=== PATIENT | female | born 1940 | race Hispanic/Latino ===

== ENCOUNTER 2018-11-18 00:08 | Emergency (ER) | payer SELFPAY ==
--- OUTSIDE RECORDS SUMMARY | 2018-11-18 00:11 | XMS REPORT ---
:1940 Author Organization e[employer] Care Team Providers Name Role Phone Alejandra Oliva Provider Role Unavailable Allergies, Adverse Reactions, Alerts Substance Reaction Event Type N.K.D.A. Info Not Available Non Drug Allergy Problems Problem Type Condition Code Onset Dates Condition Status Problem High blood pressure I10 Active Problem Postnasal drip R09.82 Active Problem Circulation problem I99.9 Active Problem Shortness of breath R06.02 Active Problem Acquired hypothyroidism E03.9 Active Problem Essential hypertension I10 Active Problem Heart disease I51.9 Active Problem High cholesterol E78.00 Active Problem Migraines G43.909 Active Problem Mixed hyperlipidemia E78.2 Active Assessment Essential hypertension I10 Active Assessment Respiratory symptoms R09.89 Active Assessment Acquired hypothyroidism E03.9 Active Assessment Mixed hyperlipidemia E78.2 Active Assessment Persistent cough for 3 weeks or R05 Active longer Assessment Shortness of breath R06.02 Active Problem Persistent cough for 3 weeks or R05 Active longer Assessment Postnasal drip R09.82 Active Problem Respiratory symptoms R09.89 Active Medications Medication Code Code Instructions Start End Status Dosage System Date Date Hydrochlorothiazide [facility] 39464512946 12.5 MG Orally Active 1 tablet Once daily in the morning Timolol Maleate ND 50637058959 10 MG Orally Active 1 tablet Twice a day with food Calcio Lex NDC 0 Active not defined Augmentin [facility] 64977580011 500-125 MG October 31October Active 1 tablet Orally every 2018 26, 12 hrs 2019 Losartan Potassium ND 84209337555 50 MG Orally Active 1 tablet Once a day Vitamin D3 ND 82946949587 2000 UNIT Active 1 capsule Orally Once a day ProAir HFA ND 51469487833 108 (90 Base) October 31, Active 2 puffs MCG/ACT 2019 as needed Inhalation for every 4-6 hrs sob/wheez ing Atorvastatin Calcium ND 08707808030 40 MG Orally Active 1 tablet Once a day Levothyroxine Sodium ND 68836858333 100MCG Orally Active 1 tablet Once a day on an empty stomach in the morning Results No Known Results Summary Purpose eClinicalWorks Submission
[2018-11-18 01:08] LABS: Absolute Lymphocytes (CBC) 2.3 K/uL (0.7-4.9); Absolute Neutrophil 6.9 K/uL (1.8-8.0); Basophils % 0.6 % (0-1.3); Eosinophils % 5.5 % (0-4.4); Hematocrit 39.5 % (36.0-45.0); Lymphocytes % 21.3 % (15.3-44.8); MPV 10.8 fL (7.6-11.3); Monocytes % 9.4 % (3.3-12.3); RBC Red Blood Cell Count 4.11 M/uL (3.86-4.86)
[2018-11-18 01:22] LABS: Potassium 4.3 mmol/L (3.5-5.1)
[2018-11-18] MEDS ORDERED: MECLIZINE HCL 12.5 MG TAB ONE (01:33)
--- NOTE | 2018-11-18 02:57 | ER ---
Nurse's Notes [facility] Name: Brittany Villarreal Age: 78 yrs Sex: Female : 1940 Arrival Date: 11/18/2018 Time: 00:14 Bed 7 Private MD: Alejandra Oliva Diagnosis: Uncontrolled hypertension. Dizziness Presentation: 11/18 00:25 Presenting complaint: Child states: pt with increased blood pressure tonight. pt was ak1 assessed earlier in the evening by EMS and they refused transport. pt takes unknown medication for blood pressure. pt PCP Dr. Whatley. Transition of care: patient was not received from another setting of care. Onset of symptoms was November 18, 2018. Risk Assessment: Do you want to hurt yourself or someone else? Patient reports no desire to harm self or others. Initial Sepsis Screen: Does the patient meet any 2 criteria? No. Patient's initial sepsis screen is negative. Does the patient have a suspected source of infection? No. Patient's initial sepsis screen is negative. Care prior to arrival: None. 00:25 Method Of Arrival: Wheelchair ak1 00:25 Acuity: [place]ERETTE 3 ak1 Triage Assessment: 00:36 General: Appears in no apparent distress. Behavior is calm, cooperative. Pain: Denies ak1 pain. EENT: No signs and/or symptoms were reported regarding the EENT system. Neuro: Level of Consciousness is awake, alert, obeys commands, Oriented to person, Veterinary Laboratory Technician are equal bilaterally Moves all extremities. Gait is steady, Speech is normal, Facial symmetry appears normal. Cardiovascular: No deficits noted. Respiratory: No deficits noted. GI: No signs and/or symptoms were reported involving the gastrointestinal system. : No signs and/or symptoms were reported regarding the genitourinary system. Derm: No signs and/or symptoms reported regarding the dermatologic system. Musculoskeletal: No signs and/or symptoms reported regarding the musculoskeletal system. Historical: - Allergies: 00:36 No Known Allergies; ak1 - Home Meds: 00:36 Synthroid Oral [Active]; Aspirin Oral [Active]; atorvastatin oral oral [Active]; ak1 unknown blood pressure medication [Active]; - PMHx: 00:36 Hypertension; Thyroid problem; Hyperlipidemia; ak1 - PSHx: 00:36 ear sx; breast sx duct clogged; Hysterectomy; right knee sx; Tonsillectomy; ak1 - Immunization history:: Adult Immunizations up to date, Flu vaccine is up to date. - Social history:: Smoking status: Patient/guardian denies using tobacco. - Ebola Screening: : No symptoms or risks identified at this time. Screenin:39 Abuse screen: Denies threats or abuse. Denies injuries from another. Nutritional ak1 screening: No deficits noted. Tuberculosis screening: No symptoms or risk factors identified. Fall Risk None identified. Assessment: 01:21 Reassessment: Patient appears in no apparent distress at this time. No changes from ak1 previously documented assessment. pt taken to CT. Vital Signs: 00:24 BP 184 / 84; Pulse 74; Resp 16; Temp 98.2; Pulse Ox 97% on R/A; Weight 65.77 kg (R); ak1 Height 5 ft. 7 in. (170.18 cm) (R); Pain 0/10; 00:36 BP 167 / 75; Pulse 72; Resp 16; Pulse Ox 98% on R/A; ak1 03:13 BP 178 / 83; Pulse 65; Resp 18; Temp 98.2; Pulse Ox 98% on R/A; Pain 0/10; ak1 00:24 Body Mass Index 22.71 (65.77 kg, 170.18 cm) ak1 ED Course: 00:14 Patient arrived in ED. es 00:14 Alejandra Oliva MD is Private Physician. es 00:17 Mahad Dumont MD is Attending Physician. pkl 00:24 Juliana Mata, DELMAR is Primary Nurse. ak1 00:26 Triage completed. ak1 00:36 Arm band placed on Patient placed in an exam room, on a stretcher, on pulse oximetry, ak1 Patient notified of wait time. 00:39 Patient has correct armband on for positive identification. Placed in gown. Bed in low ak1 position. Call light in reach. Side rails up X2. Adult w/ patient. Pulse ox on. NIBP on. Door closed. Warm blanket given. Head of bed elevated. 00:57 Initial lab(s) drawn, by me, sent to lab. Inserted saline lock: 22 gauge in right tl2 antecubital area, using aseptic technique. Blood collected. 02:28 CT Head Brain wo Cont In Process Unspecified. EDMS 02:56 Alejandra Oliva MD is Referral Physician. pkl 03:15 No provider procedures requiring assistance completed. IV discontinued, intact, ak1 bleeding controlled, No redness/swelling at site. Pressure dressing applied. Administered Medications: 01:20 Drug: Meclizine 50 mg Route: PO; ak1 03:17 Follow up: Response: No adverse reaction ak1 Outcome: 02:57 Discharge ordered by . pkl 03:15 Discharged to home via wheelchair, with family. ak1 03:15 Condition: improved 03:15 Discharge instructions given to patient, family, Instructed on discharge instructions, follow up and referral plans. medication usage, Demonstrated understanding of instructions, follow-up care, medications, Prescriptions given X 2. 03:16 Patient left the ED. ak1 Signatures: Dispatcher [employer] Mahad Marie MD MD pkGeorgette Whittaker Amber RN RN ak1 Smiley Bhat RN RN tl2
--- NOTE | 2018-11-18 02:58 | EDPHYS ---
Physician Documentation [facility] Name: Brittany Villarreal Age: 78 yrs Sex: Female : 1940 Arrival Date: 11/18/2018 Time: 00:14 Bed 7 Private MD: Alejandra Oliva ED Physician Mahad Dumont HPI: 11/18 00:42 This 78 yrs old Female presents to ER via Wheelchair with complaints of High pkl Blood Pressure. 00:42 Onset: The symptoms/episode began/occurred just prior to arrival, 3 hour(s) ago. pkl Associated signs and symptoms: Pertinent positives: dizziness. Historical: - Allergies: 00:36 No Known Allergies; ak1 - Home Meds: 00:36 Synthroid Oral [Active]; Aspirin Oral [Active]; atorvastatin oral oral [Active]; ak1 unknown blood pressure medication [Active]; - PMHx: 00:36 Hypertension; Thyroid problem; Hyperlipidemia; ak1 - PSHx: 00:36 ear sx; breast sx duct clogged; Hysterectomy; right knee sx; Tonsillectomy; ak1 - Immunization history:: Adult Immunizations up to date, Flu vaccine is up to date. - Social history:: Smoking status: Patient/guardian denies using tobacco. - Ebola Screening: : No symptoms or risks identified at this time. ROS: 00:42 Eyes: Negative for injury, pain, redness, and discharge, ENT: Negative for injury, pkl pain, and discharge, Neck: Negative for injury, pain, and swelling, Cardiovascular: Negative for chest pain, palpitations, and edema, Respiratory: Negative for shortness of breath, cough, wheezing, and pleuritic chest pain, Abdomen/GI: Negative for abdominal pain, nausea, vomiting, diarrhea, and constipation, Back: Negative for injury and pain, : Negative for injury, bleeding, discharge, and swelling, MS/Extremity: Negative for injury and deformity, Skin: Negative for injury, rash, and discoloration. 00:42 Neuro: Positive for dizziness, Negative for loss of consciousness. Exam: 00:42 Head/Face: Normocephalic, atraumatic. Eyes: Pupils equal round and reactive to light, pkl extra-ocular motions intact. Lids and lashes normal. Conjunctiva and sclera are non-icteric and not injected. Cornea within normal limits. Periorbital areas with no swelling, redness, or edema. ENT: Nares patent. No nasal discharge, no septal abnormalities noted. Tympanic membranes are normal and external auditory canals are clear. Oropharynx with no redness, swelling, or masses, exudates, or evidence of obstruction, uvula midline. Mucous membranes moist. Neck: Trachea midline, no thyromegaly or masses palpated, and no cervical lymphadenopathy. Supple, full range of motion without nuchal rigidity, or vertebral point tenderness. No Meningismus. Chest/axilla: Normal chest wall appearance and motion. Nontender with no deformity. No lesions are appreciated. Cardiovascular: Regular rate and rhythm with a normal S1 and S2. No gallops, murmurs, or rubs. Normal PMI, no JVD. No pulse deficits. Respiratory: Lungs have equal breath sounds bilaterally, clear to auscultation and percussion. No rales, rhonchi or wheezes noted. No increased work of breathing, no retractions or nasal flaring. Abdomen/GI: Soft, non-tender, with normal bowel sounds. No distension or tympany. No guarding or rebound. No evidence of tenderness throughout. Back: No spinal tenderness. No costovertebral tenderness. Full range of motion. Skin: Warm, dry with normal turgor. Normal color with no rashes, no lesions, and no evidence of cellulitis. MS/ Extremity: Pulses equal, no cyanosis. Neurovascular intact. Full, normal range of motion. Neuro: Awake and alert, GCS 15, oriented to person, place, time, and situation. Cranial nerves II-XII grossly intact. Motor strength 5/5 in all extremities. Sensory grossly intact. Cerebellar exam normal. Normal gait. Vital Signs: 00:24 BP 184 / 84; Pulse 74; Resp 16; Temp 98.2; Pulse Ox 97% on R/A; Weight 65.77 kg (R); ak1 Height 5 ft. 7 in. (170.18 cm) (R); Pain 0/10; 00:36 BP 167 / 75; Pulse 72; Resp 16; Pulse Ox 98% on R/A; ak1 03:13 BP 178 / 83; Pulse 65; Resp 18; Temp 98.2; Pulse Ox 98% on R/A; Pain 0/10; ak1 00:24 Body Mass Index 22.71 (65.77 kg, 170.18 cm) ak1 MDM: 00:18 Patient medically screened. pkl 02:55 Data reviewed: vital signs, nurses notes, lab test result(s), radiologic studies, CT pkl scan. 11/18 00:42 Order name: CBC with Diff; Complete Time: 01:23 pkl 11/18 00:42 Order name: Chem 7; Complete Time: 01:23 pkl 11/18 00:42 Order name: CT Head Brain wo Cont pkl Administered Medications: 01:20 Drug: Meclizine 50 mg Route: PO; ak1 03:17 Follow up: Response: No adverse reaction ak1 Disposition: 11/18/18 02:57 Discharged to Home. Impression: Uncontrolled hypertension. Dizziness. - Condition is Stable. - Prescriptions for Antivert 25 mg Oral Tablet - take 1 tablet by ORAL route every 8 hours As needed; 20 tablet. Clonidine 0.1 mg Oral Tablet - take 1 tablet by ORAL route every 12 hours; 30 tablet. - Medication Reconciliation Form, Thank You Letter, Antibiotic Education, Prescription Opioid Use form. - Follow up: Alejandra Oliva MD; When: 2 - 3 days; Reason: Re-evaluation by your physician. - Problem is new. - Symptoms have improved. Signatures: Dispatcher [employer] EDMS Mahad Dumont MD MD pkJuliana Luna RN RN ak1 Corrections: (The following items were deleted from the chart) 03:16 02:57 11/18/2018 02:57 Discharged to Home. Impression: Uncontrolled hypertension. ak1 Dizziness. Condition is Stable. Forms are Medication Reconciliation Form, Thank You Letter, Antibiotic Education, Prescription Opioid Use. Follow up: Alejandra Oliva; When: 2 - 3 days; Reason: Re-evaluation by your physician. Problem is new. Symptoms have improved. pkl
--- NOTE | 2018-11-18 10:28 | RAD REPORT ---
EXAM DESCRIPTION: CT HEAD WITHOUT CONTRAST CLINICAL HISTORY: DIZZINESS COMPARISON: 11/18/2018 TECHNIQUE: Axial [address] imaging of the brain. Reformatted coronal and sagittal images ob tained. This examination was performed according to our departmental dose optimization program, which include s automated exposure control, adjustment of the mA and/or kV according to patient size and/or use of iterative reconstruction technique. FINDINGS: The ventricles and extra-axial fluid spaces are mildly prominent due to cortical volume lo ss. Mild decreased white matter attenuation secondary to chronic microvascular ischemic change. There is no hemorrhage. No mass lesion. No midline shift. No acute infarction. Normal cerebellum and vermis. Fourth ventricle is midline. Prepontine cisterns are not effaced. Atherosclerotic calcifications within the internal carotid arteries and vertebral arteries. Imaged intraorbital contents appear normal. Intact skull base. Evidence of left mastoidectomy. Partia l opacification of the inferior right mastoid air cells. Unremarkable calvarium and scalp soft tissue s. IMPRESSION: 1. Mild senescent brain changes. No intracranial acute finding. 2. Status post left mastoidectomy. Mild right mastoid effusion. Electronically signed by: Huong Shabazz DO 11/18/2018 2:39 AM CDT Due to temporary technical issues with the PACS/Fluency reporting system, reports are being signed by the in house radiologist as a courtesy to ensure prompt reporting. The interpreting radiologist is f ully responsible for the content of the report.
== END 2018-11-18 03:16 | disposition home or self-care (01) ==
LOC: ER 00:08
DX: I10 Essential (primary) hypertension (principal); E78.5 Hyperlipidemia, unspecified; E07.9 Disorder of thyroid, unspecified; Z79.82 Long term (current) use of aspirin
CPT/HCPCS: 36415; 70450; 80048; 85025; 99284

== ENCOUNTER 2021-01-09 16:23 | Inpatient (IN) | payer OTHER ==
--- OUTSIDE RECORDS SUMMARY | 2021-01-09 16:33 | XMS REPORT | Continuity of Care Document ---
:1940 Author Organization [facility] t Address [address] [place] [address] Care Team Providers Name Role Phone Aide Lei Attending Clinician Unavailable Wyatt Scott Admitting Clinician Unavailable Payers Payer Name Policy Type Policy Number Effective Date Expiration Date S ource Problems This patient has no known problems. Allergies, Adverse Reactions, Alerts Allergy Allergy Status Severity Reaction(s) Onset Inactive Treating Comm ents Source Name Type Date Date Clinician No Known DA Active U AMANDA Allergie 01-08 Corpus s 00:00: [address] Medications Ordered Filled Start Stop Current Ordering Indication Dosage Frequency Signature Comments Components Source Medication Medication Date Date Medication? Clinician (SIG) Name Name ProAir HFA ProAir HFA Yes Alejandra [address] [facility] needed for [facility] - 00:00: sob[facility] Augmentin Augmentin 2019- No Alejandra [address] [facility]26 [facility] Hydrochloro Hydrochloro Yes Alejandra [address] [facility] thiazide thiazide [facility] in the [facility] Timolol Timolol Yes Alejandra [address] [facility] Maleate Maleate [facility] with food [facility] Calcio del Calcio del Yes Alejandra not [facility] defined [facility] Losartan Losartan Yes Alejandra [address] Potassium Potassium [facility] Vitamin D3 Vitamin D3 Yes Alejandra [address] [facility]ender [facility] Atorvastati Atorvastati Yes Alejandra [address] [facility] n Calcium n Calcium [facility] Levothyroxi Levothyroxi Yes Alejandra [address] [facility] ne Sodium ne Sodium [facility] on an [facility] stomach in l the [facility]pat[facility] morning ent Clinics Procedures This patient has no known procedures. Encounters Start End Encounter Admission Attending Care Care Encounter Source Date/Time Date/Time Type Type Clinicians Facility Department ID 2021-01-08 2021-01-08 Emergency EM Do, [facility] [id number] [facility] 19:45:00 19:45:00 [place] [id number] [facility] 2020-12-27 2020-12-27 Outpatient [facility] [id number] [facility] 2020-12-06 2020-12-06 Outpatient [facility] [id number] [facility] 2020-10-05 2020-10-05 Outpatient [facility] [id number] [facility] 2020-10-04 2020-10-04 Outpatient [facility] [id number] [facility] 2019-01-03 2019-01-03 Outpatient [facility] [id number] [facility] 11:36:00 11:36:00 [facility] 2018-10-31 2018-10-31 [facility] [id number] 09:00:00 09:00:00 [facility] Results Test Description Test Time Test Comments Results Result Comments Source COVID 19 INHOUSE AG 2021-01-09 12:10:00 Test Item Value Reference Range Interpretation Comme nts COVID 19 INHOUSE AG (test NEGATIVE Negative " The Gisela SARS Antigen JOANNA does not code = [id number]) differen tiate betweenSARS-CoV and SARS-CoV-2 " e Gisela SARS Antigen JOANNA employs immunof luorescencetechnology in a sandwich gina gn that is used with Gisela todetect nucleocapsid protein from SARS-CoV and SA RS-CoV-2.This test allows for the detecti on of SARS-CoV [id number]. The test detects, but does not differ entiate,between the two viruses. " Resu lts are for the identification of RCSS-MvK-0zwjpklnnbmwp protein antigen . Antigen is generallydetect able in upper respiratory specimens durin g the acutephase of infection. Posi tive results indicate the presenceof everardo l antigens, but clinical correlation wit h patienthistory and other diagnosti c information is necessary todet ermine infection status. Positive result s do not rule outbacterial in fection or co-infection with other viru ses. Theagent detected may not be the definite cause of disease. " Nega tive results should be treated as pres umptive " This test has not been FDA cl eared or approved; the testhas been au thorized by FDA under an Emergency UseAu thorization (EUA) for use by laboratories certified undert CLIA that meet the r equirements to perform moderate,high o r waived complexity tests. This garry t is authorized foruse at the Point of Ca re (POC), i.e., in patient careset tings operating under a CLIA Certificat e of Waiver,Certificate of Compliance, or Certificate of Accreditation - XR L-SPINE 2/3 [id number] 22:50:00 [facility] 1940 Sex: F Patient Name: MANOJ RONDON Unit No: [id number] EXAMS: CPT CODE: [id number] XR L-SPINE 2/3 [id number] Reason: FALL R HIP PAIN PROCEDURE INFORMATION: Exam: XR Lumbosacral Spine Exam date and time: 01/08/2021 8:18 PM Age: 80 years old Clinical indication: Injury or trauma; Fall; Blunt trauma (contusions or hematomas); Additional info: Fall R hip pain TECHNIQUE: Imaging protocol: XR of the lumbosacral spine. Views: 2 or 3 views. COMPARISON: CR XR HIP BI W/PELVIS 01/08/2021 9:18 PM FINDINGS: Bones/joints: No evidence of vertebral body height loss. Alignment lumbar spine well preserved without significant listhesis. Bony degenerative changes moderate. Soft tissues: Unremarkable soft tissues. Vasculature: Vascular calcifications. Suspected abdominal aortic aneurysm. IMPRESSION: 1. No acute fracture or dislocation of the lumbar spine. 2. Suspected abdominal aortic aneurysm. Aortic ultrasound recommended when clinically appropriate. INTERNAL CODING PURPOSES ONLY RESULT CODE: CVR t [id number] Reported and signed by: Marco Gutierrez MD CC: Lou Gonzalez STONE MASON; Jesica Lovell DO Technologist: Bayron Painter CT Trscrpt Dt/ ([id number])[email or web address].VR Orig Print D/T: S: 01/08/2021(2249) [place] [facility] NAME: MANOJ [facility] [id number] [facility] PHYS: [place] [address] : 1940 AGE: 80 SEX: F LOC: [place] PHONE #: [phone] EXAM DATE: 01/08/2021 STATUS: REG ER FAX #: RAD NO: DC Dt: PAGE 1 Signed ReportBASIC METABOLIC PANEL 2021-01-08 22:45:00 Test Item Value Reference Range Interpretation Comments SODIUM (test code = 132 MMOL/L 133-145 L NA) POTASSIUM (test code = 4.4 MMOL/L 3.6-5.2 N K) CHLORIDE (test code = 96 MMOL/L 100-108 L CL) CARBON DIOXIDE (test 26 MMOL/L 22-32 N code = CO2) GLUCOSE (test code = 171 MG/DL 65-99 H Results of this assay GLU) method may be f alsely depressed orele vated if patient is t aking sulfasalazine. BLOOD UREA NITROGEN 28 MG/DL 6-20 H (test code = BUN) GLOMERULAR FILTRATION 50 32-75 N Report ing units: RATE (test code = GFR) mL/mi n/1.73m\\S\\2 (Modified MDRD Formula) CREATININE (test code 1.05 MG/DL 0.60-1.00 H = CREAT) CALCIUM (test code = 7.7 MG/DL 8.7-10.5 L CA) - XR HIP BI [id number] 22:43:00 [facility] : 1940 Sex: F Patient Name: MANOJ RONDON Unit No: [id number] EXAMS: CPT CODE: [id number] XR HIP BI [id number] Reason: FALL R HIP PAIN PROCEDURE INFORMATION: Exam: XR Bilateral Hips Exam date and time: 01/08/2021 8:18 PM Age: 80 yearsold Clinical indication: Injury or trauma; Fall; Blunt trauma (contusions or hematomas); Right; Hip; Additional info: Fall R hip pain TECHNIQUE: Imaging protocol: XR b ilateral hips. Views: 3 or 4 views of hips with pelvis when performed. COMPARISON: No relevant images were readily available for comparison purposes. FINDINGS:Bones/joints: Mild to moderately displaced acute appearing subcapital right femoral neck fracture. Bony degenerative changes. Soft tissues: Unremarkable soft tissues. Vasculature: Vascular calcifications. IMPRESSION: Acute right femoral neck fracture. INTERNAL CODING PURPOSES ONLY RESULT CODE: CVR at 2243 Reported and signed by: Marco Gutierrez MD CC: Lou Gonzalez STONE MASON; Jesica Lovell DO Technologist: Bayron Painter CT Trscrpt Dt/ ([id number])[email or web address].VR Orig Print D/T: S: 01/08/2021 (2242) [place] FSED NAME: MANOJ RONDON [id number] [place] [address] PHYS: [place] [address] : 1940 AGE: 80 SEX: F LOC: [place] PHONE #: [phone] EXAM DATE: 01/08/2021 STATUS: REG ER FAX #: RAD NO: DC Dt: PAGE 1 Signed ReportCBC W/AUTO [id number] 22:03:00 Test Item Value Reference Range Interpretation Comments WHITE BLOOD CELL (test 15.06 x10 3/uL 4.80-10.80 H Res ults called to code = WBC) and read back Nafisa ALMEIDA RN;2202, 01/08/21, D.LAB.AMQ. RED BLOOD CELL (test 3.32 x10 6/uL 4.2-5.4 L code = RBC) HEMOGLOBIN (test code = 10.6 G/DL 12.0-16.0 L HGB) HEMATOCRIT (test code = 32.2 % 37-47 L HCT) MEAN CELL VOLUME (test 97.0 FL 81-99 N code = MCV) MEAN CELL HGB (test 31.9 PG 27-31 H code = MCH) MEAN CELL HGB 32.9 G/DL 33-37 L CONCENTRATION (test code = MCHC) RED CELL DISTRIBUTION 12.8 % 11.5-14.5 N WIDTH (test code = RDW) PLATELET COUNT (test 190 x10 3/uL 150-450 N code = PLT) MEAN PLATELET VOLUME 11.0 FL 7.4-10.4 H (test code = MPV) NEUTROPHIL % (test code 77.7 % 42-86 N = NT%) LYMPHOCYTE % (test code 12.2 % 24-44 L = LY%) MONOCYTE % (test code = 9.1 % 0.0-4.0 H MO%) EOSINOPHIL % (test code 0.9 % 0.0-2.7 N = EO%) BASOPHIL % (test code = 0.1 % 0.0-0.5 N BA%) NEUTROPHIL # (test code 11.71 x10 3/uL 1.8-7.7 H = NT#) LYMPHOCYTE # (test code 1.83 x10 3/uL 1.0-4.8 N = LY#) MONOCYTE # (test code = 1.37 x10 3/uL 0.0-0.8 H MO#) EOSINOPHIL # (test code 0.13 x10 3/uL 0.0-0.5 N = EO#) BASOPHIL # (test code = 0.02 x10 3/uL 0.0-0.2 N BA#)
[2021-01-09 17:15] LABS: Urine Blood 3+ (Negative); Urine Glucose Negative (Negative); Urine Protein Negative (Negative); Urine Specific Gravity 1.015 (1.005-1.030)
[2021-01-09 17:28] LABS: Absolute Lymphocytes (CBC) 1.7 K/uL (0.7-4.9); Basophils % 0.4 % (0-1.3); Hematocrit 31.8 % (36.0-45.0); Lymphocytes % 18.2 % (15.3-44.8); MPV 9.5 fL (7.6-11.3); RBC Red Blood Cell Count 3.38 M/uL (3.86-4.86)
[2021-01-09 17:32] LABS: Protime INR 1.03
[2021-01-09] MEDS ORDERED: MORPHINE 4 MG/ML SYR ONE (17:37)
[2021-01-09 17:50] LABS: Urine Bacteria 20-50 /HPF (<20); Urine RBC 20-50 /HPF (NONE SEEN)
[2021-01-09 17:50] LABS: ALT/SGPT 22 U/L (12-78); AST/SGOT 21 U/L (15-37); Albumin 3.4 g/dL (3.4-5.0); Alkaline Phosphatase 42 U/L (45-117); BUN Blood Urea Nitrogen 21 mg/dL (7-18); Bicarbonate 29 mmol/L (21-32); Bilirubin Direct 0.2 mg/dL (0-0.2); Bilirubin Total 0.7 mg/dL (0.2-1.0); Glucose Level 124 mg/dL (74-106); Magnesium 2.2 mg/dL (1.8-2.4); NT PRO-BNP 790 pg/mL (<450); Potassium 4.9 mmol/L (3.5-5.1); Sodium Level 126 mmol/L (136-145); Troponin (Emerg Dept Use Only) < 0.02 ng/mL (0.0-0.045)
[2021-01-09] MEDS ORDERED: ONDANSETRON 4 MG/2 ML VIAL ONE (18:06)
--- NOTE | 2021-01-09 19:01 | RAD REPORT ---
EXAM DESCRIPTION: RAD - Chest Single View - 01/09/2021 5:20 pm CLINICAL HISTORY: fall COMPARISON: Chest Single View dated 02/09/2019 FINDINGS: No evidence of edema or pneumonia. The heart size is within normal limits.No acute osseous abnormality. No significant pleural effusions or pneumothorax. Pacemaker. IMPRESSION: No acute cardiopulmonary disease.
--- NOTE | 2021-01-09 19:02 | P.HP ---
Certification for Inpatient Patient admitted to: Inpatient With expected LOS: >2 Midnights Patient will require the following post-hospital care: None Practitioner: I am a practitioner with admitting privileges, knowledge of patient current condition, hospital course, and medical plan of care. Services: Services provided to patient in accordance with Admission requirements found in Title 42 Section 412.3 of the Code of Federal Regulations <JohnniereannaTigre - Last Filed: 01/09/21 18:57> Patient History Date of Service: 01/09/21 Primary Care Provider: Unknown Reason for admission: Right hip fracture History of Present Illness: 80-year-old female with history of hypertension, hyperlipidemia, hypo thyroidism presents emergency department after a fall yesterday where she was diagnosed with a right femoral neck fracture, patient left AGAINST MEDICAL ADVICE from emergency department in [place] to come down here for further evaluation and management. Patient was evaluated in the emergency department, labs were significant for sodium 126 GFR 68 glucose 124 BNP 790 urine with 20-50 bacteria trace leukocytes on urinalysis. Orthopedics was consulted recommends admission for further management. - Past Medical/Surgical History -: Hypertension -: Hyperlipidemia -: Hypothyroidism -: Right ear, tonsillectomy, right knee arthroscopy, colonic polyp removal -: Thyroidectomy, cataract surgery Psychosocial/ Personal History: Patient lives at home with her daughter and is retired - Family History Father -: Heart disease Mother -: Heart disease Brother -: Heart disease Sister -: Heart disease - Social History Smoking Status: Never smoker Alcohol use: No CD- Drugs: No Caffeine use: Yes Place of Residence: Home <Tigre Gupta - Last Filed: 01/09/21 18:57> Date of Service: 01/09/21 <Shahram Foy - Last Filed: 01/16/21 19:24> Allergies No Known Allergies Allergy (Verified 01/09/21 23:10) Review of Systems 10-point ROS is otherwise unremarkable Musculoskeletal: Other (Right hip pain) <Tigre Gupta - Last Filed: 01/09/21 18:57> Physical Examination - Physical Exam General: Alert, In no apparent distress, Oriented x3 HEENT: Atraumatic, PERRLA, Mucous membr. moist/pink, EOMI, Sclerae nonicteric Neck: Supple, 2+ carotid pulse no bruit, No LAD, Without JVD or thyroid abnormality Respiratory: Clear to auscultation bilaterally, Normal air movement Cardiovascular: Regular rate/rhythm, Normal S1 S2 Gastrointestinal: Normal bowel sounds, No tenderness Musculoskeletal: No tenderness Integumentary: No rashes Neurological: Normal speech, Normal strength at 5/5 x4 extr, Normal tone, Normal affect Lymphatics: No axilla or inguinal lymphadenopathy - Studies Laboratory Data (last 24 hrs) 01/09/21 17:03: PT 11.9, INR 1.03 01/09/21 17:01: WBC 9.10, Hgb 11.0 L, Hct 31.8 L, Plt Count 179 01/09/21 17:01: Sodium 126 L, Potassium 4.9, BUN 21 H, Creatinine 0.81, Glucose 124 H, Magnesium 2.2, Total Bilirubin 0.7, AST 21, ALT 22, Alkaline Phosphatase 42 L <Tigre Gupta - Last Filed: 01/09/21 18:57> Assessment and Plan - Plan Assessment: Right femoral neck fracture Mild hyponatremia Hypertension, hyperlipidemia, hypothyroidism Plan: Right femoral neck fracture: Orthopedics consulted, n.p.o. after midnight, as needed pain medications. SCDs for DVT prophylaxis. Appreciate further input from orthopedics. Mild hyponatremia: Patient appears dry, will continue gentle hydration overnight, recheck with morning labs. Hypertension, hyperlipidemia, hypothyroidism: Continue medications when appropriate. DVT PPX: SCDs Code status: Full Discharge Plan: Home Plan to discharge in: Greater than 2 days - Advance Directives Does patient have a Living Will: No Does patient have a Durable POA for Healthcare: No - Code Status/Comfort Care Code Status Assessed: Yes (Full code) Critical Care: No Time Spent Managing Pts Care (In Minutes): 55 <Tigre Gupta - Last Filed: 01/09/21 18:57> - Problems (Diagnosis) (1) History of cardiac defibrillator placement Current Visit: Yes Status: Acute (2) Cardiomyopathy Current Visit: Yes Status: Acute Qualifiers: Cardiomyopathy type: dilated Qualified Code(s): I42.0 - Dilated cardiomyopathy (3) HTN (hypertension) Current Visit: Yes Status: Acute (4) Dyslipidemia Current Visit: Yes Status: Acute <Shahram Foy - Last Filed: 01/16/21 19:24> Date of Service: 01/10/21 Subjective: Agree with plan of care as mentioned above Physical Examination: Vitals: Afebrile vital signs are stable Physical exam: Cardiovascular: Within normal limits. Lungs: Within normal limits Abdomen: Within normal limits Neuro: Awake, alert, oriented to person place and time Assessment: 1. Hip fracture 2. Hypothyroidism 3. 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 Sick sinus syndrome status post pacemaker placement Plan: 1. Continue with current plan of care <Shahram Foy - Last Filed: 01/16/21 19:24>
[2021-01-09] MEDS ORDERED: LORazepam 2 MG/ML VIAL ONE (19:49)
[2021-01-09] MEDS ORDERED: KETOROLAC 30 MG/ML INJ ONE (19:49)
[2021-01-09] MEDS ORDERED: CEFTRIAXONE/SWI 1gm 1 GM/10 ML SYR ONE (19:50)
[2021-01-09] MEDS ORDERED: ACETAMINOPHEN 500 MG TAB PO PRN (21:35)
[2021-01-09] MEDS: NA CHLORIDE 0.9% 1,000 ML IV SCH (21:58)
[2021-01-09] MEDS: MORPHINE 2 MG/ML SYR IV PRN (22:12)
[2021-01-09] MEDS ORDERED: NA CHLORIDE 0.9% 1,000 ML ONE (22:15)
[2021-01-09] MEDS ORDERED: MORPHINE 2 MG/ML SYR ONE (22:34)
[2021-01-09 23:59] VITALS: BMI 22.4
[2021-01-10] MEDS: MORPHINE 2 MG/ML SYR IV PRN ×2 (04:03→12:52)
[2021-01-10] MEDS ORDERED: MORPHINE 2 MG/ML SYR ONE ×2 (04:24→13:14)
[2021-01-10 05:14] LABS: Absolute Lymphocytes (CBC) 1.9 K/uL (0.7-4.9); Basophils % 0.4 % (0-1.3); Hematocrit 29.6 % (36.0-45.0); Lymphocytes % 19.6 % (15.3-44.8); MPV 10.9 fL (7.6-11.3); RBC Red Blood Cell Count 3.13 M/uL (3.86-4.86)
[2021-01-10 05:27] LABS: Bilirubin Total 0.4 mg/dL (0.2-1.0); Magnesium 2.2 mg/dL (1.8-2.4); Potassium 4.6 mmol/L (3.5-5.1); Protein, Total 6.6 g/dL (6.4-8.2); Thyroid Stimulating Hormone 0.508 uIU/mL (0.360-3.740)
[2021-01-10] MEDS ORDERED: NA CHLORIDE 0.9% 1,000 ML ONE (07:52)
[2021-01-10] MEDS: NA CHLORIDE 0.9% 1,000 ML IV SCH (08:45)
--- NOTE | 2021-01-10 10:43 | RAD REPORT ---
EXAM DESCRIPTION: RAD - Pelvis - 01/10/2021 10:01 am CLINICAL HISTORY: RIGHT HIP FRACTURE COMPARISON: Pelvis dated 02/09/2019 FINDINGS: Subcapital fracture proximal right femur is present with varus angulation. No aggressive b tana lesion. Vascular calcification noted.
--- NOTE | 2021-01-10 10:45 | RAD REPORT ---
EXAM DESCRIPTION: RAD - Hip Right 2 View - 01/10/2021 10:01 am CLINICAL HISTORY: RIGHT HIP FRACTURE COMPARISON: Hip Right 2 View dated 09/30/2020 FINDINGS: Subcapital fracture is seen of proximal right femur with varus angulation. No dislocation.
[2021-01-11] MEDS: NA CHLORIDE 0.9% 1,000 ML IV SCH ×3 (00:33→20:35)
[2021-01-11] MEDS ORDERED: MELATONIN 5 MG TABLET PO ONE (01:10)
--- NOTE | 2021-01-11 03:21 | CON ---
Date of Consultation: 01/10/2021 History Of Present Illness: This is my first time seeing this patient to my knowledge. Apparently, she fell in the bathroom injuring her right lower extremity. She was seen and examined in the outspa e facility where she actually had x-rays taken with my understanding that she was recommended for david ortiz at that outside facility, but the patient decided that she would rather have it done here, and t herefore, I believe left that facility coming to this facility. On arrival to this facility, long loki po or joints were palpated without pain or crepitation with exception of her right hip. Any movemen t and manipulation of the right hip causes pain. X-ray revealed a highly displaced right femoral nec k fracture. Assessment: Patient with multiple medical problems, now with right femoral neck fracture. Plan: At this time, we discussed risks, benefits, and alternatives of different methods of treating this with the patient. She states that she understands and agrees to proceed with bipolar hemiarthro plasty. She has not yet had cardiac clearance and it is my understanding that she does have a dopple r, which is scheduled for today, so we will mostly likely do this tomorrow. Hopefully, she can get a ll her preoperative work done today or at least tomorrow early. Otherwise, all of her questions were answered. BRIANA Voice ID: [id number] Report ID: [id number]
[2021-01-11 03:54] LABS: Absolute Lymphocytes (CBC) 1.6 K/uL (0.7-4.9); Basophils % 0.4 % (0-1.3); Hematocrit 29.9 % (36.0-45.0); MPV 9.8 fL (7.6-11.3); RBC Red Blood Cell Count 3.17 M/uL (3.86-4.86)
[2021-01-11 04:29] LABS: Albumin 2.8 g/dL (3.4-5.0); Bilirubin Total 0.4 mg/dL (0.2-1.0); Potassium 4.9 mmol/L (3.5-5.1); Protein, Total 6.5 g/dL (6.4-8.2)
[2021-01-11] MEDS: HYDRALAZINE HCL 20 MG/ML VIAL IV PRN (08:55)
[2021-01-11] MEDS: MORPHINE 2 MG/ML SYR IV PRN ×2 (09:45→14:11)
[2021-01-11] MEDS: ONDANSETRON 4 MG/2 ML VIAL IV PRN (09:45)
[2021-01-11] MEDS: CALCIUM CARB 500MG/VIT D 200 IU TAB PO SCH (10:08)
[2021-01-11] MEDS: LEVOTHYROXINE SOD 0.088 MG TAB PO SCH (10:09)
--- NOTE | 2021-01-11 12:49 | ECHO ---
HEIGHT: 5 ft 6 in WEIGHT: 138 lb 14.26 oz DATE OF STUDY: 01/11/[address]: Jason Mcleod MD 2-DIMENSIONAL: YES M.MODE: YES DOPPLER: YES COLOR FLOW: YES TDS: PORTABLE: DEFINITY: BUBBLE STUDY: DIAGNOSIS: CARDIAC CLEARANCE CARDIAC HISTORY: CATHERIZATION: NO SURGERY: NO PROSTHETIC VALVE: NO PACEMAKER: YES MEASUREMENTS (cm) DIASTOLIC (NORMALS) SYSTOLIC (NORMALS) IVSd 1.2 (0.6-1.2) LA Diam 2.2 (1.9-4.0) LVEF 64% LVIDd 3.5 (3.5-5.7) LVIDs 2.3 (2.0-3.5) %FS 34% LVPWd 1.2 (0.6-1.2) Ao Diam 2.5 (2.0-3.7) 2 DIMENSIONAL ASSESSMENT: RIGHT ATRIUM: NORMAL LEFT ATRIUM: NORMAL RIGHT VENTRICLE: NORMAL LEFT VENTRICLE: NORMAL TRICUSPID VALVE: NORMAL MITRAL VALVE: NORMAL PULMONIC VALVE: NORMAL AORTIC VALVE: NORMAL PERICARDIAL EFFUSION: NONE AORTIC ROOT: NORMAL LEFT VENTRICULAR WALL MOTION: NORMAL DOPPLER/COLOR FLOW: MILD TRICUSPID REGURGITATION. COMMENTS: NORMAL 2-DIMENSIONAL ECHOCARDIOGRAM. EJECTION FRACTION 64%. MILD TRICUPSID REGURGITATION. NORMAL RIGHT VENTRICULAR SYSTOLIC PRESSURE. TECHNOLOGIST: SON MIDDLETON
--- NOTE | 2021-01-11 16:48 | EDPHYS ---
Physician Documentation [facility] Name: Brittany Villarreal Age: 80 yrs Sex: Female : 1940 Arrival Date: 01/09/2021 Time: 16:23 Bed 28 Private MD: ED Physician Shahram King HPI: 01/09 17:00 This 80 yrs old Female presents to ER via Wheelchair with complaints of Hip cp Pain. 17:00 The patient or guardian reports decreased range of motion, deformity, an injury, pain. cp sustained from a fall, from a standing position, the right lower extremity is shortened, The patient is not able to ambulate. Patient is not able to bear weight. Patient accompanied to the emergency department by daughter who is translating. Patient reports she had a slip and fall yesterday. Was seen in [place] at a emergency department there I was informed she had a right fractured hip. Patient reports she left AMA because she wanted to return home to have her hip repaired by Dr. Barry.. Historical: - Allergies: 16:26 No Known Allergies; ss - PMHx: 16:26 Hyperlipidemia; Hypertension; Thyroid problem; ss - Immunization history:: Adult Immunizations up to date. - Social history:: Smoking status: Patient denies any tobacco usage or history of. ROS: 17:02 Constitutional: Negative for body aches, chills, fever, poor PO intake. cp 17:02 Eyes: Negative for injury, pain, redness, and discharge. cp 17:02 ENT: Negative for ear pain, sore throat, difficulty swallowing, difficulty handling secretions. 17:02 Cardiovascular: Negative for chest pain, edema, palpitations. 17:02 Respiratory: Negative for cough, shortness of breath, wheezing. 17:02 Abdomen/GI: Negative for abdominal pain, nausea, vomiting, and diarrhea, constipation. 17:02 Back: Negative for pain at rest, pain with movement, radiated pain. 17:02 MS/extremity: Positive for injury or acute deformity, decreased range of motion, pain, of the right hip, Negative for paresthesias. 17:02 Neuro: Negative for altered mental status, headache, loss of consciousness, syncope, weakness. 17:02 All other systems are negative. Exam: 17:02 ECG was reviewed by the Attending Physician. cp 17:05 Constitutional: The patient appears in no acute distress, alert, awake, cp non-diaphoretic, non-toxic, well developed, well nourished. 17:05 Head/Face: Normocephalic, atraumatic. cp 17:05 Eyes: Periorbital structures: appear normal, Pupils: equal, round, and reactive to light and accomodation, Extraocular movements: intact throughout, Conjunctiva: normal, no exudate, no injection, Sclera: no appreciated abnormality, Lids and lashes: appear normal, bilaterally. 17:05 ENT: External ear(s): are unremarkable, Nose: is normal, Mouth: Lips: moist, Oral mucosa: pink and intact, moist, Posterior pharynx: Airway: no evidence of obstruction, patent. 17:05 Neck: C-spine: vertebral tenderness, is not appreciated, crepitus, is not appreciated, ROM/movement: is normal, is supple, without pain, no range of motions limitations. 17:05 Chest/axilla: Inspection: normal, Palpation: is normal, no crepitus, no tenderness. 17:05 Cardiovascular: Rate: normal, Rhythm: regular, Edema: is not appreciated, JVD: is not appreciated. 17:05 Respiratory: the patient does not display signs of respiratory distress, Respirations: normal, no use of accessory muscles, no retractions, labored breathing, is not present, Breath sounds: are clear throughout, no decreased breath sounds, no stridor, no wheezing. 17:05 Abdomen/GI: Inspection: abdomen appears normal, Bowel sounds: active, all quadrants, Palpation: abdomen is soft and non-tender, in all quadrants, rebound tenderness, is not appreciated, voluntary guarding, is not appreciated, involuntary guarding, is not appreciated. 17:05 Back: pain, is absent, ROM is normal. 17:05 Musculoskeletal/extremity: Extremities: grossly normal except: noted in the right hip: decreased ROM, deformity, pain, tenderness, ROM: limited passive range of motion due to pain, in the right hip, Pulses: noted to be 2+ in the right dorsalis pedis artery, Sensation intact. 17:05 Neuro: Orientation: to person, place \\T\\ time. Mentation: is normal. Vital Signs: 16:24 BP 165 / 64; Pulse 69; Resp 16; Temp 98.8(TE); Pulse Ox 99% on R/A; Weight 63.05 kg; ss 17:00 BP 177 / 75; Pulse 72; Resp 17; Pulse Ox 98% on R/A; kg 17:30 BP 159 / 70; Pulse 71; Resp 17; Pulse Ox 97% on R/A; kg 18:13 BP 123 / 70; Pulse 68; Resp 18; Pulse Ox 99% on R/A; kg 20:00 BP 89 / 65; Pulse 70; Resp 16; Pulse Ox 99% on R/A; kg 21:00 BP 94 / 72; Pulse 78; Resp 14; Pulse Ox 100% on R/A; kg MDM: 16:38 Patient medically screened. cp 16:59 Physician consultation: Moise Barry MD was called at 17:00, regarding patient's cp condition, left message on voicemail. 17:52 ED course: received message from Jesica that DR Barry will be unavailable for consult.cp 18:30 Data reviewed: vital signs, nurses notes, lab test result(s), EKG, radiologic studies, cp plain films. 18:30 Test interpretation: by ED physician or midlevel provider: ECG, plain radiologic cp studies. Counseling: I had a detailed discussion with the patient and/or guardian regarding: the historical points, exam findings, and any diagnostic results supporting the discharge/admit diagnosis. Physician consultation: Bayron Mckeon MD was called at 18:00, was contacted at 18:00, regarding consult, patient's condition, and will see patient tomorrow. 01/09 16:40 Order name: Basic Metabolic Panel; Complete Time: 18:11 01/09 18:11 Interpretation: Normal except: NA 126; CL 93; GLUC 124; BUN 21; GFR 68; CA 7.8. cp 01/09 16:40 Order name: CBC with Diff; Complete Time: 18:11 01/09 16:40 Order name: LFT's; Complete Time: 18:11 cp 01/09 16:40 Order name: Magnesium; Complete Time: 18:11 cp 01/09 16:40 Order name: NT PRO-BNP; Complete Time: 18:11 01/09 16:40 Order name: PT-INR; Complete Time: 18:11 01/09 16:40 Order name: Troponin (emerg Dept Use Only); Complete Time: 18:11 01/09 16:40 Order name: Urine Microscopic Only; Complete Time: 18:11 01/09 18:12 Interpretation: Normal except: UWBC 10-20; URBC 20-50; UBACT 20-50; SQEPI 5-10. 01/09 16:55 Order name: COVID-19 : Document "Date of Symptom Onset" if Symptomatic. 01/09 17:15 Order name: Urine Dipstick-Ancillary; Complete Time: 18:11 EDNC 01/09 17:51 Order name: Urine Culture [facility] 01/09 19:12 Order name: SARS-COV-2 RT PCR [facility] 01/10 05:16 Order name: CBC with Automated Diff [facility] 01/09 16:40 Order name: XRAY Chest (1 view); Complete Time: 19:02 01/09 19:02 Interpretation: Report review. 01/10 05:28 Order name: Comprehensive Metabolic Panel [facility] 01/10 05:28 Order name: Lipid Profile [facility] 01/10 05:28 Order name: T4 Free [facility] 01/10 05:28 Order name: Magnesium [facility] 01/10 05:28 Order name: Thyroid Stimulating Hormone [facility] 01/10 10:44 Order name: RAD [facility] 01/10 10:45 Order name: RAD [facility] 01/09 16:40 Order name: EKG; Complete Time: 16:40 01/09 16:40 Order name: Cardiac monitoring; Complete Time: 17:47 01/09 16:40 Order name: EKG - Nurse/Tech; Complete Time: 17:47 01/09 16:40 Order name: IV Saline Lock; Complete Time: 17:47 01/09 16:40 Order name: Labs collected and sent; Complete Time: 17:47 01/09 16:40 Order name: O2 Per Protocol; Complete Time: 17:47 01/09 16:40 Order name: O2 Sat Monitoring; Complete Time: 17:47 01/09 16:40 Order name: Urine Dipstick-Ancillary (obtain specimen); Complete Time: 17:47 cp EC:02 Rate is 71 beats/min. Rhythm is regular, Paced. DE interval is prolonged at 332 msec. cp QRS interval is prolonged at 184 msec. QT interval is prolonged. T waves are Inverted in leads aVL, aVR. Interpreted by me. Reviewed by me. Administered Medications: 17:47 Drug: Zofran (Ondansetron) 4 mg Route: IVP; Site: left antecubital; kg 19:36 Drug: Ativan (LORazepam) 0.5 mg Route: IVP; Site: left antecubital; kg 19:36 Drug: Ketorolac 15 mg Route: IVP; Site: left antecubital; kg 19:37 Drug: Rocephin (cefTRIAXone) 1 grams Route: IV; Rate: calculated rate; Site: left kg antecubital; Disposition Summary: 01/09/21 18:18 Hospitalization Ordered Hospitalization Status: Inpatient Admission cp Provider: Shahram Foy cp Condition: Stable cp Problem: new cp Symptoms: have improved cp Bed/Room Type: Standard cp Location: Telemetry/MedSurg (Inpatient)(01/10/21 10:08) em1 Room Assignment: 219(01/10/21 10:08) em1 Diagnosis - Displaced fracture of base of neck of right femur, initial encounter for closed cp fracture Forms: - Medication Reconciliation Form cp - SBAR form cp Signatures: Dispatcher [employer] EDMS Mike Pineda em1 Gayla Thomas RN RN ss Jon Gillis PA PA cp Luz Rockwell, DELMAR JACOBSEN Jackeline Blas RN RN kg Corrections: (The following items were deleted from the chart) 16:57 16:49 Hip Right 2 View+RAD.RAD.BRZ ordered. EDMS EDMS 16:57 16:49 Pelvis+RAD.RAD.BRZ ordered. EDMS EDMS 18:06 16:55 CORONAVIRUS ordered. EDMS EDMS 19:07 18:19 Aorta Ivc Iliacs Complete+US.RAD.BRZ ordered. EDMS EDMS 21:10 18:18 Telemetry/MedSurg (Inpatient) cp cg 21:10 18:18 cp cg 01/10 10:01/09 21:10 [facility] ER HOLD cg em1 01/10 10:01/09 21:10 ERHOLD- cg em1
--- NOTE | 2021-01-11 16:48 | ER ---
Nurse's Notes [facility] Name: Brittany Villarreal Age: 80 yrs Sex: Female : 1940 Arrival Date: 01/09/2021 Time: 16:23 Bed 28 Private MD: Diagnosis: Displaced fracture of base of neck of right femur, initial encounter for closed fracture Presentation: 01/09 16:24 Chief complaint: Patient's son or daughter states: Fell yesterday in the bathroom at a restrurante in [place]. Was seen at an ER there and told she fractured her R hip. Pt's ortho doctor is Dr. Barry, so family signed out AMA and drove here to be seen. Coronavirus screen: Client denies travel out of the [place] in the last 14 days. Ebola Screen: Patient denies exposure to infectious person. Patient denies travel to an Ebola-affected area in the 21 days before illness onset. Initial Sepsis Screen: Does the patient meet any 2 criteria? No. Patient's initial sepsis screen is negative. Does the patient have a suspected source of infection? No. Patient's initial sepsis screen is negative. Risk Assessment: Do you want to hurt yourself or someone else? Patient reports no desire to harm self or others. Onset of symptoms was January 08, 2021. 16:24 Method Of Arrival: Wheelchair ss 16:24 Acuity: EVERETTE 3 ss Historical: - Allergies: 16:26 No Known Allergies; ss - PMHx: 16:26 Hyperlipidemia; Hypertension; Thyroid problem; ss - Immunization history:: Adult Immunizations up to date. - Social history:: Smoking status: Patient denies any tobacco usage or history of. Screenin:34 Abuse screen: Denies threats or abuse. Denies injuries from another. Nutritional kg screening: No deficits noted. Tuberculosis screening: No symptoms or risk factors identified. Fall Risk Fall in past 12 months (25 points). Secondary diagnosis (15 points) impaired mobility, IV access (20 points). Ambulatory Aid- None/Bed Rest/Nurse Assist (0 pts). Gait- Impaired (20 pts.). Mental Status- Oriented to own ability (0 pts). Total Solorzano Fall Scale indicates No Risk (0-24 pts). Assessment: 17:27 General: Appears in no apparent distress. Behavior is calm, cooperative, appropriate kg for age. Pain: Denies pain. Neuro: No deficits noted. Cardiovascular: No deficits noted. Reports None Heart tones S1 S2 Pulses are palpable in right radial artery, right dorsalis pedis artery, left radial artery and left dorsalis pedis artery. Respiratory: No deficits noted. Reports shortness of breath at rest Airway is patent Respiratory effort is even, unlabored, relaxed, Respiratory pattern is regular, Breath sounds are clear bilaterally. GI: No deficits noted. : Parent/caregiver report the patient having Reyes placed in [place]. Musculoskeletal: Parent/caregiver report the patient having weakness in Right hip, Right leg Pt fell 7/24 and broke right hip. Pt was seen at other facilty and had imaging done to confirm break. Vital Signs: 16:24 BP 165 / 64; Pulse 69; Resp 16; Temp 98.8(TE); Pulse Ox 99% on R/A; Weight 63.05 kg; ss 17:00 BP 177 / 75; Pulse 72; Resp 17; Pulse Ox 98% on R/A; kg 17:30 BP 159 / 70; Pulse 71; Resp 17; Pulse Ox 97% on R/A; kg 18:13 BP 123 / 70; Pulse 68; Resp 18; Pulse Ox 99% on R/A; kg 20:00 BP 89 / 65; Pulse 70; Resp 16; Pulse Ox 99% on R/A; kg 21:00 BP 94 / 72; Pulse 78; Resp 14; Pulse Ox 100% on R/A; kg ED Course: 16:23 Patient arrived in ED. am2 16:26 Triage completed. ss 16:26 Arm band placed on right wrist. ss 16:28 Jon Gillis PA is PHCP. cp 16:28 Shahram King MD is Attending Physician. cp 16:40 Odilon Arriaga, DELMAR is Primary Nurse. jl7 17:04 Inserted saline lock: 20 gauge in left antecubital area, using aseptic technique. kg 17:20 XRAY Chest (1 view) In Process Unspecified. EDMS 17:26 Jackeline Blas, DELMAR is Primary Nurse. kg 17:31 Reyes placed EXERCISE PLANNER. kg 17:35 Patient has correct armband on for positive identification. Allergy band placed. Fall kg risk band placed. Placed in gown. Bed in low position. Call light in reach. Side rails up X2. Adult w/ patient. 17:43 Dr. Barry returned Jon Mejia's page and says he is familiar with the patient but is eb unable to help at this time. He is unavailable. 17:46 Orth[address] connected Dr. Mckeon with Jon Mejia for patient consultation. eb 17:47 COVID-19 : Document "Date of Symptom Onset" if Symptomatic. Sent. kg 18:13 Shahram Foy MD is Hospitalizing Provider. cp 21:23 Report given to Luis JACOBSEN ER hold. kg 21:23 No provider procedures requiring assistance completed. Converted IV to saline lock on kg right antecubital area. Administered Medications: 17:47 Drug: Zofran (Ondansetron) 4 mg Route: IVP; Site: left antecubital; kg 19:36 Drug: Ativan (LORazepam) 0.5 mg Route: IVP; Site: left antecubital; kg 19:36 Drug: Ketorolac 15 mg Route: IVP; Site: left antecubital; kg 19:37 Drug: Rocephin (cefTRIAXone) 1 grams Route: IV; Rate: calculated rate; Site: left kg antecubital; Outcome: 18:18 Decision to Hospitalize by Provider. cp 21:23 Admitted to ER Hold. Please see [facility] for further documentation. kg 21:23 Condition: stable 21:23 Instructed on the need for admit. 01/10 17:17 Patient left the ED. ld1 Signatures: Dispatcher [employer] EDMS Gayla Thomas RN RN Jon Gillis PA PA cp Odilon Arriaga RN RN jl7 Francie Perea Elizabeth Nida Sanford RN RN ld1 Jackeline Blas RN RN kg
[2021-01-11] MEDS ORDERED: TRANEXAMIC ACID 1,000 MG in NA CHLORIDE 0.9% 50 ML IV ONE ×4 (17:00)
[2021-01-11] MEDS ORDERED: MORPHINE 4 MG/ML SYR ONE (17:37)
[2021-01-11] MEDS ORDERED: SCOPOLAMINE HYDROBROMIDE PATCH TD ONE (17:45)
[2021-01-11] MEDS ORDERED: GLYCOPYRROLATE 0.2 MG/ML SYR ONE (17:56)
[2021-01-11] MEDS ORDERED: LIDOCAINE 1% MPF 5 ML VIAL ONE (17:56)
[2021-01-11] MEDS ORDERED: MIDAZOLAM HCL 2 MG/2 ML INJ ONE (17:56)
[2021-01-11] MEDS ORDERED: propofoL 200 MG/20 ML VIAL IV ONE ×2 (17:56→20:30)
[2021-01-11] MEDS ORDERED: FENTANYL CITR 100 MCG/2 ML ONE (17:56)
[2021-01-11] MEDS ORDERED: MORPHINE 10 MG/ML VIAL ONE (17:57)
[2021-01-11] MEDS ORDERED: NEOSTIGMINE 1 MG/ML -5 ML ONE (17:57)
[2021-01-11] MEDS ORDERED: ROCURONIUM 50 MG/5 ML VIAL IV ONE (17:58)
[2021-01-11] MEDS ORDERED: ONDANSETRON 4 MG/2 ML VIAL ONE (17:58)
[2021-01-11] MEDS ORDERED: KETOROLAC 30 MG/ML INJ ONE (17:58)
[2021-01-11] MEDS ORDERED: CEFAZOLIN SODIUM 1 GM/VIAL ONE (18:23)
[2021-01-11] MEDS ORDERED: NA CHLORIDE 0.9% 1,000 ML ONE (18:48)
[2021-01-11] MEDS ORDERED: Phenylephrine HCl 10 MG/ML 1 ML VIAL ONE (19:11)
[2021-01-11] MEDS: METOPROLOL TARTRATE 5 MG/5 ML INJ IV ONE ×2 (19:35→19:54)
--- NOTE | 2021-01-11 19:53 | PN ---
Date of Progress Note: 01/11/2021 The patient was seen in the holding area where I discussed with the family and the patient the proced ure we planned for bipolar hip arthroplasty. They understand things as presented and wishes to proce ed. The patient was taken to the operating room. General anesthesia was easily obtained by the [facility]ia staff. She was then transferred to the operative bed. Anesthesia had some concerns regarding end-tidal CO2 as well as heart rate and blood pressure. Please refer to his notes and opinion wendy mejia that; however, after consideration, Anesthesia says they do not feel comfortable proceeding. Th erefore, there was no incision made and case was canceled without the patient being positioned. He w ill continue her care at this point and we will have to see when we could possibly proceed with surge ry or if we needed to try other avenues. /SALVADOR Voice ID: [id number] Report ID: [id number]
[2021-01-11] MEDS: propofoL 1,000 MG/100 ML VIAL IV PRN (20:20)
--- NOTE | 2021-01-11 20:25 | RAD REPORT ---
EXAM DESCRIPTION: RAD - Chest Single View - 01/11/2021 8:19 pm CLINICAL HISTORY: ET placement Chest pain. COMPARISON: Chest Single View dated 01/09/2021; Chest Single View dated 02/09/2019 FINDINGS: Portable technique limits examination quality. The lungs are grossly clear. Tip of the endotracheal tube is the level of the mid aortic arch. Small pleural effusion likely present.The heart size is normal with dual lead pacer device present.
[2021-01-11] MEDS ORDERED: propofoL 1,000 MG/100 ML VIAL IV ONE (20:52)
[2021-01-11] MEDS: PEG OPTH SCH (21:00)
[2021-01-11] MEDS: FAMOTIDINE 20 MG/2 ML VIAL IV SCH (21:00)
[2021-01-11] MEDS: PROPYLENE GLYCOL OPTH SCH (21:00)
[2021-01-11 21:43] LABS: Absolute Lymphocytes (CBC) 0.9 K/uL (0.7-4.9); Basophils % 0.5 % (0-1.3); Hematocrit 30.5 % (36.0-45.0); Lymphocytes % 8.2 % (15.3-44.8); MPV 10.2 fL (7.6-11.3); RBC Red Blood Cell Count 3.22 M/uL (3.86-4.86)
[2021-01-11 21:57] LABS: Albumin 2.6 g/dL (3.4-5.0); Bilirubin Total 0.4 mg/dL (0.2-1.0); Magnesium 1.8 mg/dL (1.8-2.4); Potassium 3.9 mmol/L (3.5-5.1); Protein, Total 6.5 g/dL (6.4-8.2); Troponin I 0.03 ng/mL (0.0-0.045)
[2021-01-11 22:04] LABS: Arterial Blood Carboxyhemoglob 0.8 % (0-1.5); Blood Gas Oxyhemoglobin 97.3 % (94-97); Blood O2 Saturation 99.1 % (92-98.5)
[2021-01-11] MEDS ORDERED: HYDROMORPHONE HCL 1 MG/ML INJ ONE (23:07)
[2021-01-12 05:01] LABS: Absolute Lymphocytes (CBC) 1.8 K/uL (0.7-4.9); Basophils % 0.4 % (0-1.3); Hematocrit 30.9 % (36.0-45.0); Lymphocytes % 16.2 % (15.3-44.8); MPV 10.1 fL (7.6-11.3); RBC Red Blood Cell Count 3.24 M/uL (3.86-4.86)
[2021-01-12 05:12] LABS: Albumin 2.7 g/dL (3.4-5.0); Bilirubin Total 0.5 mg/dL (0.2-1.0); Magnesium 1.9 mg/dL (1.8-2.4); Potassium 4.2 mmol/L (3.5-5.1); Protein, Total 6.5 g/dL (6.4-8.2)
[2021-01-12] MEDS: LEVOTHYROXINE SOD 0.088 MG TAB PO SCH (07:23)
[2021-01-12] MEDS: CALCIUM CARB 500MG/VIT D 200 IU TAB PO SCH (07:23)
[2021-01-12] MEDS: hydroCHLOROthiazide 12.5 MG CAP PO SCH (07:23)
[2021-01-12] MEDS: ROSUVASTATIN 10 MG TAB PO SCH (07:23)
[2021-01-12] MEDS: VALSARTAN 80 MG TAB PO SCH (07:23)
[2021-01-12] MEDS: NA CHLORIDE 0.9% 1,000 ML IV SCH ×3 (08:00→20:19)
[2021-01-12] MEDS: propofoL 1,000 MG/100 ML VIAL IV PRN ×2 (08:03→17:18)
[2021-01-12] MEDS: FAMOTIDINE 20 MG/2 ML VIAL IV SCH ×2 (08:03→20:39)
[2021-01-12] MEDS ORDERED: FENTANYL CITR 100 MCG/2 ML ONE (08:10)
[2021-01-12] MEDS ORDERED: propofoL 1,000 MG/100 ML VIAL IV ONE ×2 (08:11→17:38)
[2021-01-12] MEDS ORDERED: FAMOTIDINE 20 MG/2 ML VIAL IV ONE ×2 (08:11→19:39)
[2021-01-12] MEDS: FENTANYL CITR 100 MCG/2 ML IV PRN (08:16)
[2021-01-12] MEDS: PROPYLENE GLYCOL OPTH SCH ×2 (08:17→20:40)
[2021-01-12] MEDS: PEG OPTH SCH ×2 (08:17→20:40)
--- NOTE | 2021-01-12 08:17 | P.PN ---
Subjective Date of Service: 01/10/21 Pain is controlled. Patient is scheduled for surgery. Cardiology is seen the patient and echocardiogram has been ordered. Patient be scheduled for surgery over the next 24 hr. Spoke to patient orthopedic who was not available for surgery at this time. Review of Systems 10-point ROS is otherwise unremarkable Physical Examination - Vital Signs Temperature: 97.6 F Blood Pressure: 113/53 Pulse: 69 Respirations: 14 Pulse Ox (%): 100 - Physical Exam General: Alert, In no apparent distress, Oriented x3 Respiratory: Clear to auscultation bilaterally, Normal air movement Cardiovascular: Regular rate/rhythm, Normal S1 S2, Systolic murmur Gastrointestinal: Normal bowel sounds, Soft and benign, Non-distended, No tenderness Musculoskeletal: No clubbing, No swelling, No tenderness Neurological: Sensation intact, Cranial nerves 3-12 intact Lymphatics: No axilla or inguinal lymphadenopathy - Studies Microbiology Data (last 24 hrs): 01/09/21 17:09 Clean Catch Urine Beverly Count - Final No growth. 01/09/21 17:09 Clean Catch Urine - Final No growth. Medications List Reviewed: Yes Assessment & Plan - Problems (Diagnosis) (1) History of cardiac defibrillator placement Current Visit: Yes Status: Acute (2) Cardiomyopathy Current Visit: Yes Status: Acute Qualifiers: Cardiomyopathy type: dilated Qualified Code(s): I42.0 - Dilated cardiomyopathy (3) HTN (hypertension) Current Visit: Yes Status: Acute (4) Dyslipidemia Current Visit: Yes Status: Acute - Plan Plan: 1. Continue with blood pressure control 2. Cardiology clearance with echocardiogram 3. Will try to reach out to her chief of service Dr. Barfield compartment also get some information 4. Pain control 5. Physical therapy and rehab evaluation postsurgery Discharge Plan: Home - Advance Directives Does patient have a Living Will: No Does patient have a Durable POA for Healthcare: No - Code Status/Comfort Care Code Status Assessed: Yes Code Status: Full Code Critical Care: No Time Spent Managing PTS Care (In Minutes): 35
[2021-01-12] MEDS ORDERED: NA CHLORIDE 0.9% 1,000 ML ONE ×2 (08:22→19:39)
--- NOTE | 2021-01-12 08:43 | P.PN ---
Date of Service: 01/11/21 Subjective Spoke to daughter. Surgery scheduled for later today. Echocardiogram within normal limits. Cardiology has evaluated patient. Review of Systems 10-point ROS is otherwise unremarkable Physical Examination - Vital Signs Reviewed - Physical Exam General: Alert, In no apparent distress, Oriented x3 Respiratory: Clear to auscultation bilaterally, Normal air movement Cardiovascular: Regular rate/rhythm, Normal S1 S2, Systolic murmur Gastrointestinal: Normal bowel sounds, Soft and benign, Non-distended, No tenderness Musculoskeletal: No clubbing, No swelling, No tenderness Neurological: Sensation intact, Cranial nerves 3-12 intact Assessment & Plan - Problems (Diagnosis) (1) History of cardiac defibrillator placement Current Visit: Yes Status: Acute (2) Cardiomyopathy Current Visit: Yes Status: Acute Qualifiers: Cardiomyopathy type: dilated Qualified Code(s): I42.0 - Dilated cardiomyopathy (3) HTN (hypertension) Current Visit: Yes Status: Acute (4) Dyslipidemia Current Visit: Yes Status: Acute - Plan Plan: Continue with plan of care as mentioned below 1. Continue with blood pressure control 2. Cardiology clearance with echocardiogram- ejection fraction normal with no significant wall motion abnormalities. 3. Will try to reach out to her certified nutritionist Dr. Mace also get some information 4. Pain control 5. Physical therapy and rehab evaluation postsurgery
[2021-01-12] MEDS: TIMOLOL MALEATE 0.5% OPTH 5 ML BTL OPTH SCH (09:00)
[2021-01-12] MEDS: LEVOTHYROXINE SODIUM 100 MCG VIAL IV SCH (10:58)
[2021-01-12] MEDS ORDERED: CALCIUM GLUC 10% INJ 4.65 MEQ in NA CHLORIDE 0.9% 100 ML IV ONE (11:00)
[2021-01-12] MEDS ORDERED: INSULIN -REGULAR HUMAN 50 UNIT/0.5 ML ML ONE (12:47)
[2021-01-12] MEDS: METOPROLOL TARTRATE 5 MG/5 ML INJ IV SCH ×2 (13:00→17:18)
[2021-01-12] MEDS ORDERED: METOPROLOL TARTRATE 5 MG/5 ML INJ IV ONE ×3 (13:21→19:39)
[2021-01-12] MEDS ORDERED: HALOPERIDOL LACT 5 MG/ML INJ IV PRN (14:55)
[2021-01-12] MEDS ORDERED: MIDAZOLAM HCL 2 MG/2 ML INJ IV PRN (14:55)
[2021-01-12] MEDS: LORazepam 2 MG/ML VIAL IV PRN ×2 (15:30→17:18)
--- NOTE | 2021-01-12 17:05 | P.CNS ---
Date of Consult: 01/12/21 (Daughter agreed to TV) Reason for Consult: resp failure Primary Care Provider: Unknown Chief Complaint: Right hip fracture History of Present Illness: Pt is age 81 evaluated by me for resp failure/ Developed hypotension and was intubated/ DAughter at bedside/ No prior Hxof pulmonary complaints/ HAs pacemaker/ Fell and fractured hip Allergies No Known Allergies Allergy (Verified 01/09/21 23:10) Home Medications: Aspirin [Lo-Dose Aspirin EC] 81 mg PO DAILY 01/09/21 Calcium Carbonate/Vitamin D3 [Calcium 600 mg-D3 20 Mcg Cplt] 1 each PO DAILY 01/09/21 Levothyroxine [Synthroid] 88 mcg PO DAILY 01/09/21 Olmesartan/Hydrochlorothiazide [Olmesartan-Hctz 20-12.5 mg Tab] 1 each PO DAILY 01/09/21 Propylene Glycol/Peg 400 [Systane Ultra 0.3-0.4% Eye Drp] 2 drops RIGHT EYE BID 01/09/21 Rosuvastatin Calcium 20 mg PO DAILY 01/09/21 Timolol 0.5% Opth [Timoptic 0.5% Opth*] 1 drop OPTH DAILY 01/09/21 - Past Medical/Surgical History Diabetic: No -: Hypertension -: Hyperlipidemia -: Hypothyroidism -: Pacemaker -: Right ear, tonsillectomy, right knee arthroscopy, colonic polyp removal -: Thyroidectomy, cataract surgery Psychosocial/ Personal History: Patient lives at home with her daughter and is retired - Family History Father Medical History: Heart disease Mother Medical History: Heart disease Brother Medical History: Heart disease Sister Medical History: Heart disease - Social History Alcohol use: No CD- Drugs: No Caffeine use: No Place of Residence: Home Review of Systems is unable to be obtained Physical Examination Temp Pulse Resp BP Pulse Ox 97.7 F 60 14 153/57 H 100 01/12/21 16:00 01/12/21 16:00 01/12/21 16:00 01/12/21 16:00 01/12/21 16:00 General: Unresponsive - Problems (1) Respiratory failure Current Visit: Yes Status: Acute Plan: PT AW fracture of hip Intubated/ condition stabel. NOrmal LVEF, CXRy clear, hemodynamically stalbe/ Labs reviewed/ MnimalO2 / cleared for hip repair Qualifiers: Chronicity: acute
[2021-01-12] MEDS ORDERED: MIDAZOLAM HCL 2 MG/2 ML INJ ONE (17:10)
[2021-01-12] MEDS ORDERED: LORazepam 2 MG/ML VIAL ONE (17:38)
--- NOTE | 2021-01-12 18:39 | P.PN ---
Date of Service: 01/11/21 Subjective Patient's surgery was canceled. Patient on the ventilator. Patient had gone into an SVT rhythm. Continue on low-dose beta-eli therapy at this time and control heart rate and blood pressure. Monitor in the ICU and Cardiology and Pulmonary consultation. Patient remains intubated and will be transfer to the ICU with vent management Review of Systems 10-point ROS is otherwise unremarkable Physical Examination - Vital Signs Reviewed - Physical Exam General: Intubated and sedated Respiratory: Clear to auscultation bilaterally, Normal air movement Cardiovascular: Regular rate/rhythm, Normal S1 S2, Systolic murmur Gastrointestinal: Normal bowel sounds, Soft and benign, Non-distended, No tenderness Musculoskeletal: No clubbing, No swelling, pain on movement of the right leg Neurological: Sensation intact, Cranial nerves 3-12 intact Assessment & Plan - Problems (Diagnosis) - Problems (Diagnosis) (1) History of sick sinus syndrome with pacemaker placement Current Visit: Yes Status: Acute (2) History of SVT rhythm Current Visit: Yes Status: Acute Qualifiers: Cardiomyopathy type: dilated Qualified Code(s): I42.0 - Dilated cardiomyopathy (3) HTN (hypertension) Current Visit: Yes Status: Acute (4) Dyslipidemia Current Visit: Yes Status: Acute (5) Right hip fracture Current Visit: Yes Status: Acute - Plan Plan: 1. Continue with mechanical ventilation 2. Continue with blood pressure control and control heart rate with beta-eli therapy 3. Appreciate Cardiology input 4. Pain control 5. Physical therapy and rehab evaluation postsurgery Discharge Plan: Rehabilitation - Advance Directives Does patient have a Living Will: No Does patient have a Durable POA for Healthcare: No - Code Status/Comfort Care Code Status Assessed: Yes Code Status: Full Code Critical Care: Yes Time Spent Managing PTS Care (In Minutes): 40
--- NOTE | 2021-01-12 18:44 | P.PN ---
Date of Service: 01/12/21 Subjective Spoke to patient's assistant film editor and patient has had numerous workup including echocardiogram and a Holter monitor placement. Patient did not want a stress test so that was not done. Patient had pacemaker placed secondary to sick sinus syndrome. Patient Holter monitor was done about a month ago and it showed multiple episodes of an SVT type rhythm which lasted for 3-5 seconds. Otherwise, no other abnormalities. Echocardiogram has been completely normal. Patient has a questionable history of any aneurism but is not that significant. Patient is a low to moderate risk for cardiopulmonary complications but mainly because of FH. Cardiac status has been stable except for the SVT rhythms that patient experienced last night and her cardiac output decreased. Spoke with anesthesiology and we will wait Overnite and see how patient does in the morning Review of Systems 10-point ROS is otherwise unremarkable Physical Examination - Vital Signs Reviewed - Physical Exam General: Intubated and sedated Respiratory: Clear to auscultation bilaterally, Normal air movement Cardiovascular: Regular rate/rhythm, Normal S1 S2, Systolic murmur Gastrointestinal: Normal bowel sounds, Soft and benign, Non-distended, No tenderness Musculoskeletal: No clubbing, No swelling, tenderness on any movement of that lower extremity Neurological: Sensation intact, Cranial nerves 3-12 intact Assessment & Plan - Problems (Diagnosis) (1) History of sick sinus syndrome with pacemaker placement Current Visit: Yes Status: Acute (2) History of SVT rhythm Current Visit: Yes Status: Acute Qualifiers: Cardiomyopathy type: dilated Qualified Code(s): I42.0 - Dilated cardiomyopathy (3) HTN (hypertension) Current Visit: Yes Status: Acute (4) Dyslipidemia Current Visit: Yes Status: Acute (5) Right hip fracture Current Visit: Yes Status: Acute - Plan Plan: Continue with plan of care as mentioned below 1. Continue with blood pressure and heart rate control with beta-eli therapy 2. Spoke with our assistant film editor and reviewed echocardiogram with completely normal ejection fraction. Also a reached out to patient's assistant film editor Dr. Mace, and patient does not have any significant cardiac abnormality except for the sick sinus syndrome. Patient had some episodes of an SVT rhythm on Holter monitor. However, this should not prevent surgical intervention. Beta- eli therapy and control heart rate and blood pressure prior to surgery. 3. Continue with pain control and anesthesia for management of mechanical ventilation 4. Plan to extubate after surgery 5. Physical therapy and rehab evaluation postsurgery 6. GI and DVT prophylaxis
[2021-01-12] MEDS ORDERED: HYDRALAZINE HCL 20 MG/ML VIAL ONE (21:05)
[2021-01-13] MEDS: METOPROLOL TARTRATE 5 MG/5 ML INJ IV SCH ×4 (00:09→16:25)
[2021-01-13] MEDS: HYDRALAZINE HCL 20 MG/ML VIAL IV PRN (02:17)
[2021-01-13] MEDS: FENTANYL CITR 100 MCG/2 ML IV PRN ×3 (04:21→11:13)
[2021-01-13] MEDS: propofoL 1,000 MG/100 ML VIAL IV PRN ×2 (04:23→14:47)
[2021-01-13] MEDS ORDERED: FENTANYL CITR 100 MCG/2 ML ONE ×4 (04:40→15:55)
[2021-01-13] MEDS ORDERED: propofoL 1,000 MG/100 ML VIAL IV ONE ×2 (04:43→15:07)
[2021-01-13] MEDS: LEVOTHYROXINE SODIUM 100 MCG VIAL IV SCH (05:54)
[2021-01-13] MEDS ORDERED: NA CHLORIDE 0.9% 1,000 ML ONE ×3 (06:00→20:08)
[2021-01-13 07:04] LABS: Hematocrit 30.2 % (36.0-45.0); MPV 9.2 fL (7.6-11.3); RBC Red Blood Cell Count 3.19 M/uL (3.86-4.86)
[2021-01-13 07:17] LABS: BUN Blood Urea Nitrogen 16 mg/dL (7-18); Bicarbonate 20 mmol/L (21-32); Glucose Level 99 mg/dL (74-106); Phosphorus 4.1 mg/dL (2.5-4.9); Potassium 3.7 mmol/L (3.5-5.1); Sodium Level 139 mmol/L (136-145)
[2021-01-13] MEDS: VALSARTAN 80 MG TAB PO SCH (07:44)
[2021-01-13] MEDS: ROSUVASTATIN 10 MG TAB PO SCH (07:44)
[2021-01-13] MEDS: hydroCHLOROthiazide 12.5 MG CAP PO SCH (07:44)
[2021-01-13] MEDS: PEG OPTH SCH ×2 (07:45→20:17)
[2021-01-13] MEDS: PROPYLENE GLYCOL OPTH SCH ×2 (07:45→20:17)
[2021-01-13] MEDS: TIMOLOL MALEATE 0.5% OPTH 5 ML BTL OPTH SCH (07:45)
[2021-01-13] MEDS: CALCIUM CARB 500MG/VIT D 200 IU TAB PO SCH (07:45)
[2021-01-13] MEDS ORDERED: FAMOTIDINE 20 MG/2 ML VIAL IV ONE ×2 (08:12→20:44)
[2021-01-13] MEDS: FAMOTIDINE 20 MG/2 ML VIAL IV SCH ×2 (08:14→20:22)
[2021-01-13] MEDS: NA CHLORIDE 0.9% 1,000 ML IV SCH ×3 (09:55→19:46)
--- NOTE | 2021-01-13 11:10 | CON ---
Date of Consultation: 01/10/2021 Reason For Consultation: Cardiac clearance for right hip surgery. History Of Present Illness: Ms. Aguayo is an 81-year-old woman who has had no previous coronary dante ry disease, had history of pacemaker, hypertension, dyslipidemia, hypothyroidism. She has not had an y cardiac symptoms recently with the right hip fracture. There is a plan to have her due surgery by Dr. Mckeon. She denied any chest pain, nausea, vomiting, diaphoresis, PND, orthopnea, pedal edema , palpitations, or syncope. DICTATION ENDS HERE. CHRISTOPHER/SALVADOR Voice ID: [id number] Report ID: [id number]
--- NOTE | 2021-01-13 11:29 | CON ---
Date of Consultation: 01/10/2021 Reason For Consultation: Cardiac clearance. History Of Present Illness: The patient is an 81-year-old who has a history of hypertension, dyslipi demia, pacemaker, hypothyroidism, family history of heart disease. Came in with a right hip fracture without any cardiac symptoms. Denied any chest pain, nausea, vomiting, diaphoresis, PND, orthopnea, pedal edema, palpitations, or syncope. Denied any fever or chills. Past Medical History: As stated above. Allergies: NONE. Review of Systems: Negative. Social History: Negative. Family History: Negative. Medications: At home include aspirin, Synthroid, olmesartan with hydrochlorothiazide, and Crestor. Physical Examination: Vital Signs: Stable. She was afebrile. HEENT: Negative. Neck: Supple without any lymphadenopathy, JVD, thyromegaly, or bruit. Cardiac: Revealed a regular rhythm and rate. No murmurs, gallops, or rubs. Abdomen: Benign. Extremities: Revealed no clubbing, cyanosis, or edema. Diagnostic Data: Chest x-ray was normal. She already had an echocardiogram before I saw her and sudheer t was absolutely normal with normal ejection fraction, mild tricuspid regurgitation, normal right domi tricular systolic pressure. She had a hip fracture on her x-rays. Impression And Plan: This is a patient with history of pacemaker, hypertension, dyslipidemia. No ca rdiac symptoms. Pacemaker appeared to be functioning appropriately based on the EKG. She had a norm al echocardiogram. I think she is at low risk for perioperative mortality. I will be available for question if the need arises. She has an elevated BNP, which is nonspecific. Her sodium was low prob ably secondary to the combination of olmesartan and hydrochlorothiazide. It may be reasonable for he r down the road to actually hold the hydrochlorothiazide and discontinue olmesartan. Continue her Cr estor, aspirin and thyroid and I will be available for questions if the need arises. CHRISTOPHER/SALVADOR Voice ID: [id number] Report ID: [id number]
[2021-01-13] MEDS ORDERED: METOPROLOL TARTRATE 5 MG/5 ML INJ IV ONE ×3 (11:34→22:45)
[2021-01-13] MEDS ORDERED: CALCIUM GLUC 10% INJ 4.65 MEQ in NA CHLORIDE 0.9% 100 ML IV ONE (13:11)
[2021-01-13] MEDS ORDERED: MIDAZOLAM HCL 2 MG/2 ML INJ ONE (15:56)
[2021-01-13] MEDS ORDERED: KETOROLAC 30 MG/ML INJ ONE (15:57)
[2021-01-13] MEDS ORDERED: MORPHINE 10 MG/ML VIAL ONE (15:57)
[2021-01-13] MEDS ORDERED: ONDANSETRON 4 MG/2 ML VIAL ONE (15:57)
[2021-01-13] MEDS ORDERED: dexAMETHasone 10 MG/ML VIAL ONE (15:57)
[2021-01-13] MEDS ORDERED: Phenylephrine HCl 10 MG/ML 1 ML VIAL ONE (15:58)
[2021-01-13] MEDS ORDERED: ROCURONIUM 50 MG/5 ML VIAL IV ONE ×2 (17:02→19:00)
[2021-01-13] MEDS ORDERED: propofoL 200 MG/20 ML VIAL IV ONE (17:25)
[2021-01-13] MEDS ORDERED: CEFAZOLIN/SWI 1gm 1 GM/10 ML SYR ONE (17:30)
[2021-01-13] MEDS ORDERED: TRANEXAMIC ACID 1,000 MG in NA CHLORIDE 0.9% 50 ML IV ONE ×4 (18:00)
--- NOTE | 2021-01-13 19:09 | P.BOP ---
Preoperative diagnosis: right femoral neck fracture Postoperative diagnosis: same Primary procedure: right bipolar hemiarthoplasty Estimated blood loss: 150 Anesthesia: General Transferred to: Recovery Room
[2021-01-13] MEDS ORDERED: ALBUMIN HUM 5% 0 ML IV ONE (19:16)
--- NOTE | 2021-01-13 19:44 | OP ---
Date of Procedure: 01/13/2021 Surgeon: Bayron Mckeon MD Preoperative Diagnosis: Right femoral neck fracture, which was displaced. Postoperative Diagnosis: Right femoral neck fracture, which was displaced. Procedure: Right hip hemiarthroplasty using the [place] bipolar system from [employer]. Estimated Blood Loss: 150 mL. Complications: There were no complications. Pathology Specimen: No pathology specimen sent other than the head. Indication For Operation: Ms. Dede Villarreal approximately 1 week ago fell injuring her right hip . She was seen at an outside facility, but did not have surgery there and came to our facility. She was then admitted under the care of the hospitalist. Plan was for bipolar hemiarthroplasty to be do ne on Sunday. Unfortunately, on induction, her blood pressure dropped and the case was canceled. S he has been monitored in the ICU since that time and was deemed by the hospital's anesthesia and the engineering associate as well as cardiology to be fit now for a hemiarthroplasty. Risks, benefits, and alter natives have previously been discussed with the patient and family. They stated they understand as mari matute presented and wishes to proceed. Description Of Procedure: The patient was taken to the operating operative room. She is already int ubated. She was then rolled left side down with bony prominences being checked by Anesthesia with an axillary roll being placed. Right lower extremity was prepped and draped in the usual fashion proce ana. Following this, a standard posterolateral incision was then taken down carefully through skin only. Meticulous hemostasis being maintained using Bovie electrocautery. This was taken down to the region of the fascia. A small stab wound was made in the fascia and the gluteal tendon was palpated . This small stab wound was then taken up to near the tip of the greater trochanter and then curved posterior as we encountered the gluteus jessie muscle. Gluteus jessie was then spread using finger pressure. The sciatic nerve was identified and protected and Charnley was used to retract the fasci a. There was found to be a great deal of tenacious scarred and bursal tissue, which was then careful ly removed using Bovie and pickups. The external rotators and capsule were then removed from the pos terior aspect of the femur and tagged for later repair. A standard neck cut was then made using the saw. Bony fragments of the neck were then removed using a rongeur. The head itself was removed and sized using ring gauges to a size 49. The acetabulum was cleared of any soft tissue or bony fragment s and the canal-finding reamer was then used followed by the box liner, followed by sequentially bro aching to a size 0. It is possible we could have gotten a larger size down; however, given the patie nt's bone quality as well as age and demand, decision was made not to try to put the largest stem pos sible. Therefore, we decided to stop this and the canal was then copiously irrigated using a jet lav age. The bone plug was placed to appropriate depth and the [place] stem was then placed at appropriat e depth and held in place as the cement hardened. It was then trialed with a +4. This appeared to h ave a good fit and no shock, it does go to full extension. It was then trialed with the 0, 0 appeare d to be a little looser with a very slight amount of Shuck. Given the patient's age, decision was ma de to go with a +4, which was then gently tapped in place. It was then reduced. It was felt to be s table to full flexion, full adduction, and internal rotation to at least 45 degrees. The wound was c opiously irrigated and the external rotators were then repaired back to the greater trochanter via loki ne tunnels. They were then again irrigated and the fascia was repaired in a watertight fashion using heavy Vicryl sutures. It was again irrigated and the skin was closed using Vicryl sutures followed by alexus. The patient was then placed in Aquacel dressing and then taken from the operating room i n good condition. /MODL Voice ID: [id number] Report ID: [id number]
[2021-01-13] MEDS ORDERED: TRANEXAMIC ACID 1,000 MG/10 ML VIAL IV ONE (20:23)
[2021-01-13] MEDS ORDERED: NA CHLORIDE 0.9% 50 ML ONE (20:33)
[2021-01-14] MEDS: LEVOTHYROXINE SODIUM 100 MCG VIAL IV SCH (05:37)
[2021-01-14 05:40] LABS: Absolute Lymphocytes (CBC) 0.4 K/uL (0.7-4.9); Basophils % 0.2 % (0-1.3); Hematocrit 28.2 % (36.0-45.0); Lymphocytes % 5.8 % (15.3-44.8); MPV 9.9 fL (7.6-11.3); RBC Red Blood Cell Count 2.96 M/uL (3.86-4.86)
[2021-01-14 05:44] LABS: Potassium 4.2 mmol/L (3.5-5.1)
[2021-01-14] MEDS: METOPROLOL TARTRATE 5 MG/5 ML INJ IV SCH ×3 (06:00→10:13)
[2021-01-14] MEDS: NA CHLORIDE 0.9% 1,000 ML IV SCH (06:34)
[2021-01-14] MEDS ORDERED: CALCIUM GLUC 10% INJ 9.3 MEQ in NA CHLORIDE 0.9% 100 ML IV ONE (06:40)
--- NOTE | 2021-01-14 06:44 | P.PN ---
Date of Service: 01/13/21 Subjective Doing well. Anticipate extubation after surgery. Hopefully we can transfer to general medical floor in the morning. Review of Systems 10-point ROS is otherwise unremarkable Physical Examination - Vital Signs Reviewed - Physical Exam General: Intubated and sedated Respiratory: Clear to auscultation bilaterally, Normal air movement Cardiovascular: Regular rate/rhythm, Normal S1 S2, Systolic murmur Gastrointestinal: Normal bowel sounds, Soft and benign, Non-distended, No tenderness Musculoskeletal: No clubbing, No swelling, pain on movement of the right leg Neurological: Sensation intact, Cranial nerves 3-12 intact Assessment & Plan - Problems (Diagnosis) - Problems (Diagnosis) (1) History of sick sinus syndrome with pacemaker placement Current Visit: Yes Status: Acute (2) History of SVT rhythm Current Visit: Yes Status: Acute Qualifiers: Cardiomyopathy type: dilated Qualified Code(s): I42.0 - Dilated cardiomyopathy (3) HTN (hypertension) Current Visit: Yes Status: Acute (4) Dyslipidemia Current Visit: Yes Status: Acute (5) Right hip fracture Current Visit: Yes Status: Acute - Plan Plan: Continue with plan of care as mentioned below 1. Continue with mechanical ventilation 2. Continue with blood pressure control and control heart rate with beta-eli therapy 3. Appreciate Cardiology input 4. Pain control 5. Plan for surgery later today 6. Anticipate extubation after surgery and transfer to the general medical floor 7. Physical therapy and rehab evaluation postsurgery Discharge Plan: Rehabilitation - Advance Directives Does patient have a Living Will: No Does patient have a Durable POA for Healthcare: No - Code Status/Comfort Care Code Status Assessed: Yes Code Status: Full Code Critical Care: Yes Time Spent Managing PTS Care (In Minutes): 35
[2021-01-14] MEDS ORDERED: NA CHLORIDE 0.9% 1,000 ML ONE (06:53)
[2021-01-14 08:14] LABS: Blood Morphology Comment NOT SEEN (NOT SEEN); Platelet Estimate ADEQ
[2021-01-14] MEDS: TIMOLOL MALEATE 0.5% OPTH 5 ML BTL OPTH SCH (09:00)
[2021-01-14] MEDS: PROPYLENE GLYCOL OPTH SCH ×2 (09:00→20:21)
[2021-01-14] MEDS: PEG OPTH SCH ×2 (09:00→20:21)
[2021-01-14] MEDS: hydroCHLOROthiazide 12.5 MG CAP PO SCH (09:00)
[2021-01-14] MEDS: ROSUVASTATIN 10 MG TAB PO SCH (09:00)
[2021-01-14] MEDS: VALSARTAN 80 MG TAB PO SCH (09:00)
[2021-01-14] MEDS: ENOXAPARIN 40 MG/0.4 ML SQ SCH (10:12)
[2021-01-14] MEDS: METOPROLOL TAR 50 MG TAB PO SCH ×2 (10:13→20:18)
[2021-01-14] MEDS: FAMOTIDINE 20 MG/2 ML VIAL IV SCH ×2 (10:13→20:19)
[2021-01-14] MEDS ORDERED: FAMOTIDINE 20 MG/2 ML VIAL IV ONE ×2 (10:32→20:39)
[2021-01-14] MEDS ORDERED: METOPROLOL TARTRATE 5 MG/5 ML INJ IV ONE (10:32)
[2021-01-14] MEDS ORDERED: ENOXAPARIN 40 MG/0.4 ML SQ ONE (10:32)
[2021-01-14] MEDS: CALCIUM CARB 500MG/VIT D 200 IU TAB PO SCH (10:54)
[2021-01-14 12:54] LABS: Arterial Blood Carboxyhemoglob 1.2 % (0-1.5); Blood Gas Oxyhemoglobin 95.2 % (94-97); Blood O2 Saturation 97.2 % (92-98.5)
[2021-01-14] MEDS ORDERED: D5W 1,000 ML with NA BICARB 8.4% 50 MEQ IV SCH ×2 (13:00)
[2021-01-14] MEDS: D5W 1,000 ML with NA BICARB 8.4% 50 MEQ IV SCH ×2 (13:25)
[2021-01-14] MEDS: ONDANSETRON 4 MG/2 ML VIAL IV PRN (17:10)
[2021-01-14] MEDS ORDERED: ONDANSETRON 4 MG/2 ML VIAL ONE (17:28)
[2021-01-14] MEDS ORDERED: MINERAL OIL 30 ML UCUP PO ONE (18:00)
[2021-01-14] MEDS ORDERED: METOPROLOL TAR 50 MG TAB ONE (20:39)
[2021-01-14] MEDS: MORPHINE 2 MG/ML SYR IV PRN (21:00)
[2021-01-14] MEDS ORDERED: MORPHINE 2 MG/ML SYR ONE (21:17)
--- NOTE | 2021-01-14 22:10 | P.PN ---
Subjective Date of Service: 01/14/21 (TV) Primary Care Provider: Unknown Chief Complaint: Right hip fracture Subjective: Improving (S/P arthroplasty Doign well. tolerated weaning trial and pt was extubatedat noon/ unresponsive) Review of Systems Unremarkable Physical Examination - Vital Signs Temperature: 98.6 F Blood Pressure: 148/64 Pulse: 89 Respirations: 22 Pulse Ox (%): 99 - Studies Medications List Reviewed: Yes Assessment & Plan - Problems (Diagnosis) (1) Respiratory failure Current Visit: Yes Status: Acute Plan: Doign well/ tolerated SBT and was extubated/ Surgery done/ labs reviewed VS oxygenation satisfactory Qualifiers: Chronicity: acute
[2021-01-15] MEDS ORDERED: HALOPERIDOL LACT 5 MG/ML INJ ONE (00:33)
[2021-01-15] MEDS: MORPHINE 2 MG/ML SYR IV PRN (01:54)
[2021-01-15] MEDS ORDERED: MORPHINE 2 MG/ML SYR ONE (02:10)
[2021-01-15] MEDS: FENTANYL CITR 100 MCG/2 ML IV PRN (04:35)
[2021-01-15] MEDS ORDERED: FENTANYL CITR 100 MCG/2 ML ONE (04:54)
[2021-01-15] MEDS: LEVOTHYROXINE SODIUM 100 MCG VIAL IV SCH (05:33)
[2021-01-15] MEDS: PROPYLENE GLYCOL OPTH SCH ×2 (09:00→20:44)
[2021-01-15] MEDS: TIMOLOL MALEATE 0.5% OPTH 5 ML BTL OPTH SCH (09:00)
[2021-01-15] MEDS: ROSUVASTATIN 10 MG TAB PO SCH (09:00)
[2021-01-15] MEDS: PEG OPTH SCH ×2 (09:00→20:44)
[2021-01-15] MEDS: ENOXAPARIN 40 MG/0.4 ML SQ SCH (09:20)
[2021-01-15] MEDS: METOPROLOL TAR 50 MG TAB PO SCH ×2 (09:20→20:40)
[2021-01-15] MEDS: FAMOTIDINE 20 MG/2 ML VIAL IV SCH ×2 (09:20→20:41)
[2021-01-15] MEDS: CALCIUM CARB 500MG/VIT D 200 IU TAB PO SCH (09:20)
[2021-01-15] MEDS: D5W 1,000 ML with NA BICARB 8.4% 50 MEQ IV SCH ×2 (12:40)
[2021-01-15] MEDS ORDERED: BISACODYL E.C. 5 MG TAB PO ONE (18:30)
[2021-01-15] MEDS: BENZONATATE 100 MG CAP PO PRN (22:53)
[2021-01-16] MEDS: D5W 1,000 ML with NA BICARB 8.4% 50 MEQ IV SCH ×4 (02:42→12:20)
[2021-01-16] MEDS ORDERED: SODIUM BICARB 50 MEQ/50ML VIAL ONE ×2 (03:01→12:40)
[2021-01-16] MEDS: BENZONATATE 100 MG CAP PO PRN (05:44)
[2021-01-16] MEDS: LEVOTHYROXINE SOD 0.088 MG TAB PO SCH (07:30)
[2021-01-16] MEDS: ROSUVASTATIN 10 MG TAB PO SCH (08:53)
[2021-01-16] MEDS: FAMOTIDINE 20 MG/2 ML VIAL IV SCH ×2 (08:54→21:06)
[2021-01-16] MEDS: CALCIUM CARB 500MG/VIT D 200 IU TAB PO SCH ×2 (08:54→21:06)
[2021-01-16] MEDS: ENOXAPARIN 40 MG/0.4 ML SQ SCH (08:54)
[2021-01-16] MEDS: METOPROLOL TAR 50 MG TAB PO SCH ×2 (08:57→21:06)
[2021-01-16] MEDS: PROPYLENE GLYCOL OPTH SCH ×2 (08:58→21:00)
[2021-01-16] MEDS: TIMOLOL MALEATE 0.5% OPTH 5 ML BTL OPTH SCH (08:58)
[2021-01-16] MEDS: PEG OPTH SCH ×2 (08:58→21:00)
[2021-01-16 16:02] LABS: Absolute Lymphocytes (CBC) 1.4 K/uL (0.7-4.9); Basophils % 0.5 % (0-1.3); Hematocrit 25.2 % (36.0-45.0); Lymphocytes % 12.9 % (15.3-44.8); MPV 8.8 fL (7.6-11.3); RBC Red Blood Cell Count 2.68 M/uL (3.86-4.86)
--- NOTE | 2021-01-16 16:27 | P.PN ---
Date of Service: 01/14/21 Subjective Patient doing well. Extubated yesterday and started to work with physical therapy today. Got a little bit tired and dizzy and also a little confused. Continue current plan of care at this time. Review of Systems 10-point ROS is otherwise unremarkable Physical Examination - Vital Signs Reviewed - Physical Exam General: Intubated and sedated Respiratory: Clear to auscultation bilaterally, Normal air movement Cardiovascular: Regular rate/rhythm, Normal S1 S2, Systolic murmur Gastrointestinal: Normal bowel sounds, Soft and benign, Non-distended, No tenderness Musculoskeletal: No clubbing, No swelling, pain on movement of the right leg Neurological: Sensation intact, Cranial nerves 3-12 intact Assessment & Plan - Problems (Diagnosis) (1) Right hip fracture s/p replacement Current Visit: Yes Status: Acute (2) Critical care myopathy Current Visit: Yes Status: Acute (3) HTN (hypertension) Current Visit: Yes Status: Chronic (4) Dyslipidemia Current Visit: Yes Status: Chronic (5) History of sick sinus syndrome with pacemaker placement/History of SVT rhythm Current Visit: Yes Status: Chronic - Plan Plan: Continue with plan of care as mentioned below 1. Continue with physical therapy 2. Await rehab evaluation and placement 3. Appreciate Cardiology input 4. Pain control 5. Continue strict blood pressure control 6. Statin therapy and monitor cardiac rhythm
--- NOTE | 2021-01-16 16:30 | P.PN ---
Date of Service: 01/15/21 Subjective Patient doing better but she is still confused according to the family. Most likely related to the anesthesia. Otherwise, labs are unremarkable. Continue with therapy and awaiting for rehab evaluation. Review of Systems 10-point ROS is otherwise unremarkable Physical Examination - Vital Signs Reviewed - Physical Exam General: Intubated and sedated Respiratory: Clear to auscultation bilaterally, Normal air movement Cardiovascular: Regular rate/rhythm, Normal S1 S2, Systolic murmur Gastrointestinal: Normal bowel sounds, Soft and benign, Non-distended, No tenderness Musculoskeletal: No clubbing, No swelling, pain on movement of the right leg Neurological: Sensation intact, Cranial nerves 3-12 intact Assessment & Plan - Problems (Diagnosis) (1) Right hip fracture s/p replacement Current Visit: Yes Status: Acute (2) Critical care myopathy Current Visit: Yes Status: Acute (3) HTN (hypertension) Current Visit: Yes Status: Chronic (4) Dyslipidemia Current Visit: Yes Status: Chronic (5) History of sick sinus syndrome with pacemaker placement/History of SVT rhythm Current Visit: Yes Status: Chronic - Plan Plan: Continue with plan of care as mentioned below 1. Continue with physical therapy 2. Await rehab evaluation and placement 3. Continue follow-up with Orthopedic and Cardiology 4. Pain control 5. Continue strict blood pressure control 6. Statin therapy and monitor cardiac rhythm
--- NOTE | 2021-01-16 16:32 | P.PN ---
Date of Service: 01/15/21 Subjective Patient doing better, and patient's confusion is improved. Patient does have a cough. Otherwise, labs are unremarkable. Continue with therapy and awaiting for rehab evaluation. Review of Systems 10-point ROS is otherwise unremarkable Physical Examination - Vital Signs Reviewed - Physical Exam General: Intubated and sedated Respiratory: Clear to auscultation bilaterally, Normal air movement Cardiovascular: Regular rate/rhythm, Normal S1 S2, Systolic murmur Gastrointestinal: Normal bowel sounds, Soft and benign, Non-distended, No tenderness Musculoskeletal: No clubbing, No swelling, pain on movement of the right leg Neurological: Sensation intact, Cranial nerves 3-12 intact Assessment & Plan - Problems (Diagnosis) (1) Right hip fracture s/p replacement Current Visit: Yes Status: Acute (2) Critical care myopathy Current Visit: Yes Status: Acute (3) HTN (hypertension) Current Visit: Yes Status: Chronic (4) Dyslipidemia Current Visit: Yes Status: Chronic (5) History of sick sinus syndrome with pacemaker placement/History of SVT rhythm Current Visit: Yes Status: Chronic - Plan Plan: Continue with plan of care as mentioned below 1. Continue with physical therapy 2. Await rehab evaluation and placement 3. Continue follow-up with Orthopedic and Cardiology as well as pulmonary 4. Pain control 5. Continue strict blood pressure control 6. Statin therapy and monitor cardiac rhythm 7. If cough does not improve then may do a chest x-ray 8. Hep-Lock IV 9. GI and DVT prophylaxis
--- NOTE | 2021-01-16 16:34 | P.PN ---
Date of Service: 01/16/21 Subjective Patient doing better, and patient's confusion is improved. Patient does have a cough. Otherwise, labs are unremarkable. Continue with therapy and awaiting for rehab evaluation. Review of Systems 10-point ROS is otherwise unremarkable Physical Examination - Vital Signs Reviewed - Physical Exam General: Intubated and sedated Respiratory: Clear to auscultation bilaterally, Normal air movement Cardiovascular: Regular rate/rhythm, Normal S1 S2, Systolic murmur Gastrointestinal: Normal bowel sounds, Soft and benign, Non-distended, No tenderness Musculoskeletal: No clubbing, No swelling, pain on movement of the right leg Neurological: Sensation intact, Cranial nerves 3-12 intact Assessment & Plan - Problems (Diagnosis) (1) Right hip fracture s/p replacement Current Visit: Yes Status: Acute (2) Critical care myopathy Current Visit: Yes Status: Acute (3) HTN (hypertension) Current Visit: Yes Status: Chronic (4) Dyslipidemia Current Visit: Yes Status: Chronic (5) History of sick sinus syndrome with pacemaker placement/History of SVT rhythm Current Visit: Yes Status: Chronic - Plan Plan: Continue with plan of care as mentioned below 1. Continue with physical therapy 2. Await rehab evaluation and placement 3. Continue follow-up with Orthopedic and Cardiology as well as pulmonary 4. Pain control 5. Continue strict blood pressure control 6. Statin therapy and monitor cardiac rhythm 7. Will go ahead and order a chest x-ray because of the patient's cough 8. Hep-Lock IV 9. GI and DVT prophylaxis
[2021-01-16 16:41] LABS: Potassium 4.4 mmol/L (3.5-5.1)
--- NOTE | 2021-01-16 18:03 | RAD REPORT ---
EXAM DESCRIPTION: RAD - Chest Single View - 01/16/2021 5:45 pm CLINICAL HISTORY: cough Chest pain. COMPARISON: Chest Single View dated 01/11/2021; Chest Single View dated 01/09/2021; Chest Single View dated 02/09/2019 FINDINGS: Portable technique limits examination quality. The lungs are grossly clear. The heart is normal in size. No displaced fractures.Dual lead pacer jeovany ce is present. IMPRESSION: No acute intrathoracic process suspected.
[2021-01-16] MEDS: MORPHINE 2 MG/ML SYR IV PRN ×2 (18:45→23:13)
[2021-01-16] MEDS ORDERED: CALCIUM GLUC 10% INJ 4.65 MEQ in NA CHLORIDE 0.9% 100 ML IV ONE (19:22)
[2021-01-16] MEDS ORDERED: CALCIUM GLUCONATE 1 GM IVPB 1 GM/50 ML BAG IV ONE (23:27)
[2021-01-17] MEDS: D5W 1,000 ML with NA BICARB 8.4% 50 MEQ IV SCH ×4 (02:59→16:00)
[2021-01-17] MEDS ORDERED: SODIUM BICARB 50 MEQ/50ML VIAL ONE ×2 (03:15→16:49)
--- NOTE | 2021-01-17 06:00 | P.PN ---
Subjective Date of Service: 01/17/21 Primary Care Provider: Unknown Chief Complaint: Right hip fracture Subjective: Improving, Doing well Physical Examination - Vital Signs Temperature: 97.3 F Blood Pressure: 147/70 Pulse: 62 Respirations: 16 Pulse Ox (%): 98 - Studies Medications List Reviewed: Yes Assessment & Plan Discharge Plan: Other (Inpatient rehab versus skilled placement) Plan to discharge in: 48 Hours Physician Review Additional Text: Xray: CLINICAL HISTORY: RIGHT HIP FRACTURE COMPARISON: Hip Right 2 View dated 09/30/2020 FINDINGS: Subcapital fracture is seen of proximal right femur with varus angulation. No dislocation. Surgery: Date of Procedure: 01/13/2021 Surgeon: Bayron Mckeon MD Preoperative Diagnosis: Right femoral neck fracture, which was displaced. Postoperative Diagnosis: Right femoral neck fracture, which was displaced. Procedure: Right hip hemiarthroplasty using the [place] bipolar system from [employer] ([employer]). Estimated Blood Loss: 150 mL. Complications: There were no complications. ECHO: MEASUREMENTS (cm) DIASTOLIC (NORMALS) SYSTOLIC (NORMALS) IVSd 1.2 (0.6-1.2) LA Diam 2.2 (1.9-4.0) LVEF 64% LVIDd 3.5 (3.5-5.7) LVIDs 2.3 (2.0-3.5) %FS 34% LVPWd 1.2 (0.6-1.2) Ao Diam 2.5 (2.0-3.7) 2 DIMENSIONAL ASSESSMENT: RIGHT ATRIUM: NORMAL LEFT ATRIUM: NORMAL RIGHT VENTRICLE: NORMAL LEFT VENTRICLE: NORMAL TRICUSPID VALVE: NORMAL MITRAL VALVE: NORMAL PULMONIC VALVE: NORMAL AORTIC VALVE: NORMAL PERICARDIAL EFFUSION: NONE AORTIC ROOT: NORMAL LEFT VENTRICULAR WALL MOTION: NORMAL DOPPLER/COLOR FLOW: MILD TRICUSPID REGURGITATION. COMMENTS: NORMAL 2-DIMENSIONAL ECHOCARDIOGRAM. EJECTION FRACTION 64%. MILD TRICUPSID REGURGITATION. NORMAL RIGHT VENTRICULAR SYSTOLIC PRESSURE. Physical exam: General: Intubated and sedated Respiratory: Clear to auscultation bilaterally, Normal air movement Cardiovascular: Regular rate/rhythm, Normal S1 S2, Systolic murmur Gastrointestinal: Normal bowel sounds, Soft and benign, Non-distended, No tenderness Musculoskeletal: No clubbing, No swelling, pain on movement of the right leg Neurological: Sensation intact, Cranial nerves 3-12 intact Impression: Right subcapital femur proximal fracture status post right hip hemiarthroplasty Critical care myopathy Hypertension Dyslipidemia History of sick sinus syndrome with pacemaker placement/history of SVT Hypothyroidism Plan: Continue with plan of care as mentioned below 1. Continue with physical therapy and Occupational Therapy. Physical therapy recommends inpatient rehab. Await approval. If this fails will need to pursue either home with home health and physical therapy versus skilled placement. 2. Continue with current medicationsmetoprolol, Crestor, levothyroxine. 3. Pain well controlled. DC IV fluids 4. Discontinue Reyes catheter 5. Fall precaution in place 6. We will monitor the patient closely. DVT prophylaxis: Lovenox CODE STATUS: Full code Advance care [id number] minutes: Inpatient rehab Time Spent Managing Pts Care (In Minutes): 55
[2021-01-17 06:03] LABS: Absolute Lymphocytes (CBC) 1.1 K/uL (0.7-4.9); Basophils % 0.2 % (0-1.3); Hematocrit 23.7 % (36.0-45.0); Lymphocytes % 14.5 % (15.3-44.8); RBC Red Blood Cell Count 2.54 M/uL (3.86-4.86)
[2021-01-17] MEDS: LEVOTHYROXINE SOD 0.088 MG TAB PO SCH (06:06)
[2021-01-17 06:21] LABS: Magnesium 1.9 mg/dL (1.8-2.4); Potassium 4.7 mmol/L (3.5-5.1)
[2021-01-17] MEDS: ROSUVASTATIN 10 MG TAB PO SCH (08:21)
[2021-01-17] MEDS: ENOXAPARIN 40 MG/0.4 ML SQ SCH (08:22)
[2021-01-17] MEDS: FAMOTIDINE 20 MG/2 ML VIAL IV SCH ×2 (08:22→22:02)
[2021-01-17] MEDS: PEG OPTH SCH ×2 (08:25→21:00)
[2021-01-17] MEDS: PROPYLENE GLYCOL OPTH SCH ×2 (08:25→21:00)
[2021-01-17] MEDS: TIMOLOL MALEATE 0.5% OPTH 5 ML BTL OPTH SCH (08:25)
[2021-01-17] MEDS: CALCIUM CARB 500MG/VIT D 200 IU TAB PO SCH ×2 (08:25→22:02)
[2021-01-17] MEDS: METOPROLOL TAR 50 MG TAB PO SCH ×2 (08:25→22:02)
[2021-01-17] MEDS: MORPHINE 2 MG/ML SYR IV PRN (15:20)
[2021-01-17] MEDS ORDERED: TRAMADOL HCL 50 MG TAB PO PRN (16:26)
[2021-01-18] MEDS: HYDROCODONE/APAP 7.5/325 MG TAB PO PRN ×3 (02:00→20:47)
[2021-01-18] MEDS: LEVOTHYROXINE SOD 0.088 MG TAB PO SCH (05:54)
--- NOTE | 2021-01-18 06:07 | P.PN ---
Subjective Date of Service: 01/18/21 Primary Care Provider: Unknown Chief Complaint: Right hip fracture Subjective: Improving, Doing well Physical Examination - Vital Signs Temperature: 97.9 F Blood Pressure: 147/66 Pulse: 68 Respirations: 96 Pulse Ox (%): 96 - Studies Medications List Reviewed: Yes Assessment & Plan Discharge Plan: Other (Inpatient rehab) Plan to discharge in: 24 Hours Physician Review Additional Text: Xray: CLINICAL HISTORY: RIGHT HIP FRACTURE COMPARISON: Hip Right 2 View dated 09/30/2020 FINDINGS: Subcapital fracture is seen of proximal right femur with varus angulation. No dislocation. Surgery: Date of Procedure: 01/13/2021 Surgeon: Bayron Mckeon MD Preoperative Diagnosis: Right femoral neck fracture, which was displaced. Postoperative Diagnosis: Right femoral neck fracture, which was displaced. Procedure: Right hip hemiarthroplasty using the [place] bipolar system from [employer]. Estimated Blood Loss: 150 mL. Complications: There were no complications. ECHO: MEASUREMENTS (cm) DIASTOLIC (NORMALS) SYSTOLIC (NORMALS) IVSd 1.2 (0.6-1.2) LA Diam 2.2 (1.9-4.0) LVEF 64% LVIDd 3.5 (3.5-5.7) LVIDs 2.3 (2.0-3.5) %FS 34% LVPWd 1.2 (0.6-1.2) Ao Diam 2.5 (2.0-3.7) 2 DIMENSIONAL ASSESSMENT: RIGHT ATRIUM: NORMAL LEFT ATRIUM: NORMAL RIGHT VENTRICLE: NORMAL LEFT VENTRICLE: NORMAL TRICUSPID VALVE: NORMAL MITRAL VALVE: NORMAL PULMONIC VALVE: NORMAL AORTIC VALVE: NORMAL PERICARDIAL EFFUSION: NONE AORTIC ROOT: NORMAL LEFT VENTRICULAR WALL MOTION: NORMAL DOPPLER/COLOR FLOW: MILD TRICUSPID REGURGITATION. COMMENTS: NORMAL 2-DIMENSIONAL ECHOCARDIOGRAM. EJECTION FRACTION 64%. MILD TRICUPSID REGURGITATION. NORMAL RIGHT VENTRICULAR SYSTOLIC PRESSURE. Physical exam: General: Intubated and sedated Respiratory: Clear to auscultation bilaterally, Normal air movement Cardiovascular: Regular rate/rhythm, Normal S1 S2, Systolic murmur Gastrointestinal: Normal bowel sounds, Soft and benign, Non-distended, No tenderness Musculoskeletal: No clubbing, No swelling, pain on movement of the right leg Neurological: Sensation intact, Cranial nerves 3-12 intact Impression: Right subcapital femur proximal fracture status post right hip hemiarthroplasty Critical care myopathy Hypertension Dyslipidemia History of sick sinus syndrome with pacemaker placement/history of SVT Hypothyroidism Plan: Continue with plan of care as mentioned below 1. Continue with physical therapy and Occupational Therapy. Physical therapy recommends inpatient rehab. Await approval. If this fails will need to pursue either home with home health and physical therapy. 2. Continue with current medicationsmetoprolol, Crestor, levothyroxine. 3. Pain well controlled. DC IV fluids 4. Patient ambulating well with physical therapy 5. Fall precaution in place 6. Will monitor CBC closely DVT prophylaxis: Lovenox CODE STATUS: Full code Advance care [email or web address] minutes: Inpatient rehab Time Spent Managing Pts Care (In Minutes): 55
[2021-01-18] MEDS: PROPYLENE GLYCOL OPTH SCH ×2 (09:00→20:49)
[2021-01-18] MEDS: PEG OPTH SCH ×2 (09:00→20:49)
[2021-01-18] MEDS: ENOXAPARIN 40 MG/0.4 ML SQ SCH (09:00)
[2021-01-18] MEDS: TIMOLOL MALEATE 0.5% OPTH 5 ML BTL OPTH SCH (09:00)
[2021-01-18] MEDS: CALCIUM CARB 500MG/VIT D 200 IU TAB PO SCH ×2 (09:48→20:47)
[2021-01-18] MEDS: FAMOTIDINE 20 MG/2 ML VIAL IV SCH ×2 (09:48→20:45)
[2021-01-18] MEDS: ROSUVASTATIN 10 MG TAB PO SCH (09:48)
[2021-01-18] MEDS: METOPROLOL TAR 50 MG TAB PO SCH ×2 (09:48→20:46)
[2021-01-19] MEDS: LEVOTHYROXINE SOD 0.088 MG TAB PO SCH (05:44)
[2021-01-19 05:51] LABS: Absolute Lymphocytes (CBC) 1.4 K/uL (0.7-4.9); Basophils % 0.6 % (0-1.3); Hematocrit 25.6 % (36.0-45.0); MPV 9.2 fL (7.6-11.3); RBC Red Blood Cell Count 2.71 M/uL (3.86-4.86)
[2021-01-19 05:57] VITALS: BP 163/73; TEMP 97.5
--- NOTE | 2021-01-19 05:58 | P.PN ---
Subjective Date of Service: 01/19/21 Primary Care Provider: Unknown Chief Complaint: Right hip fracture Subjective: Improving, Doing well Physical Examination - Vital Signs Temperature: 97.5 F Blood Pressure: 163/73 Pulse: 63 Respirations: 18 Pulse Ox (%): 97 - Studies Medications List Reviewed: Yes Assessment & Plan Discharge Plan: Other (Inpatient rehab) Plan to discharge in: 24 Hours Physician Review Additional Text: Xray: CLINICAL HISTORY: RIGHT HIP FRACTURE COMPARISON: Hip Right 2 View dated 09/30/2020 FINDINGS: Subcapital fracture is seen of proximal right femur with varus angulation. No dislocation. Surgery: Date of Procedure: 01/13/2021 Surgeon: Bayron Mckeon MD Preoperative Diagnosis: Right femoral neck fracture, which was displaced. Postoperative Diagnosis: Right femoral neck fracture, which was displaced. Procedure: Right hip hemiarthroplasty using the [place] bipolar system from [employer]. Estimated Blood Loss: 150 mL. Complications: There were no complications. ECHO: MEASUREMENTS (cm) DIASTOLIC (NORMALS) SYSTOLIC (NORMALS) IVSd 1.2 (0.6-1.2) LA Diam 2.2 (1.9-4.0) LVEF 64% LVIDd 3.5 (3.5-5.7) LVIDs 2.3 (2.0-3.5) %FS 34% LVPWd 1.2 (0.6-1.2) Ao Diam 2.5 (2.0-3.7) 2 DIMENSIONAL ASSESSMENT: RIGHT ATRIUM: NORMAL LEFT ATRIUM: NORMAL RIGHT VENTRICLE: NORMAL LEFT VENTRICLE: NORMAL TRICUSPID VALVE: NORMAL MITRAL VALVE: NORMAL PULMONIC VALVE: NORMAL AORTIC VALVE: NORMAL PERICARDIAL EFFUSION: NONE AORTIC ROOT: NORMAL LEFT VENTRICULAR WALL MOTION: NORMAL DOPPLER/COLOR FLOW: MILD TRICUSPID REGURGITATION. COMMENTS: NORMAL 2-DIMENSIONAL ECHOCARDIOGRAM. EJECTION FRACTION 64%. MILD TRICUPSID REGURGITATION. NORMAL RIGHT VENTRICULAR SYSTOLIC PRESSURE. Physical exam: General: Intubated and sedated Respiratory: Clear to auscultation bilaterally, Normal air movement Cardiovascular: Regular rate/rhythm, Normal S1 S2, Systolic murmur Gastrointestinal: Normal bowel sounds, Soft and benign, Non-distended, No tenderness Musculoskeletal: No clubbing, No swelling, pain on movement of the right leg Neurological: Sensation intact, Cranial nerves 3-12 intact Impression: Right subcapital femur proximal fracture status post right hip hemiarthroplasty Critical care myopathy Hypertension Dyslipidemia History of sick sinus syndrome with pacemaker placement/history of SVT Hypothyroidism Plan: Continue with plan of care as mentioned below 1. Continue with physical therapy and Occupational Therapy. Physical therapy recommends inpatient rehab. Await approval. If this fails will need to pursue either home with home health and physical therapy. 2. Continue with current medicationsmetoprolol, Crestor, levothyroxine. 3. Pain well controlled. DC IV fluids 4. Patient ambulating well with physical therapy 5. Fall precaution in place 6. Will monitor CBC closely 7. Patient with history of left hip arthritis. Some reports of pain noted. Will check hip x-ray. Await approval for inpatient rehab. DVT prophylaxis: Lovenox CODE STATUS: Full code Advance care [email or web address] minutes: Inpatient rehab Time Spent Managing Pts Care (In Minutes): 55
--- NOTE | 2021-01-19 08:34 | P.DS ---
Admission Date: 01/09/21 Discharge Date: 01/19/21 Primary Care Provider: Dr. Castillo Disposition: TRANSFER TO INPATIENT REHAB Discharge Condition: GOOD Reason for Admission: Right hip fracture Consultations: Orthopedics-Dr. Mckeon Pulmonary-Dr. Berger Cardiology-Dr. Mcleod Procedures: Xray: CLINICAL HISTORY: RIGHT HIP FRACTURE COMPARISON: Hip Right 2 View dated 09/30/2020 FINDINGS: Subcapital fracture is seen of proximal right femur with varus angulation. No dislocation. Surgery: Date of Procedure: 01/13/2021 Surgeon: Bayron Mckeon MD Preoperative Diagnosis: Right femoral neck fracture, which was displaced. Postoperative Diagnosis: Right femoral neck fracture, which was displaced. Procedure: Right hip hemiarthroplasty using the [place] bipolar system from [employer]. Estimated Blood Loss: 150 mL. Complications: There were no complications. ECHO: MEASUREMENTS (cm) DIASTOLIC (NORMALS) SYSTOLIC (NORMALS) IVSd 1.2 (0.6-1.2) LA Diam 2.2 (1.9-4.0) LVEF 64% LVIDd 3.5 (3.5-5.7) LVIDs 2.3 (2.0-3.5) %FS 34% LVPWd 1.2 (0.6-1.2) Ao Diam 2.5 (2.0-3.7) 2 DIMENSIONAL ASSESSMENT: RIGHT ATRIUM: NORMAL LEFT ATRIUM: NORMAL RIGHT VENTRICLE: NORMAL LEFT VENTRICLE: NORMAL TRICUSPID VALVE: NORMAL MITRAL VALVE: NORMAL PULMONIC VALVE: NORMAL AORTIC VALVE: NORMAL PERICARDIAL EFFUSION: NONE AORTIC ROOT: NORMAL LEFT VENTRICULAR WALL MOTION: NORMAL DOPPLER/COLOR FLOW: MILD TRICUSPID REGURGITATION. COMMENTS: NORMAL 2-DIMENSIONAL ECHOCARDIOGRAM. EJECTION FRACTION 64%. MILD TRICUPSID REGURGITATION. NORMAL RIGHT VENTRICULAR SYSTOLIC PRESSURE. Post surgery CXR: COMPARISON: Chest Single View dated 01/11/2021; Chest Single View dated 01/09/2021; Chest Single View dated 02/09/2019 FINDINGS: Portable technique limits examination quality. The lungs are grossly clear. The heart is normal in size. No displaced fractures.Dual lead pacer device is present. IMPRESSION: No acute intrathoracic process suspected. Medical problem list: Right subcapital femur proximal fracture status post right hip hemiarthroplasty Left hip pain with history of arthritis Critical care myopathy Hypertension Dyslipidemia History of sick sinus syndrome with pacemaker placement/history of SVT Hypothyroidism Postoperative anemia Brief History of Present Illness: 80-year-old female with history of hypertension, hyperlipidemia, hypothyroidism presents with right hip pain. She apparently fell yesterday and was seen in [place] and diagnosed with a right femoral neck fracture. The patient left AGAINST MEDICAL ADVICE from the emergency department in [facility] to come here for further evaluation and treatment. Patient was evaluated in the emergency room. Patient admitted for further evaluation and treatment. Hospital Course: Patient presented with right hip fracture. Patient had been seen in [facility] at an emergency room. She apparently left AGAINST MEDICAL ADVICE to come here locally to have her hip treated. She was found to have a right subcapital femur proximal fracture. Patient with history of arthritis. The patient was seen and evaluated by orthopedics who recommended intervention. Due to her history of hypertension, dyslipidemia, history of sick sinus syndrome with pacemaker placement, history of SVT, and hypothyroidism, the patient was seen and evaluated by cardiology in preparation for the procedure. The procedure was delayed until the patient was cleared by cardiology. The patient was eventually cleared. Postoperatively patient remained on the vent. Patient was seen by pulmonology to further evaluate. She was eventually weaned off the ventilator. Patient did have an episode of SVT which was resolved with beta- eli therapy. The patient has done well postoperatively. Patient was evaluated by physical therapy. Physical therapy recommended inpatient rehab. The patient has been accepted. The patient will continue with physical therapy at inpatient rehab. Patient status post hemiarthroplasty. Continue with orthopedic recommendations. Fall precautions in place. Patient will continue with tramadol 50 mg 1 pill 3 times a day as needed for pain. Patient will continue with DVT prophylaxisLovenox subcu daily for at least 14 days. Further adjustment in medication can be done in inpatient rehab. Patient with hypertension. Medications have been adjusted. Due to her history of sick sinus syndrome with pacemaker placement and recent SVT, the patient was given metoprolol. Blood pressures stable. At discharge the patient will continue with metoprolol 50 mg 1 pill twice daily. Additional medication includes losartan 25 mg 1 pill twice daily. Patient will continue with her medication aspirin 80 mg daily. Patient previously on olmesartan hydr ochlorothiazide. This has been discontinued. Recommend to maintain blood pressure less than 130/80. Further adjustment can be done in inpatient rehab. If blood pressures remain greater than 140/90 medications may need to be adjusted. Hold medication if blood pressure systolic less than 110 or heart rate less than 60. Recommend follow-up with cardiology as an outpatient to further monitor and adjust medication. Patient with hyperlipidemia. At discharge patient will continue with Crestor 20 mg daily. Patient with hypothyroidism. At discharge patient will continue with levothyroxine 88 mcg daily. Patient with postoperative anemia. Overall stable. Patient may continue with multivitamin with iron daily. Prior to discharge patient reported history of arthritis to the left hip. Chari jovel reported some pain stable with medication. X-rays of the left hip will be done. This can be followed up in inpatient rehab. Patient has follow-up with orthopedics as an outpatient. Vital Signs/Physical Exam: Temp Pulse Resp BP Pulse Ox 97.5 F 63 18 163/73 H 97 01/19/21 08:32 01/19/21 08:32 01/19/21 08:32 01/19/21 08:32 01/19/21 08:32 General: Alert, In no apparent distress, Oriented x3, Cooperative HEENT: Atraumatic Neck: Supple Respiratory: Clear to auscultation bilaterally, Normal air movement Cardiovascular: Normal pulses, Regular rate/rhythm Gastrointestinal: Normal bowel sounds, No masses, No rebound, No guarding Musculoskeletal: No erythema, No tenderness, No warmth, Other (Postoperative changes noted to the right hip) Integumentary: No tenderness/swelling Neurological: Normal speech, Normal strength at 5/5 x4 extr, Normal tone, Normal affect Laboratory Data at Discharge: WBC 8.10 K/uL (4.3-10.9) 01/19/21 05:22 Hgb 8.8 g/dL (12.0-15.0) L 01/19/21 05:22 Hct 25.6 % (36.0-45.0) L 01/19/21 05:22 Plt Count 233 K/uL (152-406) D 01/19/21 05:22 PT 11.9 SECONDS (9.5-12.5) 01/09/21 17:03 INR 1.03 01/09/21 17:03 Sodium 135 mmol/L (136-145) L 01/17/21 05:40 Potassium 4.7 mmol/L (3.5-5.1) 01/17/21 05:40 BUN 13 mg/dL (7-18) 01/17/21 05:40 Creatinine 0.71 mg/dL (0.55-1.3) 01/17/21 05:40 Glucose 138 mg/dL (74-106) H 01/17/21 05:40 Phosphorus 4.1 mg/dL (2.5-4.9) 01/13/21 06:53 Magnesium 1.9 mg/dL (1.8-2.4) 01/17/21 05:40 Total Bilirubin 0.5 mg/dL (0.2-1.0) 01/12/21 04:48 AST 18 U/L (15-37) 01/12/21 04:48 ALT 22 U/L (12-78) 01/12/21 04:48 Alkaline Phosphatase 41 U/L (45-117) L 01/12/21 04:48 Troponin I 0.03 ng/mL (0.0-0.045) 01/11/21 21:29 Triglycerides 139 mg/dL (<150) 01/10/21 04:25 Cholesterol 119 mg/dL (<200) 01/10/21 04:25 HDL Cholesterol 62 mg/dL (40-60) H 01/10/21 04:25 Cholesterol/HDL Ratio 1.92 01/10/21 04:25 Home Medications: Aspirin [Lo-Dose Aspirin EC] 81 mg PO DAILY 01/09/21 Calcium Carbonate/Vitamin D3 [Calcium 600 mg-D3 20 Mcg Cplt] 1 each PO DAILY 01/09/21 Levothyroxine [Synthroid*] 88 mcg PO DAILY 01/09/21 Propylene Glycol/Peg 400 [Systane Ultra 0.3-0.4% Eye Drp] 2 drops RIGHT EYE BID 01/09/21 Rosuvastatin Calcium 20 mg PO DAILY 01/09/21 Timolol 0.5% Opth [Timoptic 0.5% Opth*] 1 drop OPTH DAILY 01/09/21 Enoxaparin Sodium [Lovenox 40 MG INJ] 40 mg SQ DAILY #14 syr 01/19/21 Losartan Potassium [Cozaar*] 25 mg PO BID #60 tablet 01/19/21 Metoprolol Tartrate [Lopressor*] 50 mg PO BID #60 tab 01/19/21 Multivitamin with Iron [Daily Vitamin + Iron] 1 each PO DAILY #30 tablet 01/19/21 traMADol HCL [Ultram*] 50 mg PO TID PRN #15 tab 01/19/21 New Medications: Losartan Potassium [Cozaar*] 25 mg PO BID #60 tablet Multivitamin with Iron [Daily Vitamin + Iron] 1 each PO DAILY #30 tablet Metoprolol Tartrate [Lopressor*] 50 mg PO BID #60 tab Enoxaparin Sodium [Lovenox 40 MG INJ] 40 mg SQ DAILY #14 syr traMADol HCL [Ultram*] 50 mg PO TID PRN #15 tab PRN Reason: Pain Scale 2-4 (Mild) Physician Discharge Instructions: Patient presented with right hip fracture. Patient had been seen in [facility] at an emergency room. She apparently left AGAINST MEDICAL ADVICE to come here locally to have her hip treated. She was found to have a right subcapital femur proximal fracture. Patient with history of arthritis. The patient was seen and evaluated by orthopedics who recommended intervention. Due to her history of hypertension, dyslipidemia, history of sick sinus syndrome with pacemaker placement, history of SVT, and hypothyroidism, the patient was seen and evaluated by cardiology in preparation for the procedure. The procedure was delayed until the patient was cleared by cardiology. The patient was eventually cleared. Postoperatively patient remained on the vent. Patient was seen by pulmonology to further evaluate. She was eventually weaned off the ventilator. Patient did have an episode of SVT which was resolved with beta- eli therapy. The patient has done well postoperatively. Patient was evaluated by physical therapy. Physical therapy recommended inpatient rehab. The patient has been accepted. The patient will continue with physical therapy at inpatient rehab. Patient status post hemiarthroplasty. Continue with orthopedic recommendations. Fall precautions in place. Patient will continue with tramadol 50 mg 1 pill 3 times a day as needed for pain. Patient will continue with DVT prophylaxisLovenox subcu daily for at least 14 days. Further adjustment in medication can be done in inpatient rehab. Patient with hypertension. Medications have been adjusted. Due to her history of sick sinus syndrome with pacemaker placement and recent SVT, the patient was given metoprolol. Blood pressures stable. At discharge the patient will continue with metoprolol 50 mg 1 pill twice daily. Additional medication includes losartan 25 mg 1 pill twice daily. Patient will continue with her medication aspirin 80 mg daily. Patient previously on olmesartan hydrochlorothiazide. This has been discontinued. Recommend to maintain blood pressure less than 130/80. Further adjustment can be done in inpatient rehab. If blood pressures remain greater than 140/90 medications may need to be a djusted. Hold medication if blood pressure systolic less than 110 or heart rate less than 60. Recommend follow-up with cardiology as an outpatient to further monitor and adjust medication. Patient with hyperlipidemia. At discharge patient will continue with Crestor 20 mg daily. Patient with hypothyroidism. At discharge patient will continue with levothyroxine 88 mcg daily. Patient with postoperative anemia. Overall stable. Patient may continue with multivitamin with iron daily. Prior to discharge patient reported history of arthritis to the left hip. Patient reported some pain stable with medication. X-rays of the left hip will be done. This can be followed up in inpatient rehab. Patient has follow-up with orthopedics as an outpatient. Diet: AHA Activity: Fall precautions Followup: Guilherme Pope MD [Primary Care Provider] - Time spent managing pt's care (in minutes): 55
[2021-01-19 08:36] VITALS: O2SAT 95
[2021-01-19] MEDS ORDERED: LOSARTAN POTASSIUM 50 MG TABLET PO SCH (09:00)
[2021-01-19] MEDS: PEG OPTH SCH (09:00)
[2021-01-19] MEDS: PROPYLENE GLYCOL OPTH SCH (09:00)
[2021-01-19] MEDS: TIMOLOL MALEATE 0.5% OPTH 5 ML BTL OPTH SCH (09:00)
[2021-01-19] MEDS: METOPROLOL TAR 50 MG TAB PO SCH (09:09)
[2021-01-19] MEDS: FAMOTIDINE 20 MG/2 ML VIAL IV SCH (09:09)
[2021-01-19] MEDS: ROSUVASTATIN 10 MG TAB PO SCH (09:09)
[2021-01-19] MEDS: CALCIUM CARB 500MG/VIT D 200 IU TAB PO SCH (09:09)
[2021-01-19] MEDS: ENOXAPARIN 40 MG/0.4 ML SQ SCH (09:09)
--- NOTE | 2021-01-19 10:17 | RAD REPORT ---
EXAM DESCRIPTION: RAD - Hip Left 2 View - 01/19/2021 9:17 am CLINICAL HISTORY: left hip pain, hx arthritis COMPARISON: No comparisons FINDINGS: Mild osteoarthritic changes affect the left hip. No fracture, dislocation or AVN. Moderate lumbar degenerative changes.
== END 2021-01-19 10:30 | DRG 521 ==
LOC: ER 16:23 → ERHOLD 18:53 → 2ND 01-10 16:15 → ERHOLD 01-11 22:32 → 2ND 01-15 08:46
PROVIDERS: ADMIT Hospitalist; ATTEND Hospitalist
PROC: 0BH17EZ Insertion of Endotracheal Airway into Trachea, Via Natural or Artificial Opening (ICD-10-PCS; 2021-01-11)
PROC: 5A1945Z Respiratory Ventilation, 24-96 Consecutive Hours (ICD-10-PCS; 2021-01-11)
PROC: 0SRR019 Replacement of Right Hip Joint, Femoral Surface with Metal Synthetic Substitute, Cemented, Open Approach (ICD-10-PCS; principal; 2021-01-13 16:30)
DX: S72.011A Unspecified intracapsular fracture of right femur, initial encounter for closed fracture (principal); J96.00 Acute respiratory failure, unspecified whether with hypoxia or hypercapnia; E87.1 Hypo-osmolality and hyponatremia; I42.0 Dilated cardiomyopathy; I47.1 Supraventricular tachycardia; G72.81 Critical illness myopathy; W19.XXXA Unspecified fall, initial encounter; Y92.9 Unspecified place or not applicable; I10 Essential (primary) hypertension; E78.5 Hyperlipidemia, unspecified; E03.9 Hypothyroidism, unspecified; I95.9 Hypotension, unspecified; D64.9 Anemia, unspecified; Z95.810 Presence of automatic (implantable) cardiac defibrillator; Z20.822 Contact with and (suspected) exposure to COVID-19
CPT/HCPCS: 36415; 71045; 72170; 80048; 80053; 80061; 80076; 81003; 81015; 82805; 82947; 83735; 83880; 84100; 84439; 84443; 84484; 85025; 85027; 85610; 87086; 87088; 88305; 88311; 93005; 93306; 94003; 96374; 96375; 97110; 97116; 97161; 97530; 99285; J0360; J0610; J0690; J0696; J1100; J1170; J1630; J1650; J2250; J2270; J2370; J2405; J2704; J2710; J3010; J7030; P9045; U0003

== ENCOUNTER 2021-01-18 08:39 | Inpatient (IN) | payer OTHER ==
--- OUTSIDE RECORDS SUMMARY | 2021-01-19 10:35 | XMS REPORT | Continuity of Care Document ---
:1940 Author Organization [facility] t Address [address] [place] [address] Care Team Providers Name Role Phone Aide Lei Attending Clinician Unavailable Wyatt Scott Admitting Clinician Unavailable Payers Payer Name Policy Type Policy Number Effective Date Expiration Date S ource Problems This patient has no known problems. Allergies, Adverse Reactions, Alerts Allergy Allergy Status Severity Reaction(s) Onset Inactive Treating Comm ents Source Name Type Date Date Clinician No Known DA Active [facility] Allergie 01-08 [facility] 00:00: Doreen 00 [facility] Medications Ordered Filled Start Stop Current Ordering [...] Type Type Clinicians Facility Department ID 2021-01-08 2021-01-09 Emergency EM Do, [facility] ER [id number] [facility] 19:45:00 12:08:00 [facility] [id number] [facility] 2020-12-27 2020-12-27 [id number] 2020-12-06 2020-12-06 [facility] [id number] 2020-10-05 2020-10-05 [facility] [id number] [facility] 2020-10-04 2020-10-04 [id number] [facility] 2019-01-03 2019-01-03 [facility] [id number] [facility] 11[facility]36:00 11:36:00 [facility] 2018-10-31 2018-10-31 [facility] [id number] [facility] 09:00:00 09:00:00 [facility] Outpat[facility] Clinics Results Test Description Test Time Test Comments Results Result Comments Source COVID 19 INHOUSE AG 2021-01-09 12:10:00 Test Item Value Reference Range Interpretation Comme nts COVID 19 INHOUSE AG (test NEGATIVE Negative " The Gisela SARS Antigen JOANNA does not code = [id number]) differen tiate betweenSARS-CoV and SARS-CoV-2 " Th e Gisela SARS Antigen JOANNA employs immunof luorescencetechnology in a sandwich gina gn that is used with Gisela todetect nucleocapsid protein from SARS-CoV and SA RS-CoV-2.This test allows for the detecti on of SARS-CoV [id number]. The test detects, but does not differ entiate,between the two viruses. " Resu lts are for the identification of [id number] protein antigen . Antigen is generallydetect able [...] Certificate of Accreditation - XR L-SPINE 2/3 [id number] 22:50:00 [facility] : 1940 Sex: F Patient Name: MANOJ RONDON Unit No: [id number] EXAMS: CPT CODE: [id number] XR L-SPINE 2/3 [id number] Reason: FALL R HIP PAIN PROCEDURE INFORMATION: [...] by: Marco Gutierrez MD CC: Lou Gonzalez FIBRE CEMENT MOULDER; Jesica Lovell DO Technologist: Bayron Painter CT Trscrpt Dt/ (2249)VRAD.VR Orig Print D/T: S: 01/08/2021(2249) [place] FSED NAME: MANOJ RONDON [address] PHYS: [place] [address] : 1940 AGE: 80 SEX: F LOC: D.NER PHONE #: [phone] EXAM DATE: 01/08/2021 STATUS: REG ER FAX [...] 8.7-10.5 L CA) - XR HIP BI [id number] 22:43:00 [facility] 1940 Sex: F Patient Name: MANOJ RONDON Unit No: [id number] EXAMS: CPT CODE: [id number] XR HIP BI [id number] Reason: FALL R HIP PAIN PROCEDURE INFORMATION: [...] by: Marco Gutierrez MD CC: Lou Gonzalez FIBRE CEMENT MOULDER; Jesica Lovell DO Technologist: Bayron Painter CT Trscrpt Dt/ (2242)[email or web address].VR Orig Print D/T: S: 01/08/2021 (2242) [place] FSED NAME: MANOJ RONDON [address] PHYS: [place] [address] : 1940 AGE: 80 SEX: F LOC: DKyleNER PHONE #: [phone] EXAM DATE: 01/08/2021 STATUS: REG ER FAX #: RAD NO: DC Dt: PAGE 1 Signed ReportCBC W/AUTO [id number] 22:03:00 Test Item Value Reference Range Interpretation [...]
--- NOTE | 2021-01-19 11:30 | R.PREADM ---
PRE-ADMISSION SCREENING FORM SCREENING DATE AND TIME 01/17/2021 10:40 (CDT) ANTICIPATED REHAB ADMISSION DATE 01/19/2021 REFERRING FACILITY [facility] REFERRAL DATE AND TIME 01/16/2021 10:47 (CDT) REFERRAL ROOM# 220 ACUTE ADMIT DATE 01/18/2021 Previous Rehabilitation(s): No. ACUTE ACTIVE DIRECTORY SYSTEMS ADMINISTRATOR/DC SUPERVISOR LAST MODEL DEPARTMENT Feli ATTENDING PHYSICIAN REFERRING PHYSICIAN REHAB FACILITY [facility] PHYSICIAN REVIEWER Dr. Shahram Foy MR# [id number] NAME MANOJ LE ADDRESS [address] [facility] [id number] DATE OF 1940 AGE 81 SSN# [id number] GENDER female MARITAL STATUS PREF. LANGUAGE (IF NON-DANISH) Albanian ADMIT FROM 02 - [facility] PRE-HOSPITAL LIVING SETTING 01 - Home (private home/apt. board/care, assisted living, care home, transitional living) HOME TYPE AND DETAILS Type of home: single family house # of levels in the residence: 2 # of steps within the residence: 12 # of steps to enter the residence: 2 PRE-HOSPITAL LIVING WITH Family/Relatives FAMILY SUPPORT Limited PRIMARY FAMILY CONTACT NAME MANOJ YING PRIMARY FAMILY CONTACT PHONE PRIMARY FAMILY CONTACT RELATIONSHIP DAUGHTER PHONE PRIMARY FAMILY CONTACT ON ADM.? no IS PRIMARY FAMILY CONTACT AUTH. REP.? no 1ST EMERGENCY CONTACT AMNOJ YING 1ST CONTACT PHONE 1ST CONTACT RELATIONSHIP DAUGHTER PHONE 1ST CONTACT ON ADM. no IS 1ST CONTACT AUTH. REP.? no PHONE 2ND CONTACT ON ADM.? no PATIENT EMPLOYMENT STATUS Retired (for age) PATIENT EMPLOYER No Employer PAYOR INFORMATION: 1ST PAYOR NAME LYRIC 1ST PAYOR PHONE INJURY/ILLNESS DUE TO ACCIDENT? No ANOTHER DEMOCRAT RESPONSIBLE? No PRIMARY REHAB/ACUTE DIAGNOSIS: RIGHT HIP FX ONSET DATE 01/09/2021 REHAB IMPAIRMENT CATEGORY (KHANG): 07 Fracture of LE (FracLE) MEETS 60% rule AFFECTED EXTREMITIES: RLE PRIMARY DIAGNOSIS-RELATED SURGERIES: BIPOLAR HIP ARTHROPLASTY INTERVENTIONS: - Anoxic Brain Injury Fall prevention education SUMMARY OF ACUTE HOSPITALIZATION: Pt. is a 81 yo Right-handed female. On 01/09/2021 she was admitted to [facility] with diagnosis RIGHT HIP FX. Her impairment category is Orthopaedic Disorders 08 - Unilateral Hip Fracture (08.11). Pre-morbidly, Pt. was independent/mod-I in Locomotion, Safety Awareness, Communication, and Self-Care ; and she had good Sphincter Control, Transfers Control, and Social Cognition. Currently, she has deficits of Locomotion, Social Cognition, Safety Awareness, Balance, Transfers Con trol, Sphincter Control, Self-Care, and Endurance. Pt. is now referred to [facility] for acute in-patient rehabilitation in order to maximize patient's functional independence in activities of daily living, strength, ROM, and mobi lity. Patient has realistic goal of being discharged at assistance level 7-Ind to reside at Home with Fami ly/Relatives. PAST MEDICAL HISTORY HYPERTENSION HYPERLIPIDEMIA HYPOTHYROIDISM PAST SURGICAL HISTORY: CATARACT SURGERY THYROIDECTOMY COLONIC POLYP REMOVAL TONSILLECTOMY RIGHT KNEE ARTHROSCOPY MEDICATION ALLERGIES: No Known Drug Allergies (NKDA) ENVIRONMENTAL ALLERGIES: - Substance Allergies None Known - Other Allergies None Known CODE STATUS: Full code WEIGHT/HEIGHT/BMI: WEIGHT 138 lbs HEIGHT 5' 6" BMI 22.3 DIET: - Diet Type Regular - Diet - Solid Texture Regular - Diet - Liquid Texture Regular - Tube Feed N/A REVIEW OF SYSTEMS: - Gen Alert and awake Lying in bed No apparent distress Oriented to: person, time, and place - Vital Signs Temperature: 97.3 F SBP/DBP: 147/70 Pulse: 62 Resp: 16 Vital signs stable, afebrile - CVS RRR VITAL SIGNS Temperature: 97.3 F SBP/DBP: 147/70 Pulse: 62 Resp: 16 Vital signs stable, afebrile MEDICATIONS/TREATMENT: Other- See attached MAR (Medication Administration Record). CURRENT SPHINCTER CONTROL: Pre-hospital bladder status: unspecified # of bladder accidents in the last 7 days prior to screenin Pre-hospital bowel status: unspecified # of bowel accidents in the last 7 days prior to screenin Last Bowel Movement Date: 01/17/2021 CURRENT LOCOMOTION STATUS: distance walked 45 feet with rolling walker DETAILED CURRENT FUNCTIONAL STATUS: - Bladder accident frequency: 7-Ind - No accidents in the past 7 days - Bowel accident frequency: 7-Ind - No accidents in the past 7 days - Walking score based on distance walked: 0(N/A) score based on distance walked: 1(<=50ft) - Wheelchair score based on distance traveled: 0(N/A) QI SCORES: - Self-Care A. Eating 06-Independent B. Oral hygiene 03-Partial/moderate assistance C. Toileting hygiene 88-Not attempted due to medical condition or safety concerns E. Shower/bathe self 02-Substantial/maximal assistance F. Upper body dressing 03-Partial/moderate assistance G. Lower body dressing 02-Substantial/maximal assistance H. Putting on/taking off footwear 88-Not attempted due to medical condition or safety concerns - Mobility A. Roll left and right 03-Partial/moderate assistance B. Sit to lying 03-Partial/moderate assistance C. Lying to sitting on side of bed 02-Substantial/maximal assistance D. Sit to stand 02-Substantial/maximal assistance E. Chair/phr-cp-xnxka transfer 02-Substantial/maximal assistance F. Toilet transfer 02-Substantial/maximal assistance G. Car transfer 88-Not attempted due to medical condition or safety concerns I. Walk 10 feet 02-Substantial/maximal assistance J. Walk 50 feet with two turns 88-Not attempted due to medical condition or safety concerns K. Walk 150 feet 88-Not attempted due to medical condition or safety concerns L. Walking 10 feet on uneven surfaces 88-Not attempted due to medical condition or safety concerns M. 1 step (curb) 88-Not attempted due to medical condition or safety concerns N. 4 steps 88-Not attempted due to medical condition or safety concerns O. 12 steps 88-Not attempted due to medical condition or safety concerns P. Picking up object 88-Not attempted due to medical condition or safety concerns R. Wheel 50 feet with two turns 88-Not attempted due to medical condition or safety concerns S. Wheel 150 feet 88-Not attempted due to medical condition or safety concerns - Bladder and Bowel Bladder continence Bowel continence - Endurance Good - Balance Fair - Safety Awareness Fair CURRENT FUNC. DEFICITS: Mobility, Balance, Safety Awareness, and Self-Care CURRENT / PREVIOUS ASSISTIVE DEVICES: Rolling Walker HISTORY OF FALLS. HAS THE PATIENT HAD TWO OR MORE FALLS IN THE PAST YEAR OR ANY FALL WITH INJURY IN T HE PAST YEAR?: Yes PRIOR SURGERY. DID THE PATIENT HAVE MAJOR SURGERY DURING THE 100 DAYS PRIOR TO ADMISSION?: No THERAPY NOTES FROM ACUTE CARE: Attached. SPECIAL NEEDS: - Safety Concerns Skin breakdown precautions needed due to skin breakdown risk PRECAUTIONS: - Posterior Hip Precaution No adduction across midline No external rotation No hip flexion >90 degrees No internal rotation No wheel chair propulsion - Weight Bearing Precaution WBAT right LE PATIENT NEEDS ACTIVE AND ONGOING THERAPEUTIC INTERVENTION OF MULTIPLE THERAPY DISCIPLINES, INCLUDING: - Dietary and Nutrition Adequate Nutrition. Nutritional Education. Nutritional Supplements. - Occupational Therapy Cognitive Retraining. Visual Perceptual Training. - Speech Therapy Cognitive Training. Expressive Language Skills. Memory Strategies. Receptive Language Skills. Speech Intelligibility Training. PATIENT NEEDS CLOSE MEDICAL SUPERVISION BY A REHABILITATION PHYSICIAN FOR: Coordination of Treatment Team PATIENT REQUIRES 24X7 REHAB NURSING FOR MEDICAL AND FUNCTIONAL MGT. OF THE FOLLOWING DEFICITS: Disease Management Medication Management Patient/Family Education Providing Safe Environment PATIENT REQUIRES INTENSIVE, COORDINATED INTERDISCIPLINARY APPROACH TO REHAB: Arranging Home Equipment/Services Discharge Planning Family Intervention/Training Configuration Developer/Case Management PATIENT REHAB POTENTIAL: Rema CARL is able and expected to receive 3 hours of individualized therapy daily on at le ast 5 of every 7 days Rema CARL's prognosis for significant practical improvement within a reasonable period of time appears Good Expected level of measurable improvement will be of a practical value to Rema CARL's funct ional capacity or adaptations to impairments Has a viable Discharge Plan Medically appropriate; condition is sufficiently stable to participate in intensive rehab program DISCHARGE PLAN: - Estimated Length of Stay (days) 14. - Consensus on plan Discharge plan has been discussed with primary caregiver. Patient/Family is in agreement with the monserrat n. Primary caregiver is in agreement with the plan. - Patient/Family Goals Return home independently. - Planned Living Setting Upon Discharge Home, to live with Family/Relatives. Transitional Living. RECOMMENDED CARE LEVEL: IRF RECOMMENDATION DETAILS: Recommended Admission to Comprehensive Rehabilitation Program to Increase Functional [place] PHYSICIANS REVIEW AND ADMISSION DETERMINATION Admit - Based on my review of the Pre-Admission Screening results, in my medical judgment and experie nce, I concur with the findings and recommend admission to [facility], as this patient requires an IRF level of care. SIGNATURE PANEL: Escalation Engineer - [electronically] signed by Isamar Naylor on 01/19/2021 at 08:58 (CDT) Escalation Engineer - [electronically] signed by Larry Owen PT on 01/19/2021 at 09:02 (CDT) Physician Reviewer - [electronically] signed by Dr. Shahram Foy on 01/19/2021 at 11:29 (CDT)
[2021-01-19] MEDS ORDERED: TRAMADOL HCL 50 MG TAB PO PRN (13:24)
[2021-01-19 13:39] LABS: Urine Appearance CLEAR (Clear); Urine Bilirubin NEGATIVE (Negative); Urine Blood NEGATIVE (Negative); Urine Color YELLOW (Yellow); Urine Glucose NEGATIVE (Negative); Urine Protein NEGATIVE (Negative); Urine pH 7.5 (5.0-7.0)
[2021-01-19 13:43] LABS: Urine Microscopic Reflex ORDER UMIC
[2021-01-19 14:02] LABS: Urine Bacteria <20 /HPF (<20); Urine RBC <5 /HPF (NONE SEEN); Urine Urothelial Cells <5 /HPF (NONE SEEN)
[2021-01-19] MEDS: TIMOLOL OPTH OPTH SCH (20:00)
[2021-01-19] MEDS: SYSTANE ULTRA EYE OPTH SCH (20:00)
[2021-01-19] MEDS: METOPROLOL TAR 50 MG TAB PO SCH (20:03)
[2021-01-19] MEDS: MELATONIN 3 MG TABLET PO PRN (20:03)
[2021-01-19] MEDS: LOSARTAN POTASSIUM 50 MG TABLET PO SCH (20:03)
[2021-01-20] MEDS: HYDROCODONE/APAP 10/325 TAB PO PRN ×3 (00:11→23:47)
[2021-01-20 06:31] LABS: Absolute Lymphocytes (CBC) 1.7 K/uL (0.7-4.9); Basophils % 0.9 % (0-1.3); Hematocrit 26.2 % (36.0-45.0); Lymphocytes % 24.1 % (15.3-44.8); MPV 9.1 fL (7.6-11.3); RBC Red Blood Cell Count 2.76 M/uL (3.86-4.86)
[2021-01-20] MEDS: LEVOTHYROXINE SOD 0.088 MG TAB PO SCH (06:45)
[2021-01-20 06:56] LABS: Albumin 2.5 g/dL (3.4-5.0); Magnesium 2.2 mg/dL (1.8-2.4); Potassium 5.3 mmol/L (3.5-5.1); Prealbumin 11.6 mg/dL (20-40)
[2021-01-20] MEDS: TIMOLOL OPTH OPTH SCH ×2 (07:04→20:00)
[2021-01-20] MEDS: LOSARTAN POTASSIUM 50 MG TABLET PO SCH (08:00)
[2021-01-20] MEDS ORDERED: ENOXAPARIN 40 MG/0.4 ML SQ SCH (08:00)
[2021-01-20] MEDS: SYSTANE ULTRA EYE OPTH SCH ×2 (08:00→20:00)
[2021-01-20] MEDS ORDERED: CALCIUM CARB 500MG/VIT D 200 IU TAB PO SCH (08:00)
[2021-01-20] MEDS ORDERED: TIMOLOL OPTH OPTH SCH ×2 (08:00)
[2021-01-20] MEDS: ASPIRIN 81 MG CHEWABLE TABLET PO SCH (08:35)
[2021-01-20] MEDS: MULTIVITAMIN TAB PO SCH (08:36)
[2021-01-20] MEDS: METOPROLOL TAR 50 MG TAB PO SCH ×2 (08:36→20:41)
[2021-01-20] MEDS: ROSUVASTATIN 10 MG TAB PO SCH (08:36)
--- NOTE | 2021-01-20 09:52 | R.HP ---
HISTORY AND PHYSICAL FACILITY: [facility] ENCOUNTER DATE AND TIME: 01/20/2021 09:49 (CDT) MR#: [id number] NAME MANOJ LE ADDRESS: [address] [place] [address] CITY: [place] [address] [address] PHONE: DATE OF : 1940 AGE: 81 SSN# [id number] GENDER: Female MARITAL STATUS PRE-HOSPITAL LIVING SETTING 01 - Home (private home/apt. board/care, assisted living, half-way, transitional living) PRE-HOSPITAL LIVING WITH Family/Relatives ENCOUNTER PHYSICIAN: Dr. Shahram Foy REFERRING DOCTOR: DATE OF ADMISSION: 01/19/2021 10:32 (CDT) REFERRING FACILITY [facility] HOME TYPE AND DETAILS: Type of home: single family house # of levels in the residence: 2 # of steps within the residence: 12 # of steps to enter the residence: 2 ADMISSION DIAGNOSIS: RIGHT HIP FX ONSET DATE: 01/09/2021 PRIMARY DIAGNOSIS-RELATED SURGERIES: BIPOLAR HIP ARTHROPLASTY HISTORY OF PRESENT ILLNESS (HPI): Pt. is a 81 yo Right-handed female. On 01/09/2021 she was admitted to [facility] with diagnosis RIGHT HIP FX. Her impairment category is Orthopaedic Disorders 08 - Unilateral Hip Fracture (08.11). Pre-morbidly, Pt. was independent/mod-I in Locomotion, Safety Awareness, Communication, and Self-Care ; and she had good Sphincter Control, Transfers Control, and Social Cognition. Currently, she has deficits of Locomotion, Social Cognition, Safety Awareness, Balance, Transfers Con trol, Sphincter Control, Self-Care, and Endurance. Pt. is now referred to [facility] for acute in-patient rehabilitation in order to maximize patient's functional independence in activities of daily living, strength, ROM, and mobi lity. Patient has realistic goal of being discharged at assistance level 7-Ind to reside at Home with Fami ly/Relatives. MEDICATION ALLERGIES: No Known Drug Allergies (NKDA) ENVIRONMENTAL ALLERGIES: - Substance Allergies None Known - Other Allergies None Known PAST MEDICAL HISTORY: HYPERTENSION HYPERLIPIDEMIA HYPOTHYROIDISM PAST SURGICAL HISTORY: CATARACT SURGERY THYROIDECTOMY COLONIC POLYP REMOVAL TONSILLECTOMY RIGHT KNEE ARTHROSCOPY SOCIAL HISTORY: - Home Living Family/Relatives REVIEW OF SYSTEMS: - Gen No Chills No Fatigue No Fever - Eyes No Double Vision No itchiness - ENMT No Difficulty Swallowing - CVS No Chest Discomfort No Chest Pain No Fatigue No Weight Gain - Resp No Cough No Shortness of Breath - GI Continent No Abdominal Pain No Constipation No Diarrhea - Continent No Kidney Pain No Painful Urination No Urinary Urgency - MSK No Joint Pain No Muscle Cramps No Stiffness - Skin No Itching No Rash No Suspicious Lesions - Neuro No Coordination Difficulty No Difficulty with Concentration No Memory Loss No Seizures No Weakness - Psych No Anxiety No Depression No HIV Exposure No Persistent Infections No Seasonal Allergies - Endo No Cold/Heat Intolerance No Excessive Hunger No Excessive Thirst No Excessive Urination PHYSICAL EXAM - Gen Alert and awake Lying in bed No apparent distress Oriented to: person, time, and place - Vital Signs Temperature: 97.3 F SBP/DBP: 147/70 Pulse: 62 Resp: 16 Vital signs stable, afebrile - CVS RRR VITAL SIGNS Temperature: 97.3 F SBP/DBP: 147/70 Pulse: 62 Resp: 16 Vital signs stable, afebrile NURSING: - Shower allowing shower - Skin care per protocol PRECAUTIONS: - Posterior Hip Precaution No adduction across midline No external rotation No hip flexion >90 degrees No internal rotation No wheel chair propulsion - Weight Bearing Precaution WBAT right LE ACTIVITIES OOB only with supervision QI SCORES: - Self-Care A. Eating 06-Independent B. Oral hygiene 03-Partial/moderate assistance C. Toileting hygiene 88-Not attempted due to medical condition or safety concerns E. Shower/bathe self 02-Substantial/maximal assistance F. Upper body dressing 03-Partial/moderate assistance G. Lower body dressing 02-Substantial/maximal assistance H. Putting on/taking off footwear 88-Not attempted due to medical condition or safety concerns - Mobility A. Roll left and right 03-Partial/moderate assistance B. Sit to lying 03-Partial/moderate assistance C. Lying to sitting on side of bed 02-Substantial/maximal assistance D. Sit to stand 02-Substantial/maximal assistance E. Chair/vsf-kr-iyvut transfer 02-Substantial/maximal assistance F. Toilet transfer 02-Substantial/maximal assistance G. Car transfer 88-Not attempted due to medical condition or safety concerns I. Walk 10 feet 02-Substantial/maximal assistance J. Walk 50 feet with two turns 88-Not attempted due to medical condition or safety concerns K. Walk 150 feet 88-Not attempted due to medical condition or safety concerns L. Walking 10 feet on uneven surfaces 88-Not attempted due to medical condition or safety concerns M. 1 step (curb) 88-Not attempted due to medical condition or safety concerns N. 4 steps 88-Not attempted due to medical condition or safety concerns O. 12 steps 88-Not attempted due to medical condition or safety concerns P. Picking up object 88-Not attempted due to medical condition or safety concerns R. Wheel 50 feet with two turns 88-Not attempted due to medical condition or safety concerns S. Wheel 150 feet 88-Not attempted due to medical condition or safety concerns - Bladder and Bowel Bladder continence Bowel continence - Endurance Good - Balance Fair - Safety Awareness Fair CURRENT FUNC. DEFICITS: Mobility, Balance, Safety Awareness, and Self-Care MEDICATIONS: - Other See attached MAR (Medication Administration Record) ASSESSMENT: Pt. is a 81 yo Right-handed female.On 01/09/2021 she was admitted to [facility] with aletha gnosis RIGHT HIP FX.Her impairment category is Orthopaedic Disorders 08 - Unilateral Hip Fracture (0 8.11).Pre-morbidly, Pt. was independent/mod-I in Locomotion, Safety Awareness, Communication, and [place] f-Care; and she had good Sphincter Control, Transfers Control, and Social Cognition.Currently, she thompson s deficits of Locomotion, Social Cognition, Safety Awareness, Balance, Transfers Control, Sphincter C ontrol, Self-Care, and Endurance.Pt. is now referred to [facility] for acute i n-patient rehabilitation in order to maximize patient's functional independence in activities of kali y living, strength, ROM, and mobility.- Rehab Goal Patient has realistic goal of being discharged at assistance level 7-Ind to reside at Home with Fami ly/Relatives. - Physical Therapy Decreased range of motion - to improve, our physical therapists will perform initial evaluation of pt 's status upon admission and devise an individualized program for increasing patient's Range of Motio n. Gait dysfunction - to improve, our physical therapists will perform initial evaluation of pt's status upon admission and devise an individualized program for Gait Training, and Wheel Chair mobility Inability to transfer - to improve, our physical therapists will perform initial evaluation of pt's s tatus upon admission and devise an individualized program for Bed mobility Need for home safety evaluation - to improve, our physical therapists will perform initial evaluation of pt's status upon admission and devise an individualized program for Home Evaluation Need in caregiver upon discharge - to improve, our physical therapists will perform initial evaluatio n of pt's status upon admission and devise an individualized program for Caregiver Training New precaution - to improve, our physical therapists will perform initial evaluation of pt's status u [place] admission and devise an individualized program for Patient precaution education Poor balance - to improve, our physical therapists will perform initial evaluation of pt's status upo n admission and devise an individualized program for Balance Training Poor endurance - to improve, our physical therapists will perform initial evaluation of pt's status u [place] admission and devise an individualized program for Endurance Training Achieving independence - to improve, our physical therapists will perform initial evaluation of pt's status upon admission and devise an individualized program for Community Reintegration Activities - Occupational Therapy ADL deficits - to improve, our occupation therapists will perform initial evaluation of pt's status u [place] admission and devise an individualized program for Bathing, Bed mobility, Community Reintegration , Cooking, Dressing, Eating, Fine Motor Skills, Grooming, Homemaking, Kitchen Mobility, Laundry, Isabelle ent Education, Safety Awareness, Splinting - Positioning, Transfers(Toilet, Tub, Shower), and Wheel C hair Management Cognitive deficits - to improve, our occupation therapists will perform initial evaluation of pt's st atus upon admission and devise an individualized program for Cognition - orientation Need for out of school hours care worker - to improve, our occupation therapists will perform initial evaluation of pt's s tatus upon admission and devise an individualized program for Caregiver Training MEDICAL PLAN: - Anterior Hip Precaution No abduction No active extension No adduction across midline No external rotation No hip flexion >90 degrees No internal rotation - Diet - Liquid Texture Start Regular - Tube Feed Start N/A - Diet Type Start Regular - Posterior Hip Precaution No adduction across midline No external rotation No hip flexion >90 degrees No internal rotation No wheel chair propulsion - Weight Bearing Precaution WBAT right LE - Skin care per protocol - Other See attached MAR (Medication Administration Record) - Diet - Solid Texture Regular - Shower shower DISCHARGE PLAN: - Estimated Length of Stay (days) 14. - Consensus on plan Discharge plan has been discussed with primary caregiver. Patient/Family is in agreement with the monserrat n. Primary caregiver is in agreement with the plan. - Patient/Family Goals Return home independently. - Planned Living Setting Upon Discharge Home, to live with Family/Relatives. Transitional Living. SIGNATURE PANEL: (CDT)
[2021-01-20] MEDS: CALCIUM CARB 500MG/VIT D 200 IU TAB PO SCH (14:23)
[2021-01-20] MEDS ORDERED: DOCUSATE NA/SENNA CONC 1 TAB PO PRN (14:50)
[2021-01-20] MEDS: MELATONIN 3 MG TABLET PO PRN (20:41)
[2021-01-21] MEDS: LEVOTHYROXINE SOD 0.088 MG TAB PO SCH (06:33)
[2021-01-21] MEDS: LOVENOX SQ SCH (06:34)
[2021-01-21 06:37] LABS: Absolute Lymphocytes (CBC) 2.2 K/uL (0.7-4.9); Basophils % 0.7 % (0-1.3); Hematocrit 25.6 % (36.0-45.0); Lymphocytes % 27.9 % (15.3-44.8); RBC Red Blood Cell Count 2.69 M/uL (3.86-4.86)
[2021-01-21 07:04] LABS: Potassium 4.7 mmol/L (3.5-5.1)
[2021-01-21] MEDS: TIMOLOL OPTH OPTH SCH ×2 (08:00→19:35)
[2021-01-21] MEDS: SYSTANE ULTRA EYE OPTH SCH ×2 (08:00→19:35)
[2021-01-21] MEDS: CALCIUM CARB 500MG/VIT D 200 IU TAB PO SCH (08:02)
[2021-01-21] MEDS: ROSUVASTATIN 10 MG TAB PO SCH (08:03)
[2021-01-21] MEDS: ASPIRIN 81 MG CHEWABLE TABLET PO SCH (08:03)
[2021-01-21] MEDS: FE SULF/FA/VIT B COMP & C TAB PO SCH (08:03)
[2021-01-21] MEDS: FERROUS SULFATE 325 MG TAB PO SCH (08:03)
[2021-01-21] MEDS: METOPROLOL TAR 50 MG TAB PO SCH ×2 (08:04→19:35)
[2021-01-21] MEDS: MULTIVITAMIN TAB PO SCH (08:04)
[2021-01-21] MEDS: HYDROCODONE/APAP 10/325 TAB PO PRN ×2 (08:06→23:52)
--- NOTE | 2021-01-21 08:55 | P.RH.PN ---
Estimated Length of Stay: 12 Expected Discharge Date: 01/30/21 Discharge Disposition Plan: Home Family Support: Yes Longterm Goal: Mobility Vital Signs: Last Vital Signs Temp 98.8 F 01/21/21 08:24 Pulse 60 01/21/21 08:24 Resp 14 01/21/21 08:24 BP 141/63 H 01/21/21 08:24 Pulse Ox 98 01/21/21 08:24 Laboratory: Laboratory Last Values WBC 7.90 K/uL (4.3-10.9) 01/21/21 06:21 RBC 2.69 M/uL (3.86-4.86) L 01/21/21 06:21 Hgb 8.6 g/dL (12.0-15.0) L 01/21/21 06:21 Hct 25.6 % (36.0-45.0) L 01/21/21 06:21 MCV 95.0 fL (80-100) 01/21/21 06:21 MCH 31.9 pg (27.0-35.0) 01/21/21 06:21 MCHC 33.5 g/dL (32.0-36.0) 01/21/21 06:21 RDW 13.3 % (12.1-15.2) 01/21/21 06:21 Plt Count 223 K/uL (152-406) 01/21/21 06:21 MPV 9.0 fL (7.6-11.3) 01/21/21 06:21 Neutrophils % 54.6 % (41.7-73.7) 01/21/21 06:21 Lymphocytes % 27.9 % (15.3-44.8) 01/21/21 06:21 Monocytes % 13.0 % (3.3-12.3) H 01/21/21 06:21 Eosinophils % 3.8 % (0-4.4) 01/21/21 06:21 Basophils % 0.7 % (0-1.3) 01/21/21 06:21 Absolute Neutrophils 4.3 K/uL (1.8-8.0) 01/21/21 06:21 Absolute Lymphocytes 2.2 K/uL (0.7-4.9) 01/21/21 06:21 Absolute Monocytes 1.0 K/uL (0.1-1.3) 01/21/21 06:21 Absolute Eosinophils 0.3 K/uL (0-0.5) 01/21/21 06:21 Absolute Basophils 0.1 K/uL (0-0.5) 01/21/21 06:21 Sodium 137 mmol/L (136-145) 01/21/21 06:21 Potassium 4.7 mmol/L (3.5-5.1) 01/21/21 06:21 Chloride 100 mmol/L (98-107) 01/21/21 06:21 Carbon Dioxide 32 mmol/L (21-32) 01/21/21 06:21 BUN 14 mg/dL (7-18) 01/21/21 06:21 Creatinine 0.76 mg/dL (0.55-1.3) 01/21/21 06:21 Estimated GFR 73 mL/min (=/>90) L 01/21/21 06:21 Glucose 106 mg/dL (74-106) 01/21/21 06:21 Calcium 7.2 mg/dL (8.5-10.1) L 01/21/21 06:21 Magnesium 2.2 mg/dL (1.8-2.4) 01/20/21 06:12 Albumin 2.5 g/dL (3.4-5.0) L 01/20/21 06:12 Prealbumin 11.6 mg/dL (20-40) L 01/20/21 06:12 Urine Color Yellow (Yellow) 01/19/21 13:33 Urine Appearance Clear (Clear) 01/19/21 13:33 Urine pH 7.5 (5.0-7.0) H 01/19/21 13:33 Ur Specific [place] 1.010 (1.005-1.030) 01/19/21 13:33 Glucose (UA)(Auto) Negative (Negative) 01/19/21 13:33 Urine Ketones Negative (Negative) 01/19/21 13:33 Urine Blood Negative (Negative) 01/19/21 13:33 Urine Nitrite Negative (Negative) 01/19/21 13:33 Urine Bilirubin Negative (Negative) 01/19/21 13:33 Urine Urobilinogen 1.0 mg/dL (0.2-1.0) 01/19/21 13:33 Ur Leukocyte Esterase Trace (Negative) H 01/19/21 13:33 Urine RBC <5 /HPF (NONE SEEN) 01/19/21 13:33 Urine WBC 5-10 /HPF (<5) H 01/19/21 13:33 Ur Squamous Epith Cells 5-10 /HPF (NONE SEEN) H 01/19/21 13:33 Ur Urothelial Cells <5 /HPF (NONE SEEN) 01/19/21 13:33 Urine Bacteria <20 /HPF (<20) 01/19/21 13:33 Urine Culture Reflexed Not needed 01/19/21 13:33 Urine Total Protein Negative (Negative) 01/19/21 13:33 SARS-CoV-2 RNA (RT-PCR) Negative (NEGATIVE) 01/19/21 15:15 Weight: 143 lb Within Defined Parameters: Yes Wound Present: No Right Hip Dressing Status: Dry & Intact Drain(s): No Drainage Amount: None Drainage Odor: None/Absent Closed Surgical Incision Present: Yes Right Hip Incision Description: Sutures Intact Incision Drainage Amount: None Negative Pressure Wound Therapy Present: No Physician Update: Patient looks well; doing well. Medical Issues: stable Pain Issues: minimal Nutritional Needs: 100% Education Needed: knows hip precautions well Functional Improvement: patient doing well; contact guard Speech Therapy Update: wnl Summary: Patient's care plan and termite control technician goals have been reviewed and revised as necessary. Please see the Rehabilitation Signature page for all necessary signatures.
[2021-01-21] MEDS: LIDOCAINE 4% PATCH TOP SCH (09:23)
[2021-01-21] MEDS: CRANBERRY FRUIT EXTRACT 200 MG CAP PO SCH (09:23)
[2021-01-21] MEDS ORDERED: BISACODYL 10 MG RECTAL SUPP PR PRN (10:13)
[2021-01-21] MEDS: ENSURE ENLIVE 237 ML CAN PO SCH (19:35)
[2021-01-21] MEDS: MELATONIN 3 MG TABLET PO PRN (19:35)
[2021-01-21] MEDS: JUVEN PACKET PO SCH (19:35)
[2021-01-22 05:33] VITALS: BMI 22.8
[2021-01-22] MEDS: LIDOCAINE 4% PATCH TOP SCH (06:37)
[2021-01-22] MEDS: LEVOTHYROXINE SOD 0.088 MG TAB PO SCH (06:37)
[2021-01-22] MEDS: LOVENOX SQ SCH (06:53)
[2021-01-22] MEDS: SYSTANE ULTRA EYE OPTH SCH ×2 (08:00→19:34)
[2021-01-22] MEDS: TIMOLOL OPTH OPTH SCH ×2 (08:00→19:34)
[2021-01-22] MEDS: HYDROCODONE/APAP 10/325 TAB PO PRN ×2 (08:11→23:03)
[2021-01-22] MEDS: CRANBERRY FRUIT EXTRACT 200 MG CAP PO SCH (08:12)
[2021-01-22] MEDS: ROSUVASTATIN 10 MG TAB PO SCH (08:13)
[2021-01-22] MEDS: CALCIUM CARB 500MG/VIT D 200 IU TAB PO SCH (08:13)
[2021-01-22] MEDS: FE SULF/FA/VIT B COMP & C TAB PO SCH (08:13)
[2021-01-22] MEDS: METOPROLOL TAR 50 MG TAB PO SCH ×2 (08:13→19:34)
[2021-01-22] MEDS: FERROUS SULFATE 325 MG TAB PO SCH (08:13)
[2021-01-22] MEDS: MULTIVITAMIN TAB PO SCH (08:13)
[2021-01-22] MEDS: ENSURE ENLIVE 237 ML CAN PO SCH ×2 (08:14→19:33)
[2021-01-22] MEDS: ASPIRIN 81 MG CHEWABLE TABLET PO SCH (08:14)
[2021-01-22] MEDS: JUVEN PACKET PO SCH ×2 (08:15→19:34)
[2021-01-22] MEDS: POLYETHYL GLY 3350 17 GM/DOSE PO PRN (11:16)
[2021-01-22] MEDS: MELATONIN 3 MG TABLET PO PRN (19:33)
[2021-01-23] MEDS: LIDOCAINE 4% PATCH TOP SCH (06:10)
[2021-01-23] MEDS: LEVOTHYROXINE SOD 0.088 MG TAB PO SCH (06:10)
[2021-01-23] MEDS: LOVENOX SQ SCH (06:23)
[2021-01-23] MEDS: SYSTANE ULTRA EYE OPTH SCH ×2 (08:00→19:35)
[2021-01-23] MEDS: TIMOLOL OPTH OPTH SCH ×2 (08:00→19:35)
[2021-01-23] MEDS: HYDROCODONE/APAP 10/325 TAB PO PRN ×2 (08:50→19:39)
[2021-01-23] MEDS: FE SULF/FA/VIT B COMP & C TAB PO SCH (08:51)
[2021-01-23] MEDS: MULTIVITAMIN TAB PO SCH (08:51)
[2021-01-23] MEDS: ASPIRIN 81 MG CHEWABLE TABLET PO SCH (08:51)
[2021-01-23] MEDS: ENSURE ENLIVE 237 ML CAN PO SCH ×2 (08:51→19:31)
[2021-01-23] MEDS: CRANBERRY FRUIT EXTRACT 200 MG CAP PO SCH (08:51)
[2021-01-23] MEDS: FERROUS SULFATE 325 MG TAB PO SCH (08:52)
[2021-01-23] MEDS: CALCIUM CARB 500MG/VIT D 200 IU TAB PO SCH (08:52)
[2021-01-23] MEDS: METOPROLOL TAR 50 MG TAB PO SCH ×2 (08:52→19:29)
[2021-01-23] MEDS: JUVEN PACKET PO SCH ×2 (08:52→19:31)
[2021-01-23] MEDS: ROSUVASTATIN 10 MG TAB PO SCH (08:52)
[2021-01-23] MEDS: MELATONIN 3 MG TABLET PO PRN (19:36)
[2021-01-24] MEDS: LEVOTHYROXINE SOD 0.088 MG TAB PO SCH (07:07)
[2021-01-24] MEDS: LOVENOX SQ SCH (07:17)
[2021-01-24] MEDS: TIMOLOL OPTH OPTH SCH ×2 (08:00→19:27)
[2021-01-24] MEDS: SYSTANE ULTRA EYE OPTH SCH ×2 (08:00→19:27)
[2021-01-24] MEDS: LIDOCAINE 4% PATCH TOP SCH (08:55)
[2021-01-24] MEDS: POLYETHYL GLY 3350 17 GM/DOSE PO PRN (08:55)
[2021-01-24] MEDS: CRANBERRY FRUIT EXTRACT 200 MG CAP PO SCH (08:56)
[2021-01-24] MEDS: FE SULF/FA/VIT B COMP & C TAB PO SCH (08:56)
[2021-01-24] MEDS: ROSUVASTATIN 10 MG TAB PO SCH (08:56)
[2021-01-24] MEDS: HYDROCODONE/APAP 10/325 TAB PO PRN (08:56)
[2021-01-24] MEDS: ASPIRIN 81 MG CHEWABLE TABLET PO SCH (08:57)
[2021-01-24] MEDS: MULTIVITAMIN TAB PO SCH (08:57)
[2021-01-24] MEDS: METOPROLOL TAR 50 MG TAB PO SCH ×2 (08:57→19:23)
[2021-01-24] MEDS: FERROUS SULFATE 325 MG TAB PO SCH (08:57)
[2021-01-24] MEDS: CALCIUM CARB 500MG/VIT D 200 IU TAB PO SCH (09:07)
[2021-01-24] MEDS: ENSURE ENLIVE 237 ML CAN PO SCH ×2 (09:07→19:27)
[2021-01-24] MEDS: JUVEN PACKET PO SCH ×2 (09:07→19:27)
[2021-01-24 09:10] LABS: Absolute Lymphocytes (CBC) 2.2 K/uL (0.7-4.9); Hematocrit 26.8 % (36.0-45.0); Lymphocytes % 25.7 % (15.3-44.8); MPV 9.4 fL (7.6-11.3); RBC Red Blood Cell Count 2.78 M/uL (3.86-4.86)
[2021-01-24 09:27] LABS: Potassium 5.2 mmol/L (3.5-5.1)
--- NOTE | 2021-01-24 17:10 | PAPE ---
POST ADMISSION PHYSICIAN EVALUATION PATIENT: [facility] MR# [id number] REFERRING DOCTOR EVALUATION DATE AND TIME 01/24/2021 17:08 (CDT) NAME MANOJ LE DATE OF 1940 AGE 81 PHONE SSN# [id number] GENDER female EVALUATING PHYSICIAN Dr. Baltazar Evans M.D. ADMISSION DIAGNOSIS: RIGHT HIP FX ONSET DATE 01/09/2021 POST-ADMISSION FUNCTIONAL/MEDICAL STATUS: - Bladder Same accident frequency: 7-Ind - No accidents in the past 7 days - Bowel Same accident frequency: 7-Ind - No accidents in the past 7 days - Walking Same score based on distance walked: 0(N/A) Same score based on distance walked: 1(<=50ft) - Wheelchair Same score based on distance traveled: 0(N/A) STATUS CHANGE EVALUATION: No change in Functional or Medical Status is identified compared with Pre-Admission screening. PATIENT NEEDS CLOSE MEDICAL SUPERVISION BY A REHABILITATION PHYSICIAN FOR: Coordination of Treatment Team PATIENT REQUIRES 24X7 REHAB NURSING FOR MEDICAL AND FUNCTIONAL MGT. OF THE FOLLOWING DEFICITS: Disease Management Medication Management Patient/Family Education Providing Safe Environment PATIENT REQUIRES INTENSIVE, COORDINATED INTERDISCIPLINARY APPROACH TO REHAB: Arranging Home Equipment/Services Discharge Planning Family Intervention/Training Payroll Clerk/Case Management LIST OF IDENTIFIED AND POTENTIAL PROBLEMS: Alteration in leisure activities Bladder, Incontinence Bowel, Incontinence Infection, Actual or Potential Mobility Impaired Pain, Alteration in Comfort Self Care Deficit Skin Integrity, Actual or Potential Urinary Tract Infection (UTI), Actual or Potential INTERVENTIONS - Anoxic Brain Injury Fall prevention education. PATIENT COULD BE AT RISK FOR COMPLICATIONS FROM ADVERSE MEDICAL CONDITIONS DUE TO HIS/HER COMORBIDITI ES AND THE RIGORS OF THE INTENSIVE REHABILLITATION PROGRAM. METHODS OR INTERVENTIONS TO AVOID COMPLIC ATIONS INCLUDE: - Infection Clinical staff to assess and manage the signs and symptoms of infection including fever, redness, war mth, etc. - Urinary Tract Infection - Falls Patient will be evaluated for Fall Precautions and will be placed on Fall Precautions as indicated pe r protocol. - Skin Breakdown Nursing will assess skin daily using assessment tool and will place on Skin Breakdown Precautions as indicated per protocol. - Pain Clinical staff may employ non-medication methods such as massage, distraction, decrease stimulus, etc . as needed. Clinical staff will assess patient's pain level every shift per protocol to assess and e nsure pain management effectiveness. Medications will be given and the pain level re-assessed. PRELIMINARY PLAN OF CARE: - Physical Therapy Patient needs Physical Therapy for a daily minimum of 1.5 hours at least 5 out of 7 days, to improve: Mobility, Strengthening, Transfers, Stretching, ROM, Endurance, Ability to manage stairs, Gait, and Balance. - Rehabilitation Nursing Patient requires 24x7 Rehabilitation Nursing for: Pain Issues, Identifying and preventing risk factor s, Monitoring and reporting current medical conditions, Assisting with ambulation and transfer, Cris ting with all ADL-s, Teaching patients about disease process and medications, Family teaching, Provid ing safe environment, Bowel and Bladder Issues, Skin Integrity, and Medication Management. Patient needs Payroll Clerk and/or Case Management for: Discharge Planning, Arranging Home Equipmen t or Services, and Family Interventions. - Dietary and Nutrition Services Patient needs Dietary and Nutrition Services for: Adequate Nutrition, Nutritional Supplements, and Nu tritional Education. - Occupational Therapy Patient needs Occupational Therapy for a daily minimum of 1.5 hours at least 5 out of 7 days, to impr ove Activities of Daily Living, including: Eating, Grooming, Bathing, Dressing, Toileting, Toilet Tra nsfers, Community Reintegration, Higher functional activities, Adaptive Equipment, Splinting, Househo ld Tasks, and Other activities as determined. QI SCORES: - Self-Care A. Eating 06-Independent B. Oral hygiene 03-Partial/moderate assistance C. Toileting hygiene 88-Not attempted due to medical condition or safety concerns E. Shower/bathe self 02-Substantial/maximal assistance F. Upper body dressing 03-Partial/moderate assistance G. Lower body dressing 02-Substantial/maximal assistance H. Putting on/taking off footwear 88-Not attempted due to medical condition or safety concerns - Mobility A. Roll left and right 03-Partial/moderate assistance B. Sit to lying 03-Partial/moderate assistance C. Lying to sitting on side of bed 02-Substantial/maximal assistance D. Sit to stand 02-Substantial/maximal assistance E. Chair/bsh-hu-rmiuy transfer 02-Substantial/maximal assistance F. Toilet transfer 02-Substantial/maximal assistance G. Car transfer 88-Not attempted due to medical condition or safety concerns I. Walk 10 feet 02-Substantial/maximal assistance J. Walk 50 feet with two turns 88-Not attempted due to medical condition or safety concerns K. Walk 150 feet 88-Not attempted due to medical condition or safety concerns L. Walking 10 feet on uneven surfaces 88-Not attempted due to medical condition or safety concerns M. 1 step (curb) 88-Not attempted due to medical condition or safety concerns N. 4 steps 88-Not attempted due to medical condition or safety concerns O. 12 steps 88-Not attempted due to medical condition or safety concerns P. Picking up object 88-Not attempted due to medical condition or safety concerns R. Wheel 50 feet with two turns 88-Not attempted due to medical condition or safety concerns S. Wheel 150 feet 88-Not attempted due to medical condition or safety concerns - Bladder and Bowel Bladder continence Bowel continence - Endurance Good - Balance Fair - Safety Awareness Fair POTENTIAL FUNCTIONAL GOALS FOR PATIENT TO ACHIEVE BY DISCHARGE: - Safety Precaution Patient will remain free from falls or injury at time of discharge. - Bed Mobility Patient will perform bed mobility at 4-Lauro level of assistance. - Transfers Patient will complete transfers from bed to chair at 4-Lauro level of assistance. - Mobility Patient will ambulate 150 ft with 4-Lauro level of assistance with RW. PATIENT REHAB POTENTIAL Rema CARL is able and expected to receive 3 hours of individualized therapy daily on at le ast 5 of every 7 days Rema CARL's prognosis for significant practical improvement within a reasonable period of time appears Good Expected level of measurable improvement will be of a practical value to Rema CARL's funct ional capacity or adaptations to impairments Has a viable Discharge Plan Medically appropriate; condition is sufficiently stable to participate in intensive rehab program DISCHARGE PLAN: - Estimated Length of Stay (days) 14. - Consensus on plan Discharge plan has been discussed with primary caregiver. Patient/Family is in agreement with the monserrat n. Primary caregiver is in agreement with the plan. - Patient/Family Goals Return home independently. - Planned Living Setting Upon Discharge Home, to live with Family/Relatives. Transitional Living. CONCLUSION ON REHABILITATION NECESSITY: I have evaluated patient's pre-admission functional status and, comparing it to the patient's post-ad mission functional status now, I conclude that the pre-admission assessment was accurate. Patient's c ondition on admission supports the medical necessity of admission to [facility]. It is safe to proceed with patient's therapy program. SIGNATURE PANEL: (CDT)
--- NOTE | 2021-01-24 17:15 | R.PN ---
PROGRESS NOTES ENCOUNTER DATE AND TIME: 01/24/2021 17:08 (CDT) NAME MANOJ LE DATE OF : 1940 DATE OF ADMISSION: 01/19/2021 10:32 (CDT) RIGHT HIP FXCHIEF COMPLAINT: Traumatic right hip fracture SUBJECTIVE: Pt denied any depression. Pt denied any Shortness of Breath. VITAL SIGNS Temperature: 98.3 F SBP/DBP: 140/55 Pulse: 63 Resp: 15 MEDICATION ALLERGIES: No Known Drug Allergies (NKDA) ENVIRONMENTAL ALLERGIES: - Substance Allergies None Known - Other Allergies None Known NURSING: - Shower allowing shower - Skin care per protocol PRECAUTIONS: - Posterior Hip Precaution No adduction across midline No external rotation No hip flexion >90 degrees No internal rotation No wheel chair propulsion - Weight Bearing Precaution WBAT right LE ACTIVITIES OOB only with supervision THERAPIES: - Dietary and Nutrition Adequate Nutrition. Nutritional Education. Nutritional Supplements. - Occupational Therapy Cognitive Retraining. Visual Perceptual Training. - Speech Therapy Cognitive Training. Expressive Language Skills. Memory Strategies. Receptive Language Skills. Speech Intelligibility Training. PHYSICAL EXAM - Gen Alert and awake Lying in bed No apparent distress Oriented to: person, time, and place - Skin No skin breakdown. No abnormalities - Eyes No abnormalities - ENMT No abnormalities - Neck No abnormalities No cervical adenopathy - CVS RRR - Chest No abnormalities - Resp No crackles - Abd + bowel sounds - GI Soft Deferred - No abnormalities - Ext Right hip surgical site has good hemostasis. - MSK 4+/5 weakness in right lower extremity - Neuro 4/5 strength right lower extremity. - Psych No abnormalities ASSESSMENT: Pt. is a 81 yo Right-handed female.On 01/09/2021 she was admitted to [facility] with aletha gnosis RIGHT HIP FX.Her impairment category is Orthopaedic Disorders 08 - Unilateral Hip Fracture (0 8.11).Pre-morbidly, Pt. was independent/mod-I in Locomotion, Safety Awareness, Communication, and Kori f-Care; and she had good Sphincter Control, Transfers Control, and Social Cognition.Currently, she thompson s deficits of Locomotion, Social Cognition, Safety Awareness, Balance, Transfers Control, Sphincter C ontrol, Self-Care, and Endurance.Pt. is now referred to [facility] for acute i n-patient rehabilitation in order to maximize patient's functional independence in activities of kali y living, strength, ROM, and mobility.- Rehab Goal Patient has realistic goal of being discharged at assistance level 7-Ind to reside at Home with Fami ly/Relatives. MDM/PLAN: - Physical Therapy Decreased range of motion - to improve, our physical therapists will perform initial evaluation of p t's status upon admission and devise an individualized program for increasing patient's Range of Ken on. Gait dysfunction - to improve, our physical therapists will perform initial evaluation of pt's statu s upon admission and devise an individualized program for Gait Training, and Wheel Chair mobility Inability to transfer - to improve, our physical therapists will perform initial evaluation of pt's status upon admission and devise an individualized program for Bed mobility Need for home safety evaluation - to improve, our physical therapists will perform initial evaluatio n of pt's status upon admission and devise an individualized program for Home Evaluation Need in caregiver upon discharge - to improve, our physical therapists will perform initial evaluati on of pt's status upon admission and devise an individualized program for Caregiver Training New precaution - to improve, our physical therapists will perform initial evaluation of pt's status upon admission and devise an individualized program for Patient precaution education Poor balance - to improve, our physical therapists will perform initial evaluation of pt's status up on admission and devise an individualized program for Balance Training Poor endurance - to improve, our physical therapists will perform initial evaluation of pt's status upon admission and devise an individualized program for Endurance Training Achieving independence - to improve, our physical therapists will perform initial evaluation of pt's status upon admission and devise an individualized program for Community Reintegration Activities - Occupational Therapy ADL deficits - to improve, our occupation therapists will perform initial evaluation of pt's status upon admission and devise an individualized program for Bathing, Bed mobility, Community Reintegratio n, Cooking, Dressing, Eating, Fine Motor Skills, Grooming, Homemaking, Kitchen Mobility, Laundry, Pat ient Education, Safety Awareness, Splinting - Positioning, Transfers(Toilet, Tub, Shower), and Wheel Chair Management Cognitive deficits - to improve, our occupation therapists will perform initial evaluation of pt's s tatus upon admission and devise an individualized program for Cognition - orientation Need for assistant child care teacher - to improve, our occupation therapists will perform initial evaluation of pt's status upon admission and devise an individualized program for Caregiver Training - Other See attached MAR (Medication Administration Record) - Anterior Hip Precaution No abduction No active extension No adduction across midline No external rotation No hip flexion >90 degrees No internal rotation - Diet - Liquid Texture Continue Regular - Tube Feed Continue N/A - Diet Type Continue Regular - Posterior Hip Precaution No adduction across midline No external rotation No hip flexion >90 degrees No internal rotation No wheel chair propulsion - Weight Bearing Precaution WBAT right LE - Skin care per protocol - Diet - Solid Texture Continue Regular - Shower allowing shower FUNCTIONAL STATUS: UPDATED AT WEEKLY TEAM CONFERENCE - Bladder Same accident frequency: 7-Ind - No accidents in the past 7 days - Bowel Same accident frequency: 7-Ind - No accidents in the past 7 days - Walking Same score based on distance walked: 0(N/A) Same score based on distance walked: 1(<=50ft) - Wheelchair Same score based on distance traveled: 0(N/A) FUNCTIONAL STATUS: - Self-Care A. Eating Ind B. Grooming Tahmina C. Bathing Lauro D. Dressing - Upper Tahmina E. Dressing - Lower Lauro F. Toileting Lauro - Sphincter Control G. Bladder control Tahmina H. Bowel control Tahmina - Transfers Control I. Bed/Chair/Wheelchair sup J. Toilet Lauro K. Tub/Shower modA - Locomotion L. Walk/Wheelchair (B) sup M. Stairs modA - Communication N. Comprehension (B) Tahmina O. Expression (B) Tahmina - Social Cognition P. Social Interaction Tahmina Q. Problem Solving sup R. Memory Tahmina - Endurance Good - Balance Fair - Safety Awareness Good QI SCORES: - Self-Care A. Eating 06-Independent B. Oral hygiene 03-Partial/moderate assistance C. Toileting hygiene 88-Not attempted due to medical condition or safety concerns E. Shower/bathe self 02-Substantial/maximal assistance F. Upper body dressing 03-Partial/moderate assistance G. Lower body dressing 02-Substantial/maximal assistance H. Putting on/taking off footwear 88-Not attempted due to medical condition or safety concerns - Mobility A. Roll left and right 03-Partial/moderate assistance B. Sit to lying 03-Partial/moderate assistance C. Lying to sitting on side of bed 02-Substantial/maximal assistance D. Sit to stand 02-Substantial/maximal assistance E. Chair/ssb-mn-wedfr transfer 02-Substantial/maximal assistance F. Toilet transfer 02-Substantial/maximal assistance G. Car transfer 88-Not attempted due to medical condition or safety concerns I. Walk 10 feet 02-Substantial/maximal assistance J. Walk 50 feet with two turns 88-Not attempted due to medical condition or safety concerns K. Walk 150 feet 88-Not attempted due to medical condition or safety concerns L. Walking 10 feet on uneven surfaces 88-Not attempted due to medical condition or safety concerns M. 1 step (curb) 88-Not attempted due to medical condition or safety concerns N. 4 steps 88-Not attempted due to medical condition or safety concerns O. 12 steps 88-Not attempted due to medical condition or safety concerns P. Picking up object 88-Not attempted due to medical condition or safety concerns R. Wheel 50 feet with two turns 88-Not attempted due to medical condition or safety concerns S. Wheel 150 feet 88-Not attempted due to medical condition or safety concerns - Bladder and Bowel Bladder continence Bowel continence - Endurance Good - Balance Fair - Safety Awareness Fair CURRENT [facility]. DEFICITS: Mobility, Balance, Safety Awareness, and Self-Care SIGNATURE PANEL: (CDT)
[2021-01-24] MEDS: MELATONIN 3 MG TABLET PO PRN (19:23)
[2021-01-25] MEDS: LOVENOX SQ SCH (06:54)
[2021-01-25] MEDS: LEVOTHYROXINE SOD 0.088 MG TAB PO SCH (06:55)
[2021-01-25] MEDS: LIDOCAINE 4% PATCH TOP SCH (08:14)
[2021-01-25] MEDS: TIMOLOL OPTH OPTH SCH ×2 (08:15→20:20)
[2021-01-25] MEDS: SYSTANE ULTRA EYE OPTH SCH ×2 (08:15→20:20)
[2021-01-25] MEDS: METOPROLOL TAR 50 MG TAB PO SCH ×2 (08:16→20:19)
[2021-01-25] MEDS: CRANBERRY FRUIT EXTRACT 200 MG CAP PO SCH (08:16)
[2021-01-25] MEDS: FE SULF/FA/VIT B COMP & C TAB PO SCH (08:17)
[2021-01-25] MEDS: MULTIVITAMIN TAB PO SCH (08:17)
[2021-01-25] MEDS: CALCIUM CARB 500MG/VIT D 200 IU TAB PO SCH (08:18)
[2021-01-25] MEDS: ASPIRIN 81 MG CHEWABLE TABLET PO SCH (08:18)
[2021-01-25] MEDS: ROSUVASTATIN 10 MG TAB PO SCH (08:18)
[2021-01-25] MEDS: FERROUS SULFATE 325 MG TAB PO SCH (08:18)
[2021-01-25] MEDS: HYDROCODONE/APAP 10/325 TAB PO PRN (08:19)
[2021-01-25] MEDS: ENSURE ENLIVE 237 ML CAN PO SCH ×2 (09:00→20:20)
[2021-01-25] MEDS: JUVEN PACKET PO SCH ×2 (09:00→20:20)
--- NOTE | 2021-01-25 20:14 | R.PN ---
PROGRESS NOTES ENCOUNTER DATE AND TIME: 01/25/2021 20:10 (CDT) NAME MANOJ LE DATE OF : 1940 DATE OF ADMISSION: 01/19/2021 10:32 (CDT) RIGHT HIP FXCHIEF COMPLAINT: Traumatic right hip fracture SUBJECTIVE: Pt denied any depression. Pt denied any Shortness of Breath. Therapeutic exercises done with supervision. Hgb is low but improved to 9.0 from 8.6. Calcium is low. On calcium carbonate daily. VITAL SIGNS Temperature: 98.2 F SBP/DBP: 119/50 Pulse: 61 Resp: 15 MEDICATION ALLERGIES: No Known Drug Allergies (NKDA) ENVIRONMENTAL ALLERGIES: - Substance Allergies None Known - Other Allergies None Known NURSING: - Shower allowing shower - Skin care per protocol PRECAUTIONS: - Posterior Hip Precaution No adduction across midline No external rotation No hip flexion >90 degrees No internal rotation No wheel chair propulsion - Weight Bearing Precaution WBAT right LE ACTIVITIES OOB only with supervision THERAPIES: - Dietary and Nutrition Adequate Nutrition. Nutritional Education. Nutritional Supplements. - Occupational Therapy Cognitive Retraining. Visual Perceptual Training. - Speech Therapy Cognitive Training. Expressive Language Skills. Memory Strategies. Receptive Language Skills. Speech Intelligibility Training. PHYSICAL EXAM - Gen Alert and awake Lying in bed No apparent distress Oriented to: person, time, and place - Skin No skin breakdown. No abnormalities - Eyes No abnormalities - ENMT No abnormalities - Neck No abnormalities No cervical adenopathy - CVS RRR - Chest No abnormalities - Resp No crackles - Abd + bowel sounds - GI Soft Deferred - No abnormalities - Ext Right hip surgical site has good hemostasis. - MSK 4+/5 weakness in right lower extremity - Neuro 4/5 strength right lower extremity. - Psych No abnormalities ASSESSMENT: Pt. is a 81 yo Right-handed female.On 01/09/2021 she was admitted to [facility] with aletha gnosis RIGHT HIP FX.Her impairment category is Orthopaedic Disorders 08 - Unilateral Hip Fracture (0 8.11).Pre-morbidly, Pt. was independent/mod-I in Locomotion, Safety Awareness, Communication, and Kori f-Care; and she had good Sphincter Control, Transfers Control, and Social Cognition.Currently, she thompson s deficits of Locomotion, Social Cognition, Safety Awareness, Balance, Transfers Control, Sphincter C ontrol, Self-Care, and Endurance.Pt. is now referred to [facility] for acute i n-patient rehabilitation in order to maximize patient's functional independence in activities of kali y living, strength, ROM, and mobility.- Rehab Goal Patient has realistic goal of being discharged at assistance level 7-Ind to reside at Home with Fami ly/Relatives. MDM/PLAN: - Physical Therapy Decreased range of motion - to improve, our physical therapists will perform initial evaluation of p t's status upon admission and devise an individualized program for increasing patient's Range of Ken on. Gait dysfunction - to improve, our physical therapists will perform initial evaluation of pt's statu s upon admission and devise an individualized program for Gait Training, and Wheel Chair mobility Inability to transfer - to improve, our physical therapists will perform initial evaluation of pt's status upon admission and devise an individualized program for Bed mobility Need for home safety evaluation - to improve, our physical therapists will perform initial evaluatio n of pt's status upon admission and devise an individualized program for Home Evaluation Need in caregiver upon discharge - to improve, our physical therapists will perform initial evaluati on of pt's status upon admission and devise an individualized program for Caregiver Training New precaution - to improve, our physical therapists will perform initial evaluation of pt's status upon admission and devise an individualized program for Patient precaution education Poor balance - to improve, our physical therapists will perform initial evaluation of pt's status up on admission and devise an individualized program for Balance Training Poor endurance - to improve, our physical therapists will perform initial evaluation of pt's status upon admission and devise an individualized program for Endurance Training Achieving independence - to improve, our physical therapists will perform initial evaluation of pt's status upon admission and devise an individualized program for Community Reintegration Activities - Occupational Therapy ADL deficits - to improve, our occupation therapists will perform initial evaluation of pt's status upon admission and devise an individualized program for Bathing, Bed mobility, Community Reintegratio n, Cooking, Dressing, Eating, Fine Motor Skills, Grooming, Homemaking, Kitchen Mobility, Laundry, Pat ient Education, Safety Awareness, Splinting - Positioning, Transfers(Toilet, Tub, Shower), and Wheel Chair Management Cognitive deficits - to improve, our occupation therapists will perform initial evaluation of pt's s tatus upon admission and devise an individualized program for Cognition - orientation Need for healthcare recruiter - to improve, our occupation therapists will perform initial evaluation of pt's status upon admission and devise an individualized program for Caregiver Training - Other See attached MAR (Medication Administration Record) - Anterior Hip Precaution No abduction No active extension No adduction across midline No external rotation No hip flexion >90 degrees No internal rotation - Diet - Liquid Texture Continue Regular - Tube Feed Continue N/A - Diet Type Continue Regular - Posterior Hip Precaution No adduction across midline No external rotation No hip flexion >90 degrees No internal rotation No wheel chair propulsion - Weight Bearing Precaution WBAT right LE - Skin care per protocol - Diet - Solid Texture Continue Regular - Shower allowing shower FUNCTIONAL STATUS: UPDATED AT WEEKLY TEAM CONFERENCE - Bladder Same accident frequency: 7-Ind - No accidents in the past 7 days - Bowel Same accident frequency: 7-Ind - No accidents in the past 7 days - Walking Same score based on distance walked: 0(N/A) Same score based on distance walked: 1(<=50ft) - Wheelchair Same score based on distance traveled: 0(N/A) FUNCTIONAL STATUS: - Self-Care A. Eating Ind B. Grooming Tahmina C. Bathing Lauro D. Dressing - Upper Tahmina E. Dressing - Lower Lauro F. Toileting Lauro - Sphincter Control G. Bladder control Tahmina H. Bowel control Tahmina - Transfers Control I. Bed/Chair/Wheelchair sup J. Toilet Lauro K. Tub/Shower modA - Locomotion L. Walk/Wheelchair (B) sup M. Stairs modA - Communication N. Comprehension (B) Tahmina O. Expression (B) Tahmina - Social Cognition P. Social Interaction Tahmina Q. Problem Solving sup R. Memory Tahmina - Endurance Good - Balance Fair - Safety Awareness Good QI SCORES: - Self-Care A. Eating 06-Independent B. Oral hygiene 03-Partial/moderate assistance C. Toileting hygiene 88-Not attempted due to medical condition or safety concerns E. Shower/bathe self 02-Substantial/maximal assistance F. Upper body dressing 03-Partial/moderate assistance G. Lower body dressing 02-Substantial/maximal assistance H. Putting on/taking off footwear 88-Not attempted due to medical condition or safety concerns - Mobility A. Roll left and right 03-Partial/moderate assistance B. Sit to lying 03-Partial/moderate assistance C. Lying to sitting on side of bed 02-Substantial/maximal assistance D. Sit to stand 02-Substantial/maximal assistance E. Chair/[id number] transfer 02-Substantial/maximal assistance F. Toilet transfer 02-Substantial/maximal assistance G. Car transfer 88-Not attempted due to medical condition or safety concerns I. Walk 10 feet 02-Substantial/maximal assistance J. Walk 50 feet with two turns 88-Not attempted due to medical condition or safety concerns K. Walk 150 feet 88-Not attempted due to medical condition or safety concerns L. Walking 10 feet on uneven surfaces 88-Not attempted due to medical condition or safety concerns M. 1 step (curb) 88-Not attempted due to medical condition or safety concerns N. 4 steps 88-Not attempted due to medical condition or safety concerns O. 12 steps 88-Not attempted due to medical condition or safety concerns P. Picking up object 88-Not attempted due to medical condition or safety concerns R. Wheel 50 feet with two turns 88-Not attempted due to medical condition or safety concerns S. Wheel 150 feet 88-Not attempted due to medical condition or safety concerns - Bladder and Bowel Bladder continence Bowel continence - Endurance Good - Balance Fair - Safety Awareness Fair [facility]IC[facility]: Mobility, Balance, Safety Awareness, and Self-Care SIGNATURE PANEL: (CDT)
[2021-01-25] MEDS: MELATONIN 3 MG TABLET PO PRN (20:19)
[2021-01-26] MEDS: LOVENOX SQ SCH (06:18)
[2021-01-26] MEDS: LEVOTHYROXINE SOD 0.088 MG TAB PO SCH (06:18)
[2021-01-26] MEDS: HYDROCODONE/APAP 10/325 TAB PO PRN (08:15)
[2021-01-26] MEDS: FERROUS SULFATE 325 MG TAB PO SCH (08:16)
[2021-01-26] MEDS: CALCIUM CARB 500MG/VIT D 200 IU TAB PO SCH (08:16)
[2021-01-26] MEDS: METOPROLOL TAR 50 MG TAB PO SCH ×2 (08:16→19:27)
[2021-01-26] MEDS: ASPIRIN 81 MG CHEWABLE TABLET PO SCH (08:16)
[2021-01-26] MEDS: FE SULF/FA/VIT B COMP & C TAB PO SCH (08:16)
[2021-01-26] MEDS: ROSUVASTATIN 10 MG TAB PO SCH (08:16)
[2021-01-26] MEDS: JUVEN PACKET PO SCH ×2 (08:17→19:27)
[2021-01-26] MEDS: MULTIVITAMIN TAB PO SCH (08:17)
[2021-01-26] MEDS: ENSURE ENLIVE 237 ML CAN PO SCH ×2 (08:17→19:27)
[2021-01-26] MEDS: CRANBERRY FRUIT EXTRACT 200 MG CAP PO SCH (08:17)
[2021-01-26] MEDS: TIMOLOL OPTH OPTH SCH ×2 (08:18→19:28)
[2021-01-26] MEDS: SYSTANE ULTRA EYE OPTH SCH ×2 (08:18→19:28)
[2021-01-26] MEDS: LIDOCAINE 4% PATCH TOP SCH (09:14)
--- NOTE | 2021-01-26 12:08 | FAST ---
PT QI REPORT FORM ENCOUNTER DATE AND TIME: 01/26/2021 08:00 (CDT) NAME MANOJ LE DATE OF : 1940 DATE OF ADMISSION: 01/19/2021 10:32 (CDT) PHONE: AGE: 81 N# [id number] GENDER: Female ENCOUNTER PHYSICIAN: Dr. Baltazar Evans M.D. ADMISSION DIAGNOSIS: - Orthopaedic Disorders 08 - Unilateral Hip Fracture (01.26) RIGHT HIP FX. EATING: EATING - STEP 1: Does the patient complete the activity by him/herself with no assistance (physical, verbal/nonverbal cueing, setup/clean-up)? Yes. 1. [id number] ADMISSION PERFORMANCE: Independent CODE: 06 ORAL HYGIENE: ORAL HYGIENE - STEP 1: Does the patient complete the activity by him/herself with no assistance (physical, verbal/nonverbal cueing, setup/clean-up)? Yes. 1. [id number] ADMISSION PERFORMANCE: Independent CODE: 06 TOILETING HYGIENE: TOILETING HYGIENE - STEP 1: Does the patient complete the activity by him/herself with no assistance (physical, verbal/nonverbal cueing, setup/clean-up)? Yes. 1. [id number] ADMISSION PERFORMANCE: Independent CODE: 06 BATHING: SHOWER/BATHE SELF - STEP 1: Does the patient complete the activity by him/herself with no assistance (physical, verbal/nonverbal cueing, setup/clean-up)? No. SHOWER/BATHE SELF - STEP 2: Does the patient need only setup/clean-up assistance from one helper? No. SHOWER/BATHE SELF - STEP 3: Does the patient need only verbal/nonverbal cueing or touching/steadying/contact guard assistance fro m one helper? Yes. 1. [id number] ADMISSION PERFORMANCE: Supervision or touching assistance CODE: 04 DRESSING - UPPER BODY: DRESSING - UPPER BODY - STEP 1: Does the patient complete the activity by him/herself with no assistance (physical, verbal/nonverbal cueing, setup/clean-up)? Yes. 1. [id number] ADMISSION PERFORMANCE: Independent CODE: 06 DRESSING - LOWER BODY: DRESSING - LOWER BODY - STEP 1: Does the patient complete the activity by him/herself with no assistance (physical, verbal/nonverbal cueing, setup/clean-up)? No. DRESSING - LOWER BODY - STEP 2: Does the patient need only setup/clean-up assistance from one helper? No. DRESSING - LOWER BODY - STEP 3: Does the patient need only verbal/nonverbal cueing or touching/steadying/contact guard assistance fro m one helper? Yes. 1. [id number] ADMISSION PERFORMANCE: Supervision or touching assistance CODE: 04 PUTTING ON/TAKING OFF FOOTWEAR: FOOTWEAR - STEP 1: Does the patient complete the activity by him/herself with no assistance (physical, verbal/nonverbal cueing, setup/clean-up)? No. FOOTWEAR - STEP 2: Does the patient need only setup/clean-up assistance from one helper? No. FOOTWEAR - STEP 3: Does the patient need only verbal/nonverbal cueing or touching/steadying/contact guard assistance fro m one helper? Yes. 1. [id number] ADMISSION PERFORMANCE: Supervision or touching assistance CODE: 04 ROLL LEFT AND RIGHT: ROLL LEFT AND RIGHT - STEP 1: Does the patient complete the activity by him/herself with no assistance (physical, verbal/nonverbal cueing, setup/clean-up)? Yes. 1. [id number] ADMISSION PERFORMANCE: Independent CODE: 06 SIT TO LYING: SIT TO LYING - STEP 1: Does the patient complete the activity by him/herself with no assistance (physical, verbal/nonverbal cueing, setup/clean-up)? Yes. 1. [id number] ADMISSION PERFORMANCE: Independent CODE: 06 LYING TO SITTING: LYING TO SITTING ON SIDE OF BED - STEP 1: Does the patient complete the activity by him/herself with no assistance (physical, verbal/nonverbal cueing, setup/clean-up)? Yes. 1. [id number] ADMISSION PERFORMANCE: Independent CODE: 06 SIT TO STAND: SIT TO STAND - STEP 1: Does the patient complete the activity by him/herself with no assistance (physical, verbal/nonverbal cueing, setup/clean-up)? Yes. 1. [id number] ADMISSION PERFORMANCE: Independent CODE: 06 TRANSFERS: BED, CHAIR: CHAIR/[id number] TRANSFER - STEP 1: Does the patient complete the activity by him/herself with no assistance (physical, verbal/nonverbal cueing, setup/clean-up)? Yes. 1. [id number] ADMISSION PERFORMANCE: Independent CODE: 06 TRANSFER TOILET: TOILET TRANSFER - STEP 1: Does the patient complete the activity by him/herself with no assistance (physical, verbal/nonverbal cueing, setup/clean-up)? Yes. 1. [id number] ADMISSION PERFORMANCE: Independent CODE: 06 TRANSFERS: CAR: Not attempted due to environmental limitations (e.g., lack of equipment, weather constraints) CODE: 10 WALK 10 FEET: WALK 10 FEET - STEP 1: Does the patient complete the activity by him/herself with no assistance (physical, verbal/nonverbal cueing, setup/clean-up)? Yes. 1. [id number] ADMISSION PERFORMANCE: Independent CODE: 06 WALK 50 FEET: WALK 50 FEET - STEP 1: Does the patient complete the activity by him/herself with no assistance (physical, verbal/nonverbal cueing, setup/clean-up)? Yes. 1. [id number] ADMISSION PERFORMANCE: Independent CODE: 06 WALK 150 FEET: WALK 150 FEET - STEP 1: Does the patient complete the activity by him/herself with no assistance (physical, verbal/nonverbal cueing, setup/clean-up)? Yes. 1. [id number] ADMISSION PERFORMANCE: Independent CODE: 06 WALK 10 FEET UNEVEN: WALKING 10 FEET ON UNEVEN SURFACES - STEP 1: Does the patient complete the activity by him/herself with no assistance (physical, verbal/nonverbal cueing, setup/clean-up)? No. WALKING 10 FEET ON UNEVEN SURFACES - STEP 2: Does the patient need only setup/clean-up assistance from one helper? No. WALKING 10 FEET ON UNEVEN SURFACES - STEP 3: Does the patient need only verbal/nonverbal cueing or touching/steadying/contact guard assistance fro m one helper? Yes. 1. [id number] ADMISSION PERFORMANCE: Supervision or touching assistance CODE: 04 1 STEP (CURB): 1 STEP CURB - STEP 1: Does the patient complete the activity by him/herself with no assistance (physical, verbal/nonverbal cueing, setup/clean-up)? Yes. 1. [id number] ADMISSION PERFORMANCE: Independent CODE: 06 4 STEPS: 4 STEPS - STEP 1: Does the patient complete the activity by him/herself with no assistance (physical, verbal/nonverbal cueing, setup/clean-up)? Yes. 1. [id number] ADMISSION PERFORMANCE: Independent CODE: 06 12 STEPS: 12 STEPS - STEP 1: Does the patient complete the activity by him/herself with no assistance (physical, verbal/nonverbal cueing, setup/clean-up)? Yes. 1. [id number] ADMISSION PERFORMANCE: Independent CODE: 06 PICKING UP OBJECT: PICKING UP OBJECT - STEP 1: Does the patient complete the activity by him/herself with no assistance (physical, verbal/nonverbal cueing, setup/clean-up)? Yes. 1. [id number] ADMISSION PERFORMANCE: Independent CODE: 06 DOES THE PATIENT USE A WHEELCHAIR/SCOOTER? Q1. DOES THE PATIENT USE A WHEELCHAIR/SCOOTER?: No CODE: 0 INDICATE THE TYPE OF WHEELCHAIR/SCOOTER USED: CODE: EXPR INDICATE THE TYPE OF WHEELCHAIR/SCOOTER USED: CODE: EXPR BLADDER AND BOWEL: H350. BLADDER CONTINENCE (3-DAY ASSESSMENT PERIOD): Stress incontinence only CODE: 1 H400. BOWEL CONTINENCE (3-DAY ASSESSMENT PERIOD): Always continent CODE: 0 SIGNATURE PANEL: The following modified sections: 1. [id number] Admission Performance, 1. [id number] Admission Performance, 1. [id number] Admission Performance, 1. [id number] Admission Performance, 1. [id number] Admission Performance, 1. [id number] Admission Performance, 1. [id number] Admission Performance, 1. [id number] Admission Performance , 1. [id number] Admission Performance, 1. [id number] Admission Performance, 1. [id number] Admission Performanc e, 1. [id number] Admission Performance, 1. [id number] Admission Performance, 1. [id number] Admission Performan ce, Q1. Does the patient use a wheelchair/scooter?, 1. [id number] Admission Performance, 1. [id number] Admi ssion Performance, 1. [id number] Admission Performance, 1. [id number] Admission Performance, 1. [id number] Adm ission Performance, 1. [id number] Admission Performance, 1. [id number] Admission Performance, H350. Bladder Continence (3-day assessment period), H400. Bowel Continence (3-day assessment period), H350. Bladde r Continence (3-day assessment period) were [electronically] signed by Larry Owen PT on Sun 12:07:48 GMT-0500 (Central Daylight Time)
--- NOTE | 2021-01-26 17:43 | R.PN ---
PROGRESS NOTES ENCOUNTER DATE AND TIME: 01/26/2021 17:29 (CDT) NAME MANOJ LE DATE OF : 1940 DATE OF ADMISSION: 01/19/2021 10:32 (CDT) RIGHT HIP FXCHIEF COMPLAINT: Traumatic right hip fracture SUBJECTIVE: Pt denied any depression. Pt denied any Shortness of Breath. Therapeutic exercises done with supervision. Hgb is low but improved to 9.0 from 8.6. Calcium is low. On calcium carbonate daily. Ambulated 750' with a rolling walker, up and down 15 steps and self-propelled wheelchair 250' with mo dified independence. VITAL SIGNS Temperature: 97.6 F SBP/DBP: 129/68 Pulse: 64 Resp: 16 MEDICATION ALLERGIES: No Known Drug Allergies (NKDA) ENVIRONMENTAL ALLERGIES: - Substance Allergies None Known - Other Allergies None Known NURSING: - Shower allowing shower - Skin care per protocol PRECAUTIONS: - Posterior Hip Precaution No adduction across midline No external rotation No hip flexion >90 degrees No internal rotation No wheel chair propulsion - Weight Bearing Precaution WBAT right LE ACTIVITIES OOB only with supervision THERAPIES: - Dietary and Nutrition Adequate Nutrition. Nutritional Education. Nutritional Supplements. - Occupational Therapy Cognitive Retraining. Visual Perceptual Training. - Speech Therapy Cognitive Training. Expressive Language Skills. Memory Strategies. Receptive Language Skills. Speech Intelligibility Training. PHYSICAL EXAM - Gen Alert and awake Lying in bed No apparent distress Oriented to: person, time, and place - Skin No skin breakdown. No abnormalities - Eyes No abnormalities - ENMT No abnormalities - Neck No abnormalities No cervical adenopathy - CVS RRR - Chest No abnormalities - Resp No crackles - Abd + bowel sounds - GI Soft Deferred - No abnormalities - Ext Right hip surgical site has good hemostasis. - MSK 4+/5 weakness in right lower extremity - Neuro 4/5 strength right lower extremity. - Psych No abnormalities ASSESSMENT: Pt. is a 81 yo Right-handed female.On 01/09/2021 she was admitted to [facility] with aletha gnosis RIGHT HIP FX.Her impairment category is Orthopaedic Disorders 08 - Unilateral Hip Fracture (0 8.11).Pre-morbidly, Pt. was independent/mod-I in Locomotion, Safety Awareness, Communication, and Kori f-Care; and she had good Sphincter Control, Transfers Control, and Social Cognition.Currently, she thompson s deficits of Locomotion, Social Cognition, Safety Awareness, Balance, Transfers Control, Sphincter C ontrol, Self-Care, and Endurance.Pt. is now referred to [facility] for acute i n-patient rehabilitation in order to maximize patient's functional independence in activities of kali y living, strength, ROM, and mobility.- Rehab Goal Patient has realistic goal of being discharged at assistance level 7-Ind to reside at Home with Fami ly/Relatives. MDM/PLAN: - Physical Therapy Decreased range of motion - to improve, our physical therapists will perform initial evaluation of p t's status upon admission and devise an individualized program for increasing patient's Range of Ken on. Gait dysfunction - to improve, our physical therapists will perform initial evaluation of pt's statu s upon admission and devise an individualized program for Gait Training, and Wheel Chair mobility Inability to transfer - to improve, our physical therapists will perform initial evaluation of pt's status upon admission and devise an individualized program for Bed mobility Need for home safety evaluation - to improve, our physical therapists will perform initial evaluatio n of pt's status upon admission and devise an individualized program for Home Evaluation Need in caregiver upon discharge - to improve, our physical therapists will perform initial evaluati on of pt's status upon admission and devise an individualized program for Caregiver Training New precaution - to improve, our physical therapists will perform initial evaluation of pt's status upon admission and devise an individualized program for Patient precaution education Poor balance - to improve, our physical therapists will perform initial evaluation of pt's status up on admission and devise an individualized program for Balance Training Poor endurance - to improve, our physical therapists will perform initial evaluation of pt's status upon admission and devise an individualized program for Endurance Training Achieving independence - to improve, our physical therapists will perform initial evaluation of pt's status upon admission and devise an individualized program for Community Reintegration Activities - Occupational Therapy ADL deficits - to improve, our occupation therapists will perform initial evaluation of pt's status upon admission and devise an individualized program for Bathing, Bed mobility, Community Reintegratio n, Cooking, Dressing, Eating, Fine Motor Skills, Grooming, Homemaking, Kitchen Mobility, Laundry, Pat ient Education, Safety Awareness, Splinting - Positioning, Transfers(Toilet, Tub, Shower), and Wheel Chair Management Cognitive deficits - to improve, our occupation therapists will perform initial evaluation of pt's s tatus upon admission and devise an individualized program for Cognition - orientation Need for md do resident urgent care - to improve, our occupation therapists will perform initial evaluation of pt's status upon admission and devise an individualized program for Caregiver Training - Other See attached MAR (Medication Administration Record) - Anterior Hip Precaution No abduction No active extension No adduction across midline No external rotation No hip flexion >90 degrees No internal rotation - Diet - Liquid Texture Continue Regular - Tube Feed Continue N/A - Diet Type Continue Regular - Posterior Hip Precaution No adduction across midline No external rotation No hip flexion >90 degrees No internal rotation No wheel chair propulsion - Weight Bearing Precaution WBAT right LE - Skin care per protocol - Diet - Solid Texture Continue Regular - Shower allowing shower FUNCTIONAL STATUS: UPDATED AT WEEKLY TEAM CONFERENCE - Bladder Same accident frequency: 7-Ind - No accidents in the past 7 days - Bowel Same accident frequency: 7-Ind - No accidents in the past 7 days - Walking Same score based on distance walked: 0(N/A) Same score based on distance walked: 1(<=50ft) - Wheelchair Same score based on distance traveled: 0(N/A) FUNCTIONAL STATUS: - Self-Care A. Eating Ind B. Grooming Tahmina C. Bathing Lauro D. Dressing - Upper Tahmina E. Dressing - Lower Lauro F. Toileting Lauro - Sphincter Control G. Bladder control Tahmina H. Bowel control Tahmina - Transfers Control I. Bed/Chair/Wheelchair sup J. Toilet Lauro K. Tub/Shower modA - Locomotion L. Walk/Wheelchair (B) sup M. Stairs modA - Communication N. Comprehension (B) Tahmina O. Expression (B) Tahmina - Social Cognition P. Social Interaction Tahmina Q. Problem Solving sup R. Memory Tahmina - Endurance Good - Balance Fair - Safety Awareness Good QI SCORES: - Self-Care A. Eating 06-Independent B. Oral hygiene 03-Partial/moderate assistance C. Toileting hygiene 88-Not attempted due to medical condition or safety concerns E. Shower/bathe self 02-Substantial/maximal assistance F. Upper body dressing 03-Partial/moderate assistance G. Lower body dressing 02-Substantial/maximal assistance H. Putting on/taking off footwear 88-Not attempted due to medical condition or safety concerns - Mobility A. Roll left and right 03-Partial/moderate assistance B. Sit to lying 03-Partial/moderate assistance C. Lying to sitting on side of bed 02-Substantial/maximal assistance D. Sit to stand 02-Substantial/maximal assistance E. Chair/[id number] transfer 02-Substantial/maximal assistance F. Toilet transfer 02-Substantial/maximal assistance G. Car transfer 88-Not attempted due to medical condition or safety concerns I. Walk 10 feet 02-Substantial/maximal assistance J. Walk 50 feet with two turns 88-Not attempted due to medical condition or safety concerns K. Walk 150 feet 88-Not attempted due to medical condition or safety concerns L. Walking 10 feet on uneven surfaces 88-Not attempted due to medical condition or safety concerns M. 1 step (curb) 88-Not attempted due to medical condition or safety concerns N. 4 steps 88-Not attempted due to medical condition or safety concerns O. 12 steps 88-Not attempted due to medical condition or safety concerns P. Picking up object 88-Not attempted due to medical condition or safety concerns R. Wheel 50 feet with two turns 88-Not attempted due to medical condition or safety concerns S. Wheel 150 feet 88-Not attempted due to medical condition or safety concerns - Bladder and Bowel Bladder continence Bowel continence - Endurance Good - Balance Fair - Safety Awareness Fair [facility] DEFICITS: Mobility, Balance, Safety Awareness, and Self-Care SIGNATURE PANEL: (CDT)
[2021-01-26] MEDS: MELATONIN 3 MG TABLET PO PRN (19:27)
[2021-01-27] MEDS: LEVOTHYROXINE SOD 0.088 MG TAB PO SCH (06:33)
[2021-01-27] MEDS: LOVENOX SQ SCH (06:34)
[2021-01-27] MEDS: LIDOCAINE 4% PATCH TOP SCH (06:34)
[2021-01-27 07:24] LABS: Absolute Lymphocytes (CBC) 1.9 K/uL (0.7-4.9); Basophils % 0.7 % (0-1.3); Hematocrit 28.5 % (36.0-45.0); RBC Red Blood Cell Count 2.94 M/uL (3.86-4.86)
[2021-01-27 07:42] LABS: Albumin 3.1 g/dL (3.4-5.0); Magnesium 2.3 mg/dL (1.8-2.4); Potassium 4.7 mmol/L (3.5-5.1); Prealbumin 20.3 mg/dL (20-40)
[2021-01-27] MEDS: MULTIVITAMIN TAB PO SCH (08:06)
[2021-01-27] MEDS: HYDROCODONE/APAP 10/325 TAB PO PRN (08:06)
[2021-01-27] MEDS: FE SULF/FA/VIT B COMP & C TAB PO SCH (08:07)
[2021-01-27] MEDS: CRANBERRY FRUIT EXTRACT 200 MG CAP PO SCH (08:07)
[2021-01-27] MEDS: FERROUS SULFATE 325 MG TAB PO SCH (08:07)
[2021-01-27] MEDS: ASPIRIN 81 MG CHEWABLE TABLET PO SCH (08:08)
[2021-01-27] MEDS: METOPROLOL TAR 50 MG TAB PO SCH ×2 (08:08→19:32)
[2021-01-27] MEDS: ENSURE ENLIVE 237 ML CAN PO SCH ×2 (08:08→19:33)
[2021-01-27] MEDS: ROSUVASTATIN 10 MG TAB PO SCH (08:08)
[2021-01-27] MEDS: JUVEN PACKET PO SCH ×2 (08:08→19:33)
[2021-01-27] MEDS: CALCIUM CARB 500MG/VIT D 200 IU TAB PO SCH (08:09)
[2021-01-27] MEDS: TIMOLOL OPTH OPTH SCH ×2 (08:09→19:33)
[2021-01-27] MEDS: SYSTANE ULTRA EYE OPTH SCH ×2 (08:09→19:33)
--- NOTE | 2021-01-27 17:18 | R.PN ---
PROGRESS NOTES ENCOUNTER DATE AND TIME: 01/27/2021 17:12 (CDT) NAME MANOJ LE DATE OF : 1940 DATE OF ADMISSION: 01/19/2021 10:32 (CDT) RIGHT HIP FXCHIEF COMPLAINT: Traumatic right hip fracture SUBJECTIVE: Pt denied any depression. Pt denied any Shortness of Breath. Therapeutic exercises done with supervision. Hgb improved to 9.6 from 9.0, prealbumin 20.3. Calcium is low. On calcium carbonate daily. Ambulated 1000' with a rolling walker, up and down 15 steps X 2 and self-propelled wheelchair 250' wi th modified independence. Repeat COVID-19 test is negative. VITAL SIGNS Temperature: 98.1 F SBP/DBP: 142/56 Pulse: 67 Resp: 16 MEDICATION ALLERGIES: No Known Drug Allergies (NKDA) ENVIRONMENTAL ALLERGIES: - Substance Allergies None Known - Other Allergies None Known NURSING: - Shower allowing shower - Skin care per protocol PRECAUTIONS: - Posterior Hip Precaution No adduction across midline No external rotation No hip flexion >90 degrees No internal rotation No wheel chair propulsion - Weight Bearing Precaution WBAT right LE ACTIVITIES OOB only with supervision THERAPIES: - Dietary and Nutrition Adequate Nutrition. Nutritional Education. Nutritional Supplements. - Occupational Therapy Cognitive Retraining. Visual Perceptual Training. - Speech Therapy Cognitive Training. Expressive Language Skills. Memory Strategies. Receptive Language Skills. Speech Intelligibility Training. PHYSICAL EXAM - Gen Alert and awake Lying in bed No apparent distress Oriented to: person, time, and place - Skin No skin breakdown. No abnormalities - Eyes No abnormalities - ENMT No abnormalities - Neck No abnormalities No cervical adenopathy - CVS RRR - Chest No abnormalities - Resp No crackles - Abd + bowel sounds - GI Soft Deferred - No abnormalities - Ext Right hip surgical site has good hemostasis. - MSK 4+/5 weakness in right lower extremity - Neuro 4/5 strength right lower extremity. - Psych No abnormalities ASSESSMENT: Pt. is a 81 yo Right-handed female.On 01/09/2021 she was admitted to [facility] with aletha gnosis RIGHT HIP FX.Her impairment category is Orthopaedic Disorders 08 - Unilateral Hip Fracture (0 8.11).Pre-morbidly, Pt. was independent/mod-I in Locomotion, Safety Awareness, Communication, and Kori f-Care; and she had good Sphincter Control, Transfers Control, and Social Cognition.Currently, she thompson s deficits of Locomotion, Social Cognition, Safety Awareness, Balance, Transfers Control, Sphincter C ontrol, Self-Care, and Endurance.Pt. is now referred to [facility] for acute i n-patient rehabilitation in order to maximize patient's functional independence in activities of kali y living, strength, ROM, and mobility.- Rehab Goal Patient has realistic goal of being discharged at assistance level 7-Ind to reside at Home with Fami ly/Relatives. MDM/PLAN: - Physical Therapy Decreased range of motion - to improve, our physical therapists will perform initial evaluation of p t's status upon admission and devise an individualized program for increasing patient's Range of Ken on. Gait dysfunction - to improve, our physical therapists will perform initial evaluation of pt's statu s upon admission and devise an individualized program for Gait Training, and Wheel Chair mobility Inability to transfer - to improve, our physical therapists will perform initial evaluation of pt's status upon admission and devise an individualized program for Bed mobility Need for home safety evaluation - to improve, our physical therapists will perform initial evaluatio n of pt's status upon admission and devise an individualized program for Home Evaluation Need in caregiver upon discharge - to improve, our physical therapists will perform initial evaluati on of pt's status upon admission and devise an individualized program for Caregiver Training New precaution - to improve, our physical therapists will perform initial evaluation of pt's status upon admission and devise an individualized program for Patient precaution education Poor balance - to improve, our physical therapists will perform initial evaluation of pt's status up on admission and devise an individualized program for Balance Training Poor endurance - to improve, our physical therapists will perform initial evaluation of pt's status upon admission and devise an individualized program for Endurance Training Achieving independence - to improve, our physical therapists will perform initial evaluation of pt's status upon admission and devise an individualized program for Community Reintegration Activities - Occupational Therapy ADL deficits - to improve, our occupation therapists will perform initial evaluation of pt's status upon admission and devise an individualized program for Bathing, Bed mobility, Community Reintegratio n, Cooking, Dressing, Eating, Fine Motor Skills, Grooming, Homemaking, Kitchen Mobility, Laundry, Pat ient Education, Safety Awareness, Splinting - Positioning, Transfers(Toilet, Tub, Shower), and Wheel Chair Management Cognitive deficits - to improve, our occupation therapists will perform initial evaluation of pt's s tatus upon admission and devise an individualized program for Cognition - orientation Need for direct care supervisor - to improve, our occupation therapists will perform initial evaluation of pt's status upon admission and devise an individualized program for Caregiver Training - Other See attached MAR (Medication Administration Record) - Anterior Hip Precaution No abduction No active extension No adduction across midline No external rotation No hip flexion >90 degrees No internal rotation - Diet - Liquid Texture Continue Regular - Tube Feed Continue N/A - Diet Type Continue Regular - Posterior Hip Precaution No adduction across midline No external rotation No hip flexion >90 degrees No internal rotation No wheel chair propulsion - Weight Bearing Precaution WBAT right LE - Skin care per protocol - Diet - Solid Texture Continue Regular - Shower allowing shower FUNCTIONAL STATUS: UPDATED AT WEEKLY TEAM CONFERENCE - Bladder Same accident frequency: 7-Ind - No accidents in the past 7 days - Bowel Same accident frequency: 7-Ind - No accidents in the past 7 days - Walking Same score based on distance walked: 0(N/A) Same score based on distance walked: 1(<=50ft) - Wheelchair Same score based on distance traveled: 0(N/A) FUNCTIONAL STATUS: - Self-Care A. Eating Ind B. Grooming Tahmina C. Bathing Lauro D. Dressing - Upper Tahmina E. Dressing - Lower Lauro F. Toileting Lauro - Sphincter Control G. Bladder control Tahmina H. Bowel control Tahmina - Transfers Control I. Bed/Chair/Wheelchair sup J. Toilet Lauro K. Tub/Shower modA - Locomotion L. Walk/Wheelchair (B) sup M. Stairs modA - Communication N. Comprehension (B) Tahmina O. Expression (B) Tahmina - Social Cognition P. Social Interaction Tahmina Q. Problem Solving sup R. Memory Tahmina - Endurance Good - Balance Fair - Safety Awareness Good QI SCORES: - Self-Care A. Eating 06-Independent B. Oral hygiene 03-Partial/moderate assistance C. Toileting hygiene 88-Not attempted due to medical condition or safety concerns E. Shower/bathe self 02-Substantial/maximal assistance F. Upper body dressing 03-Partial/moderate assistance G. Lower body dressing 02-Substantial/maximal assistance H. Putting on/taking off footwear 88-Not attempted due to medical condition or safety concerns - Mobility A. Roll left and right 03-Partial/moderate assistance B. Sit to lying 03-Partial/moderate assistance C. Lying to sitting on side of bed 02-Substantial/maximal assistance D. Sit to stand 02-Substantial/maximal assistance E. Chair/kst-[id number] transfer 02-Substantial/maximal assistance F. Toilet transfer 02-Substantial/maximal assistance G. Car transfer 88-Not attempted due to medical condition or safety concerns I. Walk 10 feet 02-Substantial/maximal assistance J. Walk 50 feet with two turns 88-Not attempted due to medical condition or safety concerns K. Walk 150 feet 88-Not attempted due to medical condition or safety concerns L. Walking 10 feet on uneven surfaces 88-Not attempted due to medical condition or safety concerns M. 1 step (curb) 88-Not attempted due to medical condition or safety concerns N. 4 steps 88-Not attempted due to medical condition or safety concerns O. 12 steps 88-Not attempted due to medical condition or safety concerns P. Picking up object 88-Not attempted due to medical condition or safety concerns R. Wheel 50 feet with two turns 88-Not attempted due to medical condition or safety concerns S. Wheel 150 feet 88-Not attempted due to medical condition or safety concerns - Bladder and Bowel Bladder continence Bowel continence - Endurance Good - Balance Fair - Safety Awareness Fair CURRENT [facility]. DEFICITS: Mobility, Balance, Safety Awareness, and Self-Care SIGNATURE PANEL: (CDT)
[2021-01-27] MEDS: MELATONIN 3 MG TABLET PO PRN (19:33)
[2021-01-28] MEDS: LEVOTHYROXINE SOD 0.088 MG TAB PO SCH (06:56)
[2021-01-28] MEDS: LOVENOX SQ SCH (07:00)
[2021-01-28] MEDS: JUVEN PACKET PO SCH ×2 (08:00→19:40)
[2021-01-28] MEDS: TIMOLOL OPTH OPTH SCH ×2 (08:00→19:40)
[2021-01-28] MEDS: SYSTANE ULTRA EYE OPTH SCH ×2 (08:00→19:40)
[2021-01-28] MEDS: LIDOCAINE 4% PATCH TOP SCH (08:05)
[2021-01-28] MEDS: ROSUVASTATIN 10 MG TAB PO SCH (08:05)
[2021-01-28] MEDS: CALCIUM CARB 500MG/VIT D 200 IU TAB PO SCH (08:05)
[2021-01-28] MEDS: CRANBERRY FRUIT EXTRACT 200 MG CAP PO SCH (08:06)
[2021-01-28] MEDS: MULTIVITAMIN TAB PO SCH (08:06)
[2021-01-28] MEDS: ASPIRIN 81 MG CHEWABLE TABLET PO SCH (08:06)
[2021-01-28] MEDS: FERROUS SULFATE 325 MG TAB PO SCH (08:06)
[2021-01-28] MEDS: FE SULF/FA/VIT B COMP & C TAB PO SCH (08:07)
[2021-01-28] MEDS: METOPROLOL TAR 50 MG TAB PO SCH ×2 (08:07→19:40)
[2021-01-28] MEDS: ENSURE ENLIVE 237 ML CAN PO SCH ×2 (09:28→19:40)
--- NOTE | 2021-01-28 09:50 | P.RH.PN ---
Estimated Length of Stay: 12 Expected Discharge Date: 01/30/21 Discharge Disposition Plan: Home Family Support: Yes Penitentiary Goal: Mobility, Transfers, Self Care Vital Signs: Last Vital Signs Temp 98.9 F 01/28/21 07:13 Pulse 68 01/28/21 08:07 Resp 16 01/28/21 07:13 BP 148/57 H 01/28/21 08:07 Pulse Ox 96 01/28/21 07:13 Laboratory: Laboratory Last Values WBC 7.20 K/uL (4.3-10.9) D 01/27/21 07:12 RBC 2.94 M/uL (3.86-4.86) L 01/27/21 07:12 Hgb 9.6 g/dL (12.0-15.0) L 01/27/21 07:12 Hct 28.5 % (36.0-45.0) L 01/27/21 07:12 MCV 96.9 fL (80-100) 01/27/21 07:12 MCH 32.7 pg (27.0-35.0) 01/27/21 07:12 MCHC 33.8 g/dL (32.0-36.0) 01/27/21 07:12 RDW 15.2 % (12.1-15.2) 01/27/21 07:12 Plt Count 339 K/uL (152-406) 01/27/21 07:12 MPV 9.0 fL (7.6-11.3) 01/27/21 07:12 Neutrophils % 58.6 % (41.7-73.7) 01/27/21 07:12 Lymphocytes % 26.0 % (15.3-44.8) 01/27/21 07:12 Monocytes % 11.4 % (3.3-12.3) 01/27/21 07:12 Eosinophils % 3.3 % (0-4.4) 01/27/21 07:12 Basophils % 0.7 % (0-1.3) 01/27/21 07:12 Absolute Neutrophils 4.2 K/uL (1.8-8.0) 01/27/21 07:12 Absolute Lymphocytes 1.9 K/uL (0.7-4.9) 01/27/21 07:12 Absolute Monocytes 0.8 K/uL (0.1-1.3) 01/27/21 07:12 Absolute Eosinophils 0.2 K/uL (0-0.5) 01/27/21 07:12 Absolute Basophils 0.1 K/uL (0-0.5) 01/27/21 07:12 Sodium 135 mmol/L (136-145) L 01/27/21 07:12 Potassium 4.7 mmol/L (3.5-5.1) 01/27/21 07:12 Chloride 102 mmol/L (98-107) 01/27/21 07:12 Carbon Dioxide 32 mmol/L (21-32) 01/27/21 07:12 BUN 22 mg/dL (7-18) H 01/27/21 07:12 Creatinine 0.72 mg/dL (0.55-1.3) 01/27/21 07:12 Estimated GFR 77 mL/min (=/>90) L 01/27/21 07:12 Glucose 115 mg/dL (74-106) H 01/27/21 07:12 Calcium 7.9 mg/dL (8.5-10.1) L 01/27/21 07:12 Magnesium 2.3 mg/dL (1.8-2.4) 01/27/21 07:12 Albumin 3.1 g/dL (3.4-5.0) L 01/27/21 07:12 Prealbumin 20.3 mg/dL (20-40) 01/27/21 07:12 Urine Color Yellow (Yellow) 01/19/21 13:33 Urine Appearance Clear (Clear) 01/19/21 13:33 Urine pH 7.5 (5.0-7.0) H 01/19/21 13:33 Ur Specific [place] 1.010 (1.005-1.030) 01/19/21 13:33 Glucose (UA)(Auto) Negative (Negative) 01/19/21 13:33 Urine Ketones Negative (Negative) 01/19/21 13:33 Urine Blood Negative (Negative) 01/19/21 13:33 Urine Nitrite Negative (Negative) 01/19/21 13:33 Urine Bilirubin Negative (Negative) 01/19/21 13:33 Urine Urobilinogen 1.0 mg/dL (0.2-1.0) 01/19/21 13:33 Ur Leukocyte Esterase Trace (Negative) H 01/19/21 13:33 Urine RBC <5 /HPF (NONE SEEN) 01/19/21 13:33 Urine WBC 5-10 /HPF (<5) H 01/19/21 13:33 Ur Squamous Epith Cells 5-10 /HPF (NONE SEEN) H 01/19/21 13:33 Ur Urothelial Cells <5 /HPF (NONE SEEN) 01/19/21 13:33 Urine Bacteria <20 /HPF (<20) 01/19/21 13:33 Urine Culture Reflexed Not needed 01/19/21 13:33 Urine Total Protein Negative (Negative) 01/19/21 13:33 SARS-CoV-2 RNA (RT-PCR) Negative (NEGATIVE) 01/26/21 06:25 Weight: 141 lb 4.8 oz Within Defined Parameters: Yes Wound Present: No Closed Surgical Incision Present: Yes Negative Pressure Wound Therapy Present: No Physician Update: She is doing well with modified independence with gait, transfers and most ADLs. She will do out patient therapy. Labs are stable. Medical Issues: stable Pain Issues: minimal Nutritional Needs: 100% Education Needed: knows hip precautions well Functional Improvement: Patient has met all short-term and long-term goals at this time, w/ the exception of a car transfer, due to hospital policies regarding Covid-19. Patient presents w/ good work ethic, and safety awareness. Speech Therapy Update: wnl Summary: Patient's care plan and exterminator helper goals have been reviewed and revised as necessary. Please see the Rehabilitation Signature page for all necessary signatures.
[2021-01-28] MEDS ORDERED: ACETAMINOPHEN 500 MG TAB PO PRN (11:31)
[2021-01-28] MEDS ORDERED: MELATONIN 5 MG TABLET PO PRN (11:34)
[2021-01-29] MEDS: LEVOTHYROXINE SOD 0.088 MG TAB PO SCH (07:21)
[2021-01-29] MEDS: LOVENOX SQ SCH (07:22)
[2021-01-29] MEDS: TIMOLOL OPTH OPTH SCH ×2 (08:00→19:44)
[2021-01-29] MEDS: SYSTANE ULTRA EYE OPTH SCH ×2 (08:00→19:44)
[2021-01-29] MEDS: LIDOCAINE 4% PATCH TOP SCH (08:20)
[2021-01-29] MEDS: MULTIVITAMIN TAB PO SCH (08:21)
[2021-01-29] MEDS: ASPIRIN 81 MG CHEWABLE TABLET PO SCH (08:21)
[2021-01-29] MEDS: CRANBERRY FRUIT EXTRACT 200 MG CAP PO SCH (08:22)
[2021-01-29] MEDS: METOPROLOL TAR 50 MG TAB PO SCH ×2 (08:23→19:43)
[2021-01-29] MEDS: FERROUS SULFATE 325 MG TAB PO SCH (08:23)
[2021-01-29] MEDS: ROSUVASTATIN 10 MG TAB PO SCH (08:23)
[2021-01-29] MEDS: FE SULF/FA/VIT B COMP & C TAB PO SCH (08:23)
[2021-01-29] MEDS: CALCIUM CARB 500MG/VIT D 200 IU TAB PO SCH (08:27)
[2021-01-29] MEDS: ENSURE ENLIVE 237 ML CAN PO SCH ×2 (08:28→19:42)
[2021-01-29] MEDS: JUVEN PACKET PO SCH ×2 (08:28→19:42)
[2021-01-29] MEDS ORDERED: TRAZODONE 50 MG TABLET PO PRN (12:18)
[2021-01-30] MEDS: LEVOTHYROXINE SOD 0.088 MG TAB PO SCH (06:54)
[2021-01-30] MEDS: LOVENOX SQ SCH (06:54)
[2021-01-30 07:12] VITALS: BP 148/63; TEMP 98.5
[2021-01-30] MEDS: TIMOLOL OPTH OPTH SCH (08:00)
[2021-01-30] MEDS: SYSTANE ULTRA EYE OPTH SCH (08:00)
[2021-01-30] MEDS: LIDOCAINE 4% PATCH TOP SCH (08:15)
[2021-01-30] MEDS: MULTIVITAMIN TAB PO SCH (08:16)
[2021-01-30] MEDS: METOPROLOL TAR 50 MG TAB PO SCH (08:16)
[2021-01-30] MEDS: CRANBERRY FRUIT EXTRACT 200 MG CAP PO SCH (08:16)
[2021-01-30] MEDS: ROSUVASTATIN 10 MG TAB PO SCH (08:16)
[2021-01-30] MEDS: ASPIRIN 81 MG CHEWABLE TABLET PO SCH (08:16)
[2021-01-30] MEDS: FE SULF/FA/VIT B COMP & C TAB PO SCH (08:17)
[2021-01-30] MEDS: CALCIUM CARB 500MG/VIT D 200 IU TAB PO SCH (08:17)
[2021-01-30] MEDS: FERROUS SULFATE 325 MG TAB PO SCH (08:17)
[2021-01-30] MEDS: ENSURE ENLIVE 237 ML CAN PO SCH (09:36)
[2021-01-30] MEDS: JUVEN PACKET PO SCH (09:36)
== END 2021-01-30 09:30 | disposition home or self-care (01) | DRG 536 ==
LOC: 5TH 01-19 10:32
PROVIDERS: ADMIT Psychiatry & Neurology Neurology with Special Qualifications in Child Neurology; ATTEND Psychiatry & Neurology Neurology with Special Qualifications in Child Neurology
DX: S72.001A Fracture of unspecified part of neck of right femur, initial encounter for closed fracture (principal); I10 Essential (primary) hypertension; E78.5 Hyperlipidemia, unspecified; E03.9 Hypothyroidism, unspecified; Z96.641 Presence of right artificial hip joint; Z20.822 Contact with and (suspected) exposure to COVID-19
CPT/HCPCS: 36415; 80048; 81003; 81015; 82040; 83735; 84134; 85025; 87086; 87088; 97110; 97116; 97161; 97530; 97542; J1650; U0003